=== PATIENT | male | born 1955 | race Caucasian/White ===

== ENCOUNTER 2016-10-31 16:19 | Emergency (ER) | payer OTHER ==
[~2016-10-31] VITALS: Ht 177.8 cm; Wt 90.0 kg
[2016-10-31 16:51] VITALS: Ht 177.8 cm; Wt 90.0 kg
[2016-10-31] MEDS ORDERED: SOD CHLORIDE 0.9% 500 ML IV STA (20:35)
[2016-10-31] MEDS ORDERED: KETOROLAC 15 MG INJ IV STA (20:35)
[2016-10-31 20:58] LABS: ADD SCAN DIFF NO
[2016-10-31 21:02] LABS: BASOPHILS % 0.5 % (0.0-2.0); EOSINOPHILS # 0.2 10^3/ul (0.0-0.5); HEMATOCRIT 46.1 % (42.0-52.0); LYMPHOCYTES # 2.9 10^3/ul (0.8-2.9); LYMPHOCYTES % 34.3 % (15.0-51.0); MEAN CORPUSCULAR HEMOGLOBIN 28.8 pg (29.0-33.0); MEAN CORPUSCULAR HGB CONC 32.5 g/dl (32.0-37.0); MEAN CORPUSCULAR VOLUME 88.7 fl (82.0-101.0); MEAN PLATELET VOLUME 9.9 fl (7.4-10.4); MONOCYTE # 0.8 10^3/ul (0.3-0.9); NEUTROPHIL # 4.4 10^3/ul (1.6-7.5); NEUTROPHILS % 52.8 % (39.0-77.0); PLATELET COUNT 255 10^3/UL (140-415); RED CELL DISTRIBUTION WIDTH 13.2 % (11.5-14.5); WHITE BLOOD COUNT 8.3 10^3/ul (4.8-10.8)
[2016-10-31 21:16] LABS: CHLORIDE 101 mmol/L (97-110)
[2016-10-31 21:17] LABS: POTASSIUM 4.1 mmol/L (3.5-5.1); SODIUM 143 mmol/L (135-144)
[2016-10-31 21:19] LABS: ALBUMIN/GLOBULIN RATIO 1.21; ALKALINE PHOSPHATASE 102 IU/L (42-121); ANION GAP 16 (8-16); ASPARTATE AMINO TRANSFERASE 30 IU/L (15-46); BILIRUBIN,INDIRECT 0.6 mg/dl (0-1.1); BILIRUBIN,TOTAL 0.6 mg/dl (0.2-1.3); CARBON DIOXIDE 30 mmol/L (21-31); CREATININE 1.09 mg/dl (0.61-1.24); TOTAL PROTEIN 7.3 g/dl (6.1-8.1)
[2016-10-31 21:20] LABS: ALANINE AMINOTRANSFERASE 54 IU/L (13-69); BLOOD UREA NITROGEN 31 mg/dl (7-20); CALCIUM 9.4 mg/dl (8.4-10.2); GLUCOSE 98 mg/dl (70-220)
--- NOTE | 2016-10-31 21:38 | RADRPT ---
PROCEDURE: XR Chest. CLINICAL INDICATION: Abdominal pain. TECHNIQUE: Single frontal view of the chest. COMPARISON: None. FINDINGS: The cardiomediastinal silhouette is within normal limits. The lungs are clear. No signs of pleural f luid or pneumothorax are seen. The osseous structures and soft tissues are unremarkable. IMPRESSION: No evidence for active cardiopulmonary disease. RPTAT: [facility] Physician Gelacio Date Time Electronically viewed and signed by Physician Gelacio on 10/31/2016 21:38 RS/
[2016-10-31 21:40] LABS: INR 1.11; PROTIME 14.3 Sec (12.2-14.2); PT RATIO 1.1
[2016-10-31 21:43] LABS: TROPONIN-I < 0.012 ng/ml (0.00-0.12)
[2016-10-31] MEDS ORDERED: NAPR-688 PO (21:55)
--- NOTE | 2016-10-31 22:00 | ERD ---
ER Documentation Chief Complaint Date/Time DATE: 10/31/16 TIME: 21:58 Chief Complaint INTERMITTENT CHEST PAIN VAGUE ONSET ROS All systems reviewed and are negative except as per history of present illness. Medications Home Meds Active Scripts Naproxen* (Naproxen*) 500 Mg Tablet, 500 MG PO BID Y for PAIN, #30 TAB Prov:AURORA MIKE MD 10/31/16 Allergies Allergies: Coded Allergies: No Known Allergy (Unverified , 10/31/16) PMhx/Soc Peripheral vascular disease with left femoral artery stents, peripheral vascular disease, chronic obstructive pulmonary disease, previous stroke, recent cardiac stress test which was negative and recent cardiac workup as an inpatient which was unremarkable. History of Surgery: Yes (3 STENTS ON LEFT LEG) Anesthesia Reaction: No Hx 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 Disorder: No Hx Respiratory Disorders: No Hx Cardiac Disorders: Yes (HTN, PVD) Hx Psychiatric Problems: Yes (ANXIETY) Hx Miscellaneous Medical Probl: No Hx Alcohol Use: Yes Hx Substance Use: Yes (FORMER ) Hx Tobacco Use: Yes Smoking Status: Current every day smoker FmHx Family History: diabetes Physical Exam Vitals Vital Signs Date Time Temp Pulse Resp B/P Pulse Ox O2 Delivery O2 Flow Rate FiO2 10/31/16 20:24 98.0 58 18 111/67 96 Room Air 10/31/16 16:51 97.6 60 16 108/68 98 Physical Exam Const: [] Head: Atraumatic Eyes: Normal Conjunctiva ENT: Normal External Ears, Nose and Mouth. Neck: Full range of motion..~ No meningismus. Resp: Clear to auscultation bilaterally Cardio: Regular rate and rhythm, no murmurs Abd: Soft, non tender, non distended. Normal bowel sounds Skin: No petechiae or rashes Back: No midline or flank tenderness Ext: No cyanosis, or edema Neur: Awake and alert Psych: Normal Mood and Affect Result Diagram: 10/31/16204410/31/162044 Results 24 hrs Laboratory Tests Test 10/31/16 20:45 White Blood Count 8.310^3/ul Red Blood Count 5.2010^6/ul Hemoglobin 15.0g/dl Hematocrit 46.1% Mean Corpuscular Volume 88.7fl Mean Corpuscular Hemoglobin 28.8pg Mean Corpuscular Hemoglobin Concent 32.5g/dl Red Cell Distribution Width 13.2% Platelet Count 27306^3/UL Mean Platelet Volume 9.9fl Neutrophils % 52.8% Lymphocytes % 34.3% Monocytes % 10.0% Eosinophils % 2.0% Basophils % 0.5% Nucleated Red Blood Cells % 0.0/100WBC Neutrophils # 4.410^3/ul Lymphocytes # 2.910^3/ul Monocytes # 0.810^3/ul Eosinophils # 0.210^3/ul Basophils # 0.010^3/ul Nucleated Red Blood Cells # 0.010^3/ul Prothrombin Time 14.3Sec Prothrombin Time Ratio 1.1 INR International Normalized Ratio 1.11 Sodium Level 143mmol/L Potassium Level 4.1mmol/L Chloride Level 101mmol/L Carbon Dioxide Level 30mmol/L Anion Gap 16 Blood Urea Nitrogen 31mg/dl Creatinine 1.09mg/dl Glucose Level 98mg/dl Calcium Level 9.4mg/dl Total Bilirubin 0.6mg/dl Direct Bilirubin 0.00mg/dl Indirect Bilirubin 0.6mg/dl Aspartate Amino Transf (AST/SGOT) 30IU/L Alanine Aminotransferase (ALT/SGPT) 54IU/L Alkaline Phosphatase 102IU/L Troponin I < 0.012ng/ml Total Protein 7.3g/dl Albumin 4.0g/dl Globulin 3.30g/dl Albumin/Globulin Ratio 1.21 Lipase 89U/L Current Medications Medications (Trade) Dose Ordered Sig/Briseida Route PRN Reason Start Time Stop Time Status Last Admin Dose Admin Sodium Chloride (NS) 500 ml @ 500 mls/hr Q1H STAT IV 10/31/16 20:35 10/31/16 21:34 DC 10/31/16 20:45 Ketorolac Tromethamine (Toradol) 15 mg ONCE STAT IV 10/31/16 20:35 10/31/16 20:36 DC 10/31/16 20:45 Procedures/MDM IV line was established patient was placed on quality assurance monitor chassis rhythm strip revealed a sinus rhythm at about 60 bpm with upright P and T waves. Patient was afebrile. EKG performed, read by me revealed a sinus bradycardia 56 bpm, normal axis, with a right ventricular conduction delay and a QRS duration of 100 ms, no concerning ST elevations or depressions noted. Chest X-ray 1V Interpreted by me: Soft Tissue: No acute abnormalities Bones: No acute abnormalities Mediastinum/Cardiac Silhouette/Lungs: No acute abnormalities Departure Diagnosis: Primary Impression: Chest pain Chest pain type: unspecified Qualified Code: R07.9 - Chest pain, unspecified type Condition: Good Patient Instructions: Chest Pain, Uncertain Cause AURORA MIKE MD Oct 31, 2016 22:00
[2016-10-31 22:58] VITALS: BP 107/66; PULSE 66; RESP 18; TEMP 98.2
== END 2016-10-31 23:25 | disposition home or self-care (01) ==
LOC: EDUNIT# 16:19 → E/R 16:19
DX: R07.9 Chest pain, unspecified (principal); I10 Essential (primary) hypertension; F17.210 Nicotine dependence, cigarettes, uncomplicated; J44.9 Chronic obstructive pulmonary disease, unspecified
CPT/HCPCS: 36415; 71010; 80053; 83690; 84484; 85025; 85610; 93005; 96374; J1885; J7040; Z7502

== ENCOUNTER 2016-11-08 18:39 | Inpatient (IN) | payer OTHER ==
[~2016-11-08] VITALS: Ht 176.5 cm; Wt 85.0 kg
[~2016-11-08 18:39] MED LIST: NAPR-688 PO
[2016-11-08 19:29] VITALS: Ht 176.5 cm; Wt 85.0 kg
[2016-11-08] MEDS ORDERED: ALPR1TAB7 PO (23:40)
[2016-11-08] MEDS ORDERED: FURO20TA3 PO (23:40)
[2016-11-08] MEDS ORDERED: LISI2.5T59 PO (23:41)
[2016-11-08] MEDS ORDERED: GABA300C16 PO (23:42)
[2016-11-08] MEDS ORDERED: CLOP75TA4 PO (23:44)
[2016-11-08] MEDS ORDERED: ATOR40TA68 PO (23:44)
[2016-11-08] MEDS ORDERED: HYDR-906 PO (23:45)
[2016-11-08] MEDS ORDERED: METO-448 PO (23:46)
[2016-11-08 23:50] LABS: ADD SCAN DIFF NO
[2016-11-08 23:51] LABS: BASOPHIL # 0.1 10^3/ul (0.0-0.1); BASOPHILS % 0.6 % (0.0-2.0); EOSINOPHILS # 0.2 10^3/ul (0.0-0.5); EOSINOPHILS % 2.6 % (0.0-7.0); HEMATOCRIT 40.3 % (42.0-52.0); HEMOGLOBIN 13.5 g/dl (14.0-18.0); LYMPHOCYTES # 2.6 10^3/ul (0.8-2.9); LYMPHOCYTES % 28.4 % (15.0-51.0); MEAN CORPUSCULAR HEMOGLOBIN 29.3 pg (29.0-33.0); MEAN CORPUSCULAR HGB CONC 33.5 g/dl (32.0-37.0); MEAN CORPUSCULAR VOLUME 87.4 fl (82.0-101.0); MEAN PLATELET VOLUME 9.8 fl (7.4-10.4); MONOCYTE # 0.7 10^3/ul (0.3-0.9); MONOCYTES % 7.6 % (0.0-11.0); NEUTROPHIL # 5.5 10^3/ul (1.6-7.5); NEUTROPHILS % 60.5 % (39.0-77.0); PLATELET COUNT 216 10^3/UL (140-415); RED BLOOD COUNT 4.61 10^6/ul (4.70-6.10); RED CELL DISTRIBUTION WIDTH 12.8 % (11.5-14.5); WHITE BLOOD COUNT 9.1 10^3/ul (4.8-10.8)
[2016-11-09] VITALS (8 sets, daily range): BP systolic 111–137; BP diastolic 68–78; PULSE 48–60; RESP 18–20; TEMP 98.5
[2016-11-09 00:06] LABS: PROTIME 13.2 Sec (12.2-14.2)
[2016-11-09 00:07] LABS: PARTIAL THROMBOPLASTIN TIME 30.4 Sec (25.0-35.0)
[2016-11-09 00:09] LABS: ALBUMIN 3.5 g/dl (3.3-4.9); ALBUMIN/GLOBULIN RATIO 1.25; ALKALINE PHOSPHATASE 98 IU/L (42-121); ANION GAP 8 (8-16); ASPARTATE AMINO TRANSFERASE 26 IU/L (15-46); BILIRUBIN,INDIRECT 0.2 mg/dl (0-1.1); BILIRUBIN,TOTAL 0.2 mg/dl (0.2-1.3); BLOOD UREA NITROGEN 18 mg/dl (7-20); CALCIUM 9.4 mg/dl (8.4-10.2); CARBON DIOXIDE 28 mmol/L (21-31); CHLORIDE 106 mmol/L (97-110); CREATININE 1.08 mg/dl (0.61-1.24); GLUCOSE 95 mg/dl (70-220); POTASSIUM 3.8 mmol/L (3.5-5.1); SODIUM 138 mmol/L (135-144); TOTAL PROTEIN 6.3 g/dl (6.1-8.1)
[2016-11-09 00:20] LABS: B-TYPE NATRIURETIC PEPTIDE 77 PG/ML (0-125)
[2016-11-09 00:30] LABS: ALANINE AMINOTRANSFERASE 49 IU/L (13-69); TROPONIN-I < 0.012 ng/ml (0.00-0.12)
--- NOTE | 2016-11-09 00:41 | RADRPT ---
PROCEDURE: Chest. CLINICAL INDICATION: Chest pain. TECHNIQUE: Single frontal view of the chest was obtained. COMPARISON: 10/31/2016. FINDINGS: The cardiac silhouette is within normal limits. The aortic arch is unremarkable. There is no focal consolidation, vascular congestion or pleural effusion. There is no pneumothorax. IMPRESSION: No evidence for active cardiopulmonary disease. .Victoriano Martinez MD, Date Time Electronically viewed and signed by .Victoriano Martinez MD, on 11/09/2016 00:41 .T/
--- NOTE | 2016-11-09 03:59 | ERA ---
ER Documentation Chief Complaint Date/Time DATE: 11/09/16 TIME: 03:58 Chief Complaint STATES "I HAD 3 STROKES TODAY AND PASSED OUT" +CP RADITING TO LT LEG. HPI This is a 60-year-old male comes in with chest pain radiating to his left arm and left leg. Chest pain is sharp, pressure-like, nonexertional positional no exacerbating relieving factors. Patient has history of hypertension and says he has had a history of a stroke in the past. ROS All systems reviewed and are negative except as per history of present illness. Medications Home Meds Active Scripts Naproxen* (Naproxen*) 500 Mg Tablet, 500 MG PO BID Y for PAIN, #30 TAB Prov:AURORA MIKE MD 10/31/16 Reported Medications Metoprolol Tartrate* (Lopressor*) 25 Mg Tab, 25 MG PO DAILY, #30 TAB 11/08/16 Hydrocodone/Acetaminophen ([place] 5-325 Tablet) 1 Each Tablet, 1 EACH PO Q6H for PAIN, TAB 11/08/16 Clopidogrel Bisulfate* (Clopidogrel Bisulfate*) 75 Mg Tablet, 75 MG PO DAILY, # 30 TAB 11/08/16 Atorvastatin* (Atorvastatin*) 40 Mg Tablet, 40 MG PO QHS, #30 TAB 11/08/16 Gabapentin* (Gabapentin*) 300 Mg Capsule, 300 MG PO TID, #90 CAP 11/08/16 Lisinopril* (Lisinopril*) 2.5 Mg Tablet, 2.5 MG PO DAILY, #30 TAB 11/08/16 Furosemide* (Furosemide*) 20 Mg Tablet, 20 MG PO BID, #30 TAB 11/08/16 Alprazolam* (Alprazolam*) 1 Mg Tablet, 1 MG PO Q8H Y for ANXIETY, TAB 11/08/16 Allergies Allergies: Coded Allergies: No Known Allergy (Unverified , 11/08/16) PMhx/Soc History of Surgery: Yes (3 STENTS ON LEFT LEG) Anesthesia Reaction: No Hx 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 Disorder: No Hx Respiratory Disorders: No Hx Cardiac Disorders: Yes (HTN, PVD) Hx Psychiatric Problems: Yes (ANXIETY) Hx Miscellaneous Medical Probl: No Hx Alcohol Use: Yes Hx Substance Use: Yes (FORMER ) Hx Tobacco Use: Yes Smoking Status: Current every day smoker Physical Exam Vitals Vital Signs Date Time Temp Pulse Resp B/P Pulse Ox O2 Delivery O2 Flow Rate FiO2 11/09/16 03:00 54 18 100/68 96 Nasal Cannula 2.0 11/09/16 01:00 75 18 118/74 99 Nasal Cannula 2.0 11/08/16 23:20 98.0 64 16 104/65 98 Nasal Cannula 2.0 11/08/16 23:20 Nasal Cannula 2 11/08/16 19:29 97.6 78 18 105/60 96 Physical Exam Const: [] Head: Atraumatic Eyes: Normal Conjunctiva ENT: Normal External Ears, Nose and Mouth. Neck: Full range of motion..~ No meningismus. Resp: Clear to auscultation bilaterally Cardio: Regular rate and rhythm, no murmurs Abd: Soft, non tender, non distended. Normal bowel sounds Skin: No petechiae or rashes Back: No midline or flank tenderness Ext: No cyanosis, or edema Neur: Awake and alert Psych: Normal Mood and Affect Result Diagram: 11/08/16 2330 11/08/16 2330 Results 24 hrs Laboratory Tests Test 11/08/16 23:30 White Blood Count 9.110^3/ul Red Blood Count 4.6110^6/ul Hemoglobin 13.5g/dl Hematocrit 40.3% Mean Corpuscular Volume 87.4fl Mean Corpuscular Hemoglobin 29.3pg Mean Corpuscular Hemoglobin Concent 33.5g/dl Red Cell Distribution Width 12.8% Platelet Count 26530^3/UL Mean Platelet Volume 9.8fl Neutrophils % 60.5% Lymphocytes % 28.4% Monocytes % 7.6% Eosinophils % 2.6% Basophils % 0.6% Nucleated Red Blood Cells % 0.0/100WBC Neutrophils # 5.510^3/ul Lymphocytes # 2.610^3/ul Monocytes # 0.710^3/ul Eosinophils # 0.210^3/ul Basophils # 0.110^3/ul Nucleated Red Blood Cells # 0.010^3/ul Prothrombin Time 13.2Sec Prothrombin Time Ratio 1.0 INR International Normalized Ratio 1.00 Activated Partial Thromboplast Time 30.4Sec Sodium Level 138mmol/L Potassium Level 3.8mmol/L Chloride Level 106mmol/L Carbon Dioxide Level 28mmol/L Anion Gap 8 Blood Urea Nitrogen 18mg/dl Creatinine 1.08mg/dl Glucose Level 95mg/dl Calcium Level 9.4mg/dl Total Bilirubin 0.2mg/dl Direct Bilirubin 0.00mg/dl Indirect Bilirubin 0.2mg/dl Aspartate Amino Transf (AST/SGOT) 26IU/L Alanine Aminotransferase (ALT/SGPT) 49IU/L Alkaline Phosphatase 98IU/L Troponin I < 0.012ng/ml B-Type Natriuretic Peptide 77PG/ML Total Protein 6.3g/dl Albumin 3.5g/dl Globulin 2.80g/dl Albumin/Globulin Ratio 1.25 Procedures/MDM EKG: Rate/Rhythm: [Normal Sinus Rhythm] QRS, ST, T-waves: [No changes consistent w/ acute ischemia] Impression: [No evidence of ischemia or arrhythmia] Chest X-ray 1V Interpreted by me: Soft Tissue: No acute abnormalities Bones: No acute abnormalities Mediastinum/Cardiac Silhouette/Lungs: [No acute abnormalities] Patient's symptoms are concerning for cardiac cause will require inpatient workup and continuous monitoring. Further w/u for ischemia, arrhythmia, PE or dissection will be deferred to the inpatient team. Accepting Care Team: Current data and ongoing care discussed. Time: 3 AM Primary Provider: Hospitalist Consulting: [XOXOXO] Outstanding Data: none Departure Diagnosis: Primary Impression: Chest pain Qualified Code: I20.9 - Chest pain due to myocardial ischemia, unspecified ischemic chest pain type Condition: Serious KENNETH SANCHEZ November 09, 2016 03:59
[2016-11-09] MEDS ORDERED: ONDANSETRON 4 MG INJ IV PRN (05:30)
[2016-11-09] MEDS ORDERED: NITROGLYCERIN (SL) 0.4 MG TAB SL PRN (05:30)
[2016-11-09] MEDS ORDERED: NACL 0.9% 3 ML SYG IV SCH (05:30)
[2016-11-09] MEDS ORDERED: ACETAMINOPHEN 325 MG TAB PO PRN (05:30)
[2016-11-09] MEDS: SOD CHLORIDE 0.9% 1,000 ML IV SCH ×2 (05:45→16:46)
[2016-11-09] MEDS ORDERED: HEPARIN 5,000 UNIT/0.5 ML VIAL SC SCH (06:00)
[2016-11-09 07:19] LABS: CREATINE KINASE 52 IU/L (23-200)
[2016-11-09 07:33] LABS: TROPONIN-I < 0.012 ng/ml (0.00-0.12)
--- NOTE | 2016-11-09 07:33 | HP ---
Date/Time of Note Date/Time of Note DATE: 11/09/16 TIME: 07:21 Assessment/Plan VTE Prophylaxis VTE Prophylaxis Intervention: heparin Lines/Catheters IV [facility]from [facility] Saline Lock Assessment/Plan Chief Complaint/Hosp Course This is a 60-year-old male being admitted today for chest pain and slurred speech to telemetry: #1 chest pain rule out ACS: Patient has multiple risk factors, we will order troponins 3, will order an echocardiogram. Telemetry monitoring, lipid panel. No active chest pain at this time. #2 slurred speech: Medication versus anxiety versus intracranial abnormality. At this time based on patient's presentation I do not believe that he suffered a stroke. His neurological exam is relatively within normal limits he does have some slurring of speech however the patient does appear very tired on exam and he did take Seroquel which could have made him drowsy. At this time will order a CAT scan of the brain. Continue to monitor the patient if we need further evaluation we may consider consulting neurology. Carotid duplex #3 PVD: Continue statin, confirmed medications again with patient as he does not recall all his meds right now, continue Plavix. PT evaluation once cleared from neurologic and cardiac perspective. Patient does state that he has been noticing weakness in his left leg and he would like to return to rehab again as he feels like he left rehab to early after his procedure on his left leg for. #4 polyneuropathy, stable continue gabapentin, hold [place] #5 anxiety, hold benzo until slurred speech evaluation completed. #6 DVT GI prophylaxis, heparin, acid [place] Problems: HPI/ROS Admit Date/Time Admit Date/Time 11/09/2016 Hx of Present Illness Chief complaint: Chest pain, "strokes" This is a 60-year-old male who is coming in today with multiple complaints of chest pain and and "strokes." Patient states that he has been having on and off chest pain of the left chest that comes and goes. He states is a sharp pain. Denies any diaphoresis or lower extremity swelling. Patient also states that from a friend he took Seroquel and after taking Seroquel he started noticing seeing mancera and apparently stated out a few times. He states that he thinks that he had multiple strokes. He states that he also has noticed some slurring of speech. Patient is currently living out of his car and does not like living there. On physical exam, patient repeatedly states that he does not want to go back to his car. He also states that during a previous admission where he was treated for left lower extremity peripheral vascular disease with stents placed that he was sent to rehab however he left rehab early and he would like to go back again. ROS Const: Negative for fever, chills, weight gain or weight loss, fatigue, or diaphoresis Eyes : No pain discharge or redness or change in visual acuity ENT: No pain, sore throat, congestion, congestion, dysphagia or discharge Respiratory: No shortness of breath, cough, sputum, wheezing, or pleuritic pain Cardiovascular: Negative except for what is mentioned in HPI GI : no change in appetite, abdominal pain, nausea, vomiting, diarrhea, constipation, or change in the color his stool Genitourinary: No dysuria, hematuria, flank pain , discharge or CVA tenderness Musculoskeletal: No joint pain, back pain, neck pain, restricted range of motion in neck or joints Skin: No rash, bruising or hives Neuro: Negative except for what is mentioned in HPI Endocrine: No polyuria, polydipsia, temperature intolerance Psych: No hallucination, depression, anxiety or suicidal ideation PMH/Family/Social Past Medical History Peripheral vascular disease, [place], COPD, polyneuropathy Past Surgical History Left lower extremity stents Family History Significant Family History: diabetes, hypertension Social History Alcohol Use: none Smoking Status: Current every day smoker Drug Use: none Exam/Review of Systems Vital Signs Vitals Vital Signs Date Time Temp Pulse Resp B/P Pulse Ox O2 Delivery O2 Flow Rate FiO2 11/09/16 05:00 71 16 122/75 97 Nasal Cannula 2.0 11/08/16 23:20 98.0 Exam Exam General: Patient lying in bed comfortably. The patient is alert oriented -3 HEENT: Atraumatic, normocephalic. The pupils are equal, round and reactive. Extraocular motor are intact Neck: Supple with full range of motion. No rigidity or meningismus Chest: Nontender Lungs: Clear to auscultation bilaterally no crackles rales or wheezing Heart: Normal S1-S2, Regular rhythm and rate. Abdomen: Soft , nontender, nondistended , bowel sounds are present. No guarding no rebound tenderness , No masses or organomegaly. No costovertebral temporal angle mass Extremities: Normal to inspection, no edema no cyanosis Neurologic: Left lower extremity strength 4-5, mild slurring of speech however patient was in and out of sleep during exam. Additional Comments PROCEDURE: Chest. CLINICAL INDICATION: Chest pain. TECHNIQUE: Single frontal view of the chest was obtained. COMPARISON: 10/31/2016. FINDINGS: The cardiac silhouette is within normal limits. The aortic arch is unremarkable. There is no focal consolidation, vascular congestion or pleural effusion. There is no pneumothorax. IMPRESSION: No evidence for active cardiopulmonary disease. .Victoriano Martinez MD, MD Date Time Electronically viewed and signed by .Victoriano Martinez MD, MD on 11/09/2016 00:41 EKG: Rate/Rhythm: [Normal Sinus Rhythm] QRS, ST, T-waves: [No changes consistent w/ acute ischemia] Impression: [No evidence of ischemia or arrhythmia] Above per ED documentation Labs Result Diagram: 11/08/16 2330 11/08/16 2330 Medications Medications Current Medications Sodium Chloride (NS) 1,000 ml @ 100 mls/hr Q10H IV Last administered on t 05:45; Admin Dose 100 MLS/HR; Start 11/09/16 at 05:11 Ondansetron HCl (Zofran Inj) 4 mg Q6H PRN IV NAUSEA AND/OR VOMITING; Start 11/09 at 05:30 Nitroglycerin (Nitroglycerin (Sl Tab) 0.4 Mg) 1 tab Q5M PRN SL CHEST PAIN; Start 11/09/16 at 05:30 Acetaminophen (Tylenol Tab) 650 mg Q6H PRN PO PAIN LEVEL 1-3 OR FEVER; Start at 05:30 Famotidine (Pepcid) 20 mg Q12 PO ; Start 11/09/16 at 09:00 Heparin Sodium (Porcine) (Heparin (5000 Units/0.5 ml)) 5,000 unit Q8 SC ; Start 11/09/16 at 06:00 BALDOMERO SIMMS November 09, 2016 07:31
--- NOTE | 2016-11-09 07:38 | RADRPT ---
PROCEDURE: CT Brain without contrast. CLINICAL INDICATION: Pain, headache TECHNIQUE: Routine CT scan of the brain was performed on a high resolution multi detector scanner without intravenous contrast. One or more of the following dose reduction techniques were used: Auto mated exposure control; Adjustment of the mA and/or kV according to patient size; Use of iterative r econstruction technique. CTDI = 44 mGy. DLP = 110 mGy-cm. COMPARISON: No prior relevant examinations are available for comparison. FINDINGS: Hemorrhage: No evidence of intracranial hemorrhage. Acute ischemic changes: No evidence of acute ischemic changes. Mass effect/Midline shift: None. Parenchymal volume: Mild central parenchymal volume loss is evident. Ventricular system: Concordant with parenchymal volume. Chronic changes: Small chronic appearing infarcts of the right periventricular white matter and left sub insular region measuring 10 mm. There are multiple areas of low attenuation change within the supratentorial white matter most compatible with moderate chronic microvascular ischemic changes. Atherosclerotic calcifications of the cavernous portions of both internal carotid arteries are prese nt. Extracranial soft tissues: Unremarkable. Calvarium: No fractures. Paranasal sinuses: Visualized paranasal sinuses are clear. Mastoid air cells: Visualized mastoid air cells are clear. IMPRESSION: No acute intracranial abnormalities. Chronic-appearing white matter infarcts of the right jamison radiata and left sub insular region. Mod erate chronic-appearing microvascular ischemic changes of the supratentorial white matter. RPTAT: AADD .Gilberto Cramer MD, Date Time Electronically viewed and signed by .Gilberto Cramer MD, on 11/09/2016 07:38 .B/
--- NOTE | 2016-11-09 09:41 | RADRPT ---
PROCEDURE: US Carotids. CLINICAL INDICATION: bruit , slurred speech TECHNIQUE: Multiple sonographic of the carotid bifurcation region and vertebral arteries were obta ined utilizing mancera scale, duplex and color-flow imaging. The images were reviewed on a PACS worksta tion. COMPARISON: No prior studies are available for comparison. FINDINGS: Evaluation of the right carotid bifurcation region reveals mild calcific atherosclerotic disease. Evaluation of the left carotid bifurcation region reveals mild calcific atherosclerotic disease. There is antegrade flow within the vertebral arteries bilaterally. RIGHT CAROTID MEASUREMENTS: Common Carotid [id number] (cm/sec) Internal Carotid Artery - fmlbyxtp80 (cm/sec) Internal Carotid Artery - mid44.4 (cm/sec) Internal Carotid Artery - xgaozb79.7 (cm/sec) Internal Carotid/Common Carotid1.33 LEFT CAROTID MEASUREMENTS: Common Carotid Jzpxxi57 (cm/sec) Internal Carotid Artery - gauonjbo78.4 (cm/sec) Internal Carotid Artery - mid59.2 (cm/sec) Internal Carotid Artery - ltbwoz75 (cm/sec) Internal Carotid/Common Carotid1.22 RPTAT: AA IMPRESSION: No evidence for hemodynamically significant stenosis in the bilateral internal carotid arteries - va lidated velocity measurements with angiographic measurements, velocity criteria are extrapolated fro m diameter data as defined by the Society of Radiologists in Ultrasound Consensus Conference Radiolo gy 2003; 229;340-346. This study does indirectly reference the measurement of the distal ICA diamet er as the denominator for stenosis measurement. Normal antegrade flow in the vertebral arteries bilaterally. .Alden Grijalva MD, MD Date Time Electronically viewed and signed by .Alden Grijalva MD, MD on 11/09/2016 09:41 .S/
[2016-11-09] MEDS: GABAPENTIN 300 MG CAP PO SCH ×3 (10:11→21:02)
[2016-11-09] MEDS: METOPROLOL 25 MG TAB PO SCH (10:11)
[2016-11-09] MEDS: FAMOTIDINE 20 MG TAB PO SCH ×2 (10:13→21:02)
[2016-11-09] MEDS: LISINOPRIL 5 MG TAB PO SCH (10:13)
[2016-11-09] MEDS: CLOPIDOGREL 75 MG TAB PO SCH (10:13)
[2016-11-09 11:25] LABS: CHOL/HDL RATIO 3.7 RATIO
[2016-11-09 14:06] LABS: CREATINE KINASE 46 IU/L (23-200)
[2016-11-09 14:18] LABS: CK-MB 0.35 ng/ml (0.0-2.4); TROPONIN-I < 0.012 ng/ml (0.00-0.12)
[2016-11-09] MEDS ORDERED: morphine 2 MG INJ IV PRN (19:00)
[2016-11-09] MEDS: morphine 2 MG INJ IV PRN ×2 (19:22→23:37)
[2016-11-09] MEDS: ATORVASTATIN 40 MG TAB PO SCH (21:02)
[2016-11-09] MEDS: HEPARIN 5,000 UNIT/0.5 ML VIAL SC SCH (21:07)
[2016-11-10] VITALS (11 sets, daily range): BP systolic 96–126; BP diastolic 62–70; PULSE 45–75; RESP 18–20
[2016-11-10] MEDS: SOD CHLORIDE 0.9% 1,000 ML IV SCH ×2 (03:39→11:11)
[2016-11-10] MEDS: morphine 2 MG INJ IV PRN ×5 (03:39→19:55)
[2016-11-10] MEDS: HEPARIN 5,000 UNIT/0.5 ML VIAL SC SCH ×3 (06:40→21:22)
[2016-11-10] MEDS: METOPROLOL 25 MG TAB PO SCH (08:07)
[2016-11-10] MEDS: LISINOPRIL 5 MG TAB PO SCH (08:08)
[2016-11-10] MEDS: CLOPIDOGREL 75 MG TAB PO SCH (08:30)
[2016-11-10] MEDS: GABAPENTIN 300 MG CAP PO SCH ×3 (08:30→21:17)
[2016-11-10] MEDS: FAMOTIDINE 20 MG TAB PO SCH ×2 (08:31→21:17)
[2016-11-10] MEDS ORDERED: BISACODYL (EC) 5 MG TAB PO PRN (14:30)
--- NOTE | 2016-11-10 15:55 | CONS ---
DATE OF ADMISSION: 11/09/2016 DATE OF CONSULTATION: 11/10/2016 TYPE OF CONSULTATION: Vascular surgery. Dear Doctors: Mr. Kaplan is a 60-year-old gentleman who has been admitted to [facility] secondary to chest pain and slurred speech in which he was admitted to telemetry for evaluation. It seems th at the patient thought he was having a stroke after taking a medication called Seroquel in order to help him sleep better. During his evaluation, the patient's symptoms seem to have resolved, and upo n his evaluation of a CT scan of the head, no acute intracranial abnormalities were identified. Fur ther, the patient had a carotid Doppler that did not identify any hemodynamically significant stenos is. The patient is currently an active smoker, about a pack every 2 days for the past 40 years, and he has had history of bilateral lower extremity atherosclerosis with disabling claudication. It se ems the patient had undergone a left lower extremity angiogram and intervention at an outside hospit al by an power driven brush maker. The patient mentioned he had some stents placed, and his limb seems to be slightly better. However, he has noticed that his right lower extremity has significan tly worsened since his intervention, and the patient has very limited 5- to 10-minute short-distance claudication. At the moment, he denies shortness of breath, chest pain, nausea, vomiting, fever or chills. REVIEW OF SYSTEMS: A 12-point review performed and negative except what is mentioned in the HPI. PAST MEDICAL HISTORY: Entails homelessness, noncompliance, bilateral lower extremity atheroscleroti c disease with short-distance disabling claudication, peripheral neuropathy, [place], COPD. SURGICAL HISTORY: Left lower extremity angiogram and intervention. Active smoker. FAMILY HISTORY: Positive for diabetes and hypertension. SOCIAL HISTORY: Positive for tobacco. Denies alcohol or illicit drug use. PHYSICAL EXAMINATION: GENERAL: Alert, oriented x3. No apparent distress. HEENT: Normocephalic, atraumatic. EOMI. Mucosa moist. NECK: Supple. No carotid bruit. PULMONARY: Clear to auscultation bilaterally. No crackles. CARDIOVASCULAR: S1, S2 present. No murmurs. ABDOMEN: Soft, nontender, nondistended. Bowel sounds positive. RIGHT LOWER EXTREMITY: Palpable femoral pulse, nonpalpable pedal pulse. Motor, sensory intact. Ca pillary refill 3 to 4 seconds and dependent rubor. The patient had a previous injury to the right f oot where there is a previous surgical scar on the plantar aspect of the forefoot. LEFT LOWER EXTREMITY: Palpable femoral pulse, nonpalpable pedal pulse. Motor, sensory intact. Cap illary refill 2 to 3 seconds. ASSESSMENT AND PLAN: Bilateral lower extremity atherosclerosis with short-distance disabling claudi cation: Seems the patient has peripheral arterial disease with being an active smoker. I have enco uraged the patient for smoking cessation and educated him. However, the patient will likely require noninvasive vascular studies in order to better ascertain his infrainguinal disease. Further, we w ill evaluate his stent placement to the left lower extremity as well. Will plan to educate the patient more in terms of his overall medical health and also have the patie nt on antiplatelets, aspirin and Plavix. Discussed findings, plan and management with the patient, and he understands. Thank you for allowing us to partake in the care of your patient. Please call with any questions. Dictated By: KAYLA ENRIQUEZ/SKYLER Conf#: [id number] DID#: [id number]
[2016-11-10 16:06] LABS: OPIATES POSITIVE (NEGATIVE)
[2016-11-10 16:07] LABS: BARBITURATES NEGATIVE (NEGATIVE); BENZODIAZEPINES NEGATIVE (NEGATIVE); CANNABINOIDS NEGATIVE (NEGATIVE); COCAINE NEGATIVE (NEGATIVE)
--- NOTE | 2016-11-10 20:57 | PN ---
DATE: 11/10/2016 TIME OF EVALUATION: 2:30 p.m. SUBJECTIVE DATA: The patient complains of bilateral lower extremity pain and left arm pain. The patient also verbalized that he wants to kill himself if he will be going back to live in his car because he is homeless. OBJECTIVE DATA: VITAL SIGNS: Temperature 98.2, pulse rate 54, respiratory rate 18, blood pressure 108/63, oxygen saturation 97% on room air. GENERAL: This is an overweight male patient lying in bed in no apparent distress. HEENT: Head normocephalic, atraumatic. Eyes: Anicteric sclerae. Conjunctivae clear. ENT: Nasal septum is midline. Oral mucosa is moist. NECK: Supple. No JVD noticed. RESPIRATORY: Bilaterally diminished breath sounds. No adventitious breath sounds heard. No use of accessory muscles of respiration. CARDIAC: Regular rate and rhythm. S1, S2 heard. ABDOMEN: Soft, nontender and nondistended. Bowel sounds positive in all 4 quadrants. GENITOURINARY: Deferred. EXTREMITIES: No cyanosis, no clubbing, no edema. Bilateral dorsalis pedis pulses are 1+ and palpable. NEUROLOGIC: The patient is awake, alert and oriented. Cranial nerves grossly intact. PSYCHIATRIC: Normal mood, cooperative. Suicidal ideation. LABORATORY DATA: WBC 9.1, hemoglobin 13.5, hematocrit 40.3, platelet count 216. Sodium 130, potassium 3.9, chloride 106, carbon dioxide 20, anion gap 8, BUN 18, creatinine 1.08, glucose 95, AST 26, ALT 49, alkaline phosphatase 98. ASSESSMENT AND PLAN: 1. Chest pain. Serial troponins negative. Continue dual antiplatelet therapy. Pending 2D echocardiogram. 2. Peripheral vascular disease. The patient verbalized that he had peripheral stenting to his left lower extremity a few weeks ago at [facility]. Bilateral lower extremity arterial Doppler study will be ordered. Will call a vascular surgery consult on the case. 3. Reported slurred speech. Brain CT scan showing chronic-appearing white matter infarcts in right jamison radiata and left subinsular region with moderate chronic-appearing microvascular ischemic changes of the supratentorial white matter. Physical therapy evaluation. 4. Peripheral vascular disease with stenting in the past. Continue dual antiplatelet therapy. 5. Suicidal ideation. The patient verbalized that he wants to kill himself if he is to go to live in his car because he is homeless. A 1-to-1 sitter will be ordered. A telepsychiatric evaluation will be ordered. 6. Fluid, electrolytes and nutrition. Low-cholesterol diet. 7. Deep venous thrombosis prophylaxis. Subcutaneous heparin. 8. Gastrointestinal prophylaxis. Histamine 2 receptor blockers. PLAN: Obtain physical therapy evaluation. Obtain bilateral lower extremity arterial Doppler study. Obtain vascular surgery evaluation. Obtain telepsychiatry. Case discussed with Dr. Mac. AZALEA MAC MD, AM/SKYLER Conf#: [id number] DID#: [id number] MTDD
[2016-11-10] MEDS: ATORVASTATIN 40 MG TAB PO SCH (21:16)
[2016-11-10] MEDS: DOCUSATE SODIUM 100 MG CAP PO SCH (21:17)
[2016-11-10] MEDS: POLYETHYLENE GLYCOL 17 GM PACKET PO SCH (21:17)
[2016-11-11] VITALS (12 sets, daily range): BP systolic 107–134; BP diastolic 62–71; PULSE 48–80; RESP 18–20
[2016-11-11] MEDS: morphine 2 MG INJ IV PRN ×6 (00:13→20:50)
[2016-11-11] MEDS: HEPARIN 5,000 UNIT/0.5 ML VIAL SC SCH ×3 (05:10→22:37)
--- NOTE | 2016-11-11 06:52 | RADRPT ---
PROCEDURE: US Lower Extremity Arteries. CLINICAL INDICATION: Claudication, pain TECHNIQUE: Multiple longitudinal and transverse images of the bilateral lower extremity arteries w ere obtained with mancera scale and color Doppler imaging. COMPARISON: No prior studies are available for comparison. FINDINGS: RIGHT: CAA614.5 cm/sec TUEY589.2 cm/sec LAVR585.5 cm/sec DSFA53.5 cm/sec POP71.5 cm/sec PTA78.0 cm/sec DPA31.2 cm/sec LEFT: CFA78.0 cm/sec QFKU075.9 cm/sec MSFA87.1 cm/sec DSFA64.1 cm/sec POP61.5 cm/sec PTA22.6 cm/sec DPA34.7 cm/sec Normal triphasic wave forms are seen throughout. IMPRESSION: No sonographic evidence for hemodynamically significant stenosis or occlusion. RPTAT:HH .Rhina Grijalva MD, MD Date Time Electronically viewed and signed by .Rhina Grijalva MD, on 11/11/2016 06:52 .G/
[2016-11-11 07:00] LABS: ADD SCAN DIFF NO
[2016-11-11 07:08] LABS: BASOPHIL # 0.1 10^3/ul (0.0-0.1); BASOPHILS % 0.7 % (0.0-2.0); EOSINOPHILS # 0.3 10^3/ul (0.0-0.5); EOSINOPHILS % 3.1 % (0.0-7.0); HEMATOCRIT 41.5 % (42.0-52.0); HEMOGLOBIN 13.9 g/dl (14.0-18.0); LYMPHOCYTES # 2.5 10^3/ul (0.8-2.9); LYMPHOCYTES % 28.1 % (15.0-51.0); MEAN CORPUSCULAR HEMOGLOBIN 28.7 pg (29.0-33.0); MEAN CORPUSCULAR HGB CONC 33.5 g/dl (32.0-37.0); MEAN CORPUSCULAR VOLUME 85.6 fl (82.0-101.0); MEAN PLATELET VOLUME 10.1 fl (7.4-10.4); MONOCYTE # 0.6 10^3/ul (0.3-0.9); MONOCYTES % 7.1 % (0.0-11.0); NEUTROPHIL # 5.3 10^3/ul (1.6-7.5); NEUTROPHILS % 60.8 % (39.0-77.0); PLATELET COUNT 205 10^3/UL (140-415); RED BLOOD COUNT 4.85 10^6/ul (4.70-6.10); RED CELL DISTRIBUTION WIDTH 12.6 % (11.5-14.5); WHITE BLOOD COUNT 8.7 10^3/ul (4.8-10.8)
[2016-11-11 07:34] LABS: POTASSIUM 3.9 mmol/L (3.5-5.1)
[2016-11-11 07:37] LABS: CREATININE 0.87 mg/dl (0.61-1.24)
[2016-11-11 07:38] LABS: CALCIUM 8.9 mg/dl (8.4-10.2)
[2016-11-11 07:41] LABS: PHOSPHORUS 2.9 mg/dl (2.5-4.9)
[2016-11-11 07:48] LABS: TROPONIN-I < 0.012 ng/ml (0.00-0.12)
[2016-11-11] MEDS: METOPROLOL 25 MG TAB PO SCH (08:06)
[2016-11-11] MEDS: POLYETHYLENE GLYCOL 17 GM PACKET PO SCH ×2 (08:12→20:48)
[2016-11-11] MEDS: GABAPENTIN 300 MG CAP PO SCH ×3 (08:13→20:48)
[2016-11-11] MEDS: ASPIRIN (EC) 81 MG TAB PO SCH (08:13)
[2016-11-11] MEDS: CLOPIDOGREL 75 MG TAB PO SCH (08:13)
[2016-11-11] MEDS: DOCUSATE SODIUM 100 MG CAP PO SCH ×2 (08:13→20:48)
[2016-11-11] MEDS: LISINOPRIL 5 MG TAB PO SCH (08:13)
[2016-11-11] MEDS: FAMOTIDINE 20 MG TAB PO SCH ×2 (08:14→20:48)
--- NOTE | 2016-11-11 13:01 | PSY ---
Date/Time of Note Date/Time of Note DATE: 11/11/16 TIME: 12:58 Psychiatric Subjective Eval Consent Pt consented to telemedicine: Yes Subjective Evaluation Patient location: inpatient Chief Complaint: STATES "I HAD 3 STROKES TODAY AND PASSED OUT" +CP RADITING TO LT LEG. History of present illness Spoke with SILVANO Hughes Pt is 60 yo homeless disabled male who stated, he will kill himself if discharged. HE denies it now, saying, he slept in his car, it was hot outisde and he is fine now because he knows he will go to [facility]. He denies si or hi, denies ah or vh. He is depressed and irritable, sleep and appeite good, hopeful , future oriented. No ah or vh. Past psychiatric history none Hospitalization: no Family History denies Medical history Problems Medical Problems: (1) Chest pain Status: Acute (2) Chest pain Status: Acute Allergies: Coded Allergies: No Known Allergy (Unverified , 11/08/16) Substance Abuse Substance abuse history: Yes Prior substance abuse treatmen: Yes Social History Marital status: single Level of education: HS DPA/Conservatorship: No Occupation/Nursing Home: disabled Psychiatric Objective Eval Physical Examination: Sleep: Adequate Appetite: Adequate Energy: Adequate Interest: Adequate Mental Status Examination: Appearance: Groomed Eye Contact: Good Psychomotor Activity: Normal Behavior: Cooperative Speech: Clear AFFECT: Appropriate Mood: Depressed Though Process: Linear Thought Content: Normal Suicidal: No Homicidal: No On 72 hour hold: No Orientation: x4 Cognition: Alert Insight: Impared Judgement: Intact Laboratory Results Laboratory Tests Test 11/09/16 13:30 11/10/16 14:30 11/10/16 15:00 11/11/16 06:30 Creatine Kinase 46IU/L Creatine Kinase Index 0.8 Creatinine Kinase MB (Mass) 0.35ng/ml Troponin I < 0.012ng/ml < 0.012ng/ml Urine Opiates Screen POSITIVE Urine Barbiturates NEGATIVE Urine Amphetamines Screen NEGATIVE Urine Benzodiazepines Screen NEGATIVE Urine Cocaine Screen NEGATIVE Urine Cannabinoids NEGATIVE Hemoglobin A1c 5.5% 5.4% White Blood Count 8.710^3/ul Red Blood Count 4.8510^6/ul Hemoglobin 13.9g/dl Hematocrit 41.5% Mean Corpuscular Volume 85.6fl Mean Corpuscular Hemoglobin 28.7pg Mean Corpuscular Hemoglobin Concent 33.5g/dl Red Cell Distribution Width 12.6% Platelet Count 91341^3/UL Mean Platelet Volume 10.1fl Neutrophils % 60.8% Lymphocytes % 28.1% Monocytes % 7.1% Eosinophils % 3.1% Basophils % 0.7% Nucleated Red Blood Cells % 0.0/100WBC Neutrophils # 5.310^3/ul Lymphocytes # 2.510^3/ul Monocytes # 0.610^3/ul Eosinophils # 0.310^3/ul Basophils # 0.110^3/ul Nucleated Red Blood Cells # 0.010^3/ul Sodium Level 138mmol/L Potassium Level 3.9mmol/L Chloride Level 103mmol/L Carbon Dioxide Level 29mmol/L Anion Gap 10 Blood Urea Nitrogen 14mg/dl Creatinine 0.87mg/dl Glucose Level 79mg/dl Calcium Level 8.9mg/dl Phosphorus Level 2.9mg/dl Magnesium Level 2.0mg/dl Assessment and Plan Assessment/Diagnosis [place] I: ADJUSTMENT DISORDER WITH DEPRESSED MOOD [place] II: DEFERED [place] III: PER RECORD [place] IV: SEVERE [place] V: GAF 45 Recommendation/Plan Medication Management LEXAPRO 5 MG POQHS FOR DEPRESSION Psychotherapy DEFER TO OUTPT Follow-up/Disposition NO DTS, DTO, GD. PLEASE REFER TO OUTPT MENTAL HEALTH. ODELL BEAR MD November 11, 2016 13:01
--- NOTE | 2016-11-11 14:09 | PN ---
Date/Time of Note Date/Time of Note DATE: 11/11/16 TIME: 14:02 Assessment/Plan VTE Prophylaxis VTE Prophylaxis Intervention: heparin Lines/Catheters IV C[facility]ter Type (from [facility]): Saline Lock Urinary Cath still in place: No Assessment/Plan Assessment/Plan 1. Chest pain. Serial troponin negative. Continue dual antiplatelet therapy. Pending 2D echocardiogram. 2. Peripheral vascular disease. The patient verbalized that he had peripheral stenting to his left lower extremity a few weeks ago at [facility]. Bilateral lower extremity arterial Doppler study negative for stenosis 3. Denies suicidal or homicidal 4. Deep venous thrombosis prophylaxis. Subcutaneous heparin. 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 states weak on legs, needs physical theraqpy and rehab Exam/Review of Systems Vital Signs Vitals Vital Signs Date Time Temp Pulse Resp B/P Pulse Ox O2 Delivery O2 Flow Rate FiO2 11/11/16 12:04 57 11/11/16 11:22 97.9 20 122/71 99 11/09/16 14:30 Nasal Cannula 2.0 Intake and Output 11/10/16 11/10/16 11/11/16 15:00 23:00 07:00 Intake Total 1580 ml 400 ml Output Total 900 ml 1000 ml Balance 680 ml -600 ml Exam Constitutional: alert, oriented, well developed Psych: nl mood/affect, no complaints Head: atraumatic, normocephalic Eyes: EOMI, PERRL, nl conjunctiva, nl lids ENMT: nl external ears & nose, nl lips & teeth, nl nasal mucosa & septum Neck: non-tender, supple Respiratory: clear to auscultation, normal air movement, No congested cough, No crackles/rales, No diminished breath sounds, No intercostal retraction, No labored breathing, No other, No respirations, No tactile fremitus, No wheezing Cardiovascular: nl pulses, regular rate and rhythm, No S3, No S4, No bruits, No diastolic murmur, No edema, No gallop, No irregular rhythm, No jugular venous distention (JVD), No murmurs/extra sounds, No other, No rub, No systolic murmur Gastrointestinal: nl liver, spleen, non-tender, soft, No ascites, No bowel sounds, No distended, No firm, No hepatomegaly, No mass , No other, No rebound or guarding, No splenomegaly, No surgical scars, No tender Musculoskeletal: nl extremities to inspection Extremities: normal pulses, No calf tenderness, No clubbing, No cyanosis, No edema, No other, No palpable cord, No pitting pedal edema, No tenderness 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: 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 DOUGH ROLLER II-XII intact, nl mental status, nl speech, nl strength Skin: nl turgor Lymph: nl lymph nodes Results Result Diagram: 11/11/16 0630 11/11/16 0630 Results 24 hrs Laboratory Tests Test 11/10/16 14:30 11/10/16 15:00 11/11/16 06:30 Urine Opiates Screen POSITIVE Urine Barbiturates NEGATIVE Urine Amphetamines Screen NEGATIVE Urine Benzodiazepines Screen NEGATIVE Urine Cocaine Screen NEGATIVE Urine Cannabinoids NEGATIVE Hemoglobin A1c 5.5 5.4 White Blood Count 8.7 Red Blood Count 4.85 Hemoglobin 13.9 L Hematocrit 41.5 L Mean Corpuscular Volume 85.6 Mean Corpuscular Hemoglobin 28.7 L Mean Corpuscular Hemoglobin Concent 33.5 Red Cell Distribution Width 12.6 Platelet Count 205 Mean Platelet Volume 10.1 Neutrophils % 60.8 Lymphocytes % 28.1 Monocytes % 7.1 Eosinophils % 3.1 Basophils % 0.7 Nucleated Red Blood Cells % 0.0 Neutrophils # 5.3 Lymphocytes # 2.5 Monocytes # 0.6 Eosinophils # 0.3 Basophils # 0.1 Nucleated Red Blood Cells # 0.0 Sodium Level 138 Potassium Level 3.9 Chloride Level 103 Carbon Dioxide Level 29 Anion Gap 10 Blood Urea Nitrogen 14 Creatinine 0.87 Glucose Level 79 Calcium Level 8.9 Phosphorus Level 2.9 Magnesium Level 2.0 Troponin I < 0.012 Medications Medications Current Medications Ondansetron HCl (Zofran Inj) 4 mg Q6H PRN IV NAUSEA AND/OR VOMITING; Start 11/09 at 05:30 Nitroglycerin (Nitroglycerin (Sl Tab) 0.4 Mg) 1 tab Q5M PRN SL CHEST PAIN Last administered on 11/09/16t 18:27; Admin Dose 1 TAB; Start 11/09/16 at 05:30 Acetaminophen (Tylenol Tab) 650 mg Q6H PRN PO PAIN LEVEL 1-3 OR FEVER; Start at 05:30 Famotidine (Pepcid) 20 mg Q12 PO Last administered on 11/11/16 08:14; Admin Dose 20 MG; Start 11/09/16 at 09:00 Atorvastatin Calcium (Lipitor) 40 mg QHS PO Last administered on 11/10/16 21:16 ; Admin Dose 40 MG; Start 11/09/16 at 21:00 Clopidogrel Bisulfate (plaVIX) 75 mg DAILY PO Last administered on 11/11/16 08: 13; Admin Dose 75 MG; Start 11/09/16 at 09:00 Gabapentin (Neurontin) 300 mg TID PO Last administered on 11/11/16 12:47; Admin Dose 300 MG; Start 11/09/16 at 09:00 Lisinopril (Zestril) 2.5 mg DAILY PO Last administered on 11/11/16 08:13; Admin Dose 2.5 MG; Start 11/09/16 at 09:00 Metoprolol Tartrate (Lopressor) 25 mg DAILY PO Last administered on 11/09/16 10 :11; Admin Dose 25 MG; Start 11/09/16 at 09:00 Heparin Sodium (Porcine) (Heparin (5000 Units/0.5 ml)) 5,000 unit Q8 SC Last administered on 11/11/16 12:47; Admin Dose 5,000 UNIT; Start 11/09/16 at 22:00 Morphine Sulfate (morphine) 2 mg Q4H PRN IV PAIN Last administered on 11/11/16 12:47; Admin Dose 2 MG; Start 11/09/16 at 19:00 Polyethylene Glycol (Miralax) 17 gm BID PO Last administered on 11/11/16 08:12 ; Admin Dose 17 GM; Start 11/10/16 at 21:00 Docusate Sodium (Colace) 200 mg BID PO Last administered on 11/11/16 08:13; Admin Dose 200 MG; Start 11/10/16 at 21:00 Bisacodyl (Dulcolax) 10 mg DAILY PRN PO CONSTIPATION; Start 11/10/16 at 14:30 Aspirin (Halfprin) 81 mg DAILY PO Last administered on 11/11/16 08:13; Admin Dose 81 MG; Start 11/11/16 at 09:00 REYES GENAO MD November 11, 2016 14:08
--- NOTE | 2016-11-11 17:26 | RADRPT ---
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 Physician: AZALEA RENEE Quality: Adequate Procedures: Transthoracic echocardiogram with complete 2D, M-Mode, and doppler examination. Indications: Evaluate Left Ventricular function. 2D/M Mode Doppler Measurement Value Normal Ranges Measurement Value Normal Ranges LVIDd 2D 4.6 3.5 - 5.6 cm AV Peak Duong 1.9 m/sec LVIDs 2D 2.6 2.1 - 4.1 cm AV Peak PG 14.0 mmHg LVPWd 2D 0.9 0.6 - 1.1 cm LVOT Peak Duong 0.9 m/sec IVSd 2D 1.0 0.6 - 1.1 cm LVOT Peak PG 3.4 mmHg AoR Diam 2D 2.6 2.0 - 3.7 cm MV E Peak Duong 0.9 m/sec EDV 2D 99.0 cm3 MV A Peak Duong 0.7 m/sec ESV 2D 17.9 cm3 MV E/A 1.4 LA Dimen 2D 3.1 2.3 - 4.0 cm MV Decel Time 143 msec MV Decel Latimer 6 MV E/A 1.4 TR Peak Duong 2.6 m/sec TR Peak PG 28.0 mmHg RVSP 31.0 mmHg Findings Left Ventricle: Normal left ventricular systolic function. Normal left ventricular cavity size. Normal left ventricular wall thickness. Ejection fraction is visually estimated at 65 %. Tissue Doppler/Mitral Doppler indices are within normal limits. Right Ventricle: Normal right ventricular size. Normal right ventricular systolic function. Left Atrium: The left atrium is normal in size. Right Atrium: The right atrium is normal in size. Mitral Valve: Normal appearance and function of the mitral valve with trace physiologic regurgitation. Aortic Valve: Normal appearance of the aortic valve. No significant aortic stenosis or insufficiency. Tricuspid Valve: Normal appearance and function of the tricuspid valve with trace physiologic regurgitation. Estimated peak PA systolic pressure 31 mmHg. Pulmonic Valve: Pulmonic valve not well visualized. Pericardium: Normal pericardium with no significant pericardial effusion. Aorta: Normal aortic root. IVC: Normal size and normal respiratory collapse consistent with normal right atrial pressure. Conclusions 1.Normal left ventricular systolic function. Normal left ventricular cavity size. Normal left ventricular wall thickness. Ejection fraction is visually estimated at 65 %. Tissue Doppler/Mitral Doppler indices are within normal limits. 2.Normal right ventricular size. Normal right ventricular systolic function. 3.The left atrium is normal in size. 4.The right atrium is normal in size. 5.No significant valvular stenosis or regurgitation seen. 6.Normal pericardium with no significant pericardial effusion. Electronically Signed By: Augusto Mattson 11-Nov-2016 17:26:14 -0700 Patient Name: BEAU BENJAMIN Study Date: 11-Nov-2016 [id number]
[2016-11-11] MEDS: ATORVASTATIN 40 MG TAB PO SCH (20:48)
--- NOTE | 2016-11-11 22:42 | PN ---
Date/Time of Note Date/Time of Note DATE: 11/11/16 TIME: 22:42 Assessment/Plan Lines/Catheters IV Catheter Type (from [facility]): Peripheral IV Fisher in Place (from [facility]): No Assessment/Plan Chief Complaint/Hosp Course -Bilateral lower extremity atherosclerosis with short-distance disabling claudication: Seems the patient has peripheral arterial disease with being an active smoker. I have encouraged the patient for smoking cessation and educated him. However, the noninvasive vascular studies do not correlate with his infrainguinal findings and symptoms he mentions. At this time would recommend no further vascular intervention. can consider CT angiography of the LE to evaluate further. -Will plan to educate the patient more in terms of his overall medical health and also have the patient on antiplatelets, aspirin and Plavix. -Optimize vascular status (BP meds, cholesterol, weight loss, antiplatelets, sugar control) -Discussed findings, plan and management with the patient, and he understands. -Thank you for allowing us to partake in the care of your patient. Please call with any questions. Problems: Subjective 24 Hr Interval Summary no new vascular events overnight Exam/Review of Systems Vital Signs Vitals Vital Signs Date Time Temp Pulse Resp B/P Pulse Ox O2 Delivery O2 Flow Rate FiO2 11/14/16 20:51 98.1 67 20 123/61 99 11/14/16 06:30 Room Air Intake and Output 11/13/16 11/13/16 11/14/16 15:00 23:00 07:00 Intake Total 1040 ml 720 ml Balance 1040 ml 720 ml Exam Free Text/Dictation GENERAL: Alert, oriented x3. PULMONARY: Clear to auscultation bilaterally. CARDIOVASCULAR: S1, S2 present. ABDOMEN: Soft, nontender, nondistended. Bowel sounds positive. RIGHT LOWER EXTREMITY: Palpable femoral pulse, nonpalpable pedal pulse. Motor , sensory intact. Capillary refill 3 to 4 seconds and dependent rubor. The patient had a previous injury to the right foot where there is a previous surgical scar on the plantar aspect of the forefoot. LEFT LOWER EXTREMITY: Palpable femoral pulse, nonpalpable pedal pulse. Motor, sensory intact. Capillary refill 2 to 3 seconds. Results Result Diagram: 11/11/1630 11/11/16629 KAYLA JARAMILLO MD November 11, 2016 22:42
[2016-11-12] VITALS (11 sets, daily range): BP systolic 102–129; BP diastolic 64–76; PULSE 50–67; RESP 15–20
[2016-11-12] MEDS: morphine 2 MG INJ IV PRN ×3 (01:01→22:29)
[2016-11-12] MEDS: HEPARIN 5,000 UNIT/0.5 ML VIAL SC SCH ×3 (05:40→21:13)
[2016-11-12] MEDS: METOPROLOL 25 MG TAB PO SCH (09:00)
[2016-11-12] MEDS: LISINOPRIL 5 MG TAB PO SCH (09:00)
[2016-11-12] MEDS: DOCUSATE SODIUM 100 MG CAP PO SCH ×2 (09:07→21:11)
[2016-11-12] MEDS: POLYETHYLENE GLYCOL 17 GM PACKET PO SCH ×2 (09:07→21:11)
[2016-11-12] MEDS: FAMOTIDINE 20 MG TAB PO SCH ×2 (09:07→21:11)
[2016-11-12] MEDS: CLOPIDOGREL 75 MG TAB PO SCH (09:07)
[2016-11-12] MEDS: GABAPENTIN 300 MG CAP PO SCH ×3 (09:07→21:11)
[2016-11-12] MEDS: ASPIRIN (EC) 81 MG TAB PO SCH (09:08)
--- NOTE | 2016-11-12 13:44 | PN ---
Date/Time of Note Date/Time of Note DATE: 11/12/16 TIME: 13:42 Assessment/Plan VTE Prophylaxis VTE Prophylaxis Intervention: heparin Lines/Catheters IV Catheter Type (from [facility]): Saline Lock Urinary Cath still in place: No Assessment/Plan Assessment/Plan 1. Chest pain. Serial troponin negative. Continue dual antiplatelet therapy. Pending 2D echocardiogram. 2. Peripheral vascular disease. The patient verbalized that he had peripheral stenting to his left lower extremity a few weeks ago at [facility]. Bilateral lower extremity arterial Doppler study negative for stenosis 3. Denies suicidal or homicidal 4. Deep venous thrombosis prophylaxis. Subcutaneous heparin. 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 Sinus bradycardia, stop metoprolol Subjective 24 Hr Interval Summary Free Text/Dictation no new conplaint. awaiting for placement Exam/Review of Systems Vital Signs Vitals Vital Signs Date Time Temp Pulse Resp B/P Pulse Ox O2 Delivery O2 Flow Rate FiO2 11/12/16 12:36 60 11/12/16 07:33 98.3 20 129/64 95 11/09/16 14:30 Nasal Cannula 2.0 Intake and Output 11/11/16 11/11/16 11/12/16 15:00 23:00 07:00 Intake Total 820 ml Output Total 1450 ml 700 ml Balance -630 ml -700 ml Exam Constitutional: alert, oriented, well developed Psych: nl mood/affect, no complaints Head: atraumatic, normocephalic Eyes: EOMI, PERRL, nl conjunctiva, nl lids ENMT: nl external ears & nose, nl lips & teeth, nl nasal mucosa & septum Neck: non-tender, supple Respiratory: clear to auscultation, normal air movement, No congested cough, No crackles/rales, No diminished breath sounds, No intercostal retraction, No labored breathing, No other, No respirations, No tactile fremitus, No wheezing Cardiovascular: nl pulses, regular rate and rhythm, No S3, No S4, No bruits, No diastolic murmur, No edema, No gallop, No irregular rhythm, No jugular venous distention (JVD), No murmurs/extra sounds, No other, No rub, No systolic murmur Gastrointestinal: nl liver, spleen, non-tender, soft, No ascites, No bowel sounds, No distended, No firm, No hepatomegaly, No mass , No other, No rebound or guarding, No splenomegaly, No surgical scars, No tender Musculoskeletal: nl extremities to inspection Extremities: normal pulses, No calf tenderness, No clubbing, No cyanosis, No edema, No other, No palpable cord, No pitting pedal edema, No tenderness 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: CARBURETOR REBUILDER II-XII intact, nl mental status, nl speech, nl strength Skin: nl turgor Lymph: nl lymph nodes Results Result Diagram: 11/11/1662911/11/16 06 Medications Medications Current Medications Ondansetron HCl (Zofran Inj) 4 mg Q6H PRN IV NAUSEA AND/OR VOMITING; Start 11/09 at 05:30 Nitroglycerin (Nitroglycerin (Sl Tab) 0.4 Mg) 1 tab Q5M PRN SL CHEST PAIN Last administered on 11/09/16 18:27; Admin Dose 1 TAB; Start 11/09/16 at 05:30 Acetaminophen (Tylenol Tab) 650 mg Q6H PRN PO PAIN LEVEL 1-3 OR FEVER; Start at 05:30 Famotidine (Pepcid) 20 mg Q12 PO Last administered on 11/12/16 09:07; Admin Dose 20 MG; Start 11/09/16 at 09:00 Atorvastatin Calcium (Lipitor) 40 mg QHS PO Last administered on 11/11/16 20:48 ; Admin Dose 40 MG; Start 11/09/16 at 21:00 Clopidogrel Bisulfate (plaVIX) 75 mg DAILY PO Last administered on 11/12/16 09: 07; Admin Dose 75 MG; Start 11/09/16 at 09:00 Gabapentin (Neurontin) 300 mg TID PO Last administered on 11/12/16 09:07; Admin Dose 300 MG; Start 11/09/16 at 09:00 Lisinopril (Zestril) 2.5 mg DAILY PO Last administered on 11/11/16 08:13; Admin Dose 2.5 MG; Start 11/09/16 at 09:00 Metoprolol Tartrate (Lopressor) 25 mg DAILY PO Last administered on 11/09/16 10 :11; Admin Dose 25 MG; Start 11/09/16 at 09:00 Heparin Sodium (Porcine) (Heparin (5000 Units/0.5 ml)) 5,000 unit Q8 SC Last administered on 11/12/16 05:40; Admin Dose 5,000 UNIT; Start 11/09/16 at 22:00 Morphine Sulfate (morphine) 2 mg Q4H PRN IV PAIN Last administered on 11/12/16 04:27; Admin Dose 2 MG; Start 11/09/16 at 19:00 Polyethylene Glycol (Miralax) 17 gm BID PO Last administered on 11/12/16 09:07 ; Admin Dose 17 GM; Start 11/10/16 at 21:00 Docusate Sodium (Colace) 200 mg BID PO Last administered on 11/12/16 09:07; Admin Dose 200 MG; Start 11/10/16 at 21:00 Bisacodyl (Dulcolax) 10 mg DAILY PRN PO CONSTIPATION; Start 11/10/16 at 14:30 Aspirin (Halfprin) 81 mg DAILY PO Last administered on 11/12/16 09:08; Admin Dose 81 MG; Start 11/11/16 at 09:00 REYES GENAO MD November 12, 2016 13:44
[2016-11-12] MEDS: HYDROCODONE/APAP (5/325) TAB PO PRN (14:35)
[2016-11-12] MEDS: ATORVASTATIN 40 MG TAB PO SCH (21:11)
[2016-11-13] MEDS: HYDROCODONE/APAP (5/325) TAB PO PRN ×4 (01:28→23:09)
[2016-11-13 02:20] VITALS: BP 115/65; RESP 20
[2016-11-13] MEDS: morphine 2 MG INJ IV PRN ×6 (02:37→22:09)
[2016-11-13] MEDS: HEPARIN 5,000 UNIT/0.5 ML VIAL SC SCH ×3 (05:34→21:03)
[2016-11-13 07:39] VITALS: BP 112/55; RESP 20
[2016-11-13] MEDS: POLYETHYLENE GLYCOL 17 GM PACKET PO SCH ×2 (08:24→20:55)
[2016-11-13] MEDS: LISINOPRIL 5 MG TAB PO SCH (08:24)
[2016-11-13] MEDS: DOCUSATE SODIUM 100 MG CAP PO SCH ×2 (08:24→20:55)
[2016-11-13] MEDS: CLOPIDOGREL 75 MG TAB PO SCH (08:24)
[2016-11-13] MEDS: FAMOTIDINE 20 MG TAB PO SCH ×2 (08:24→20:55)
[2016-11-13] MEDS: GABAPENTIN 300 MG CAP PO SCH ×3 (08:24→20:55)
[2016-11-13] MEDS: ASPIRIN (EC) 81 MG TAB PO SCH (08:24)
--- NOTE | 2016-11-13 09:02 | PN ---
Date/Time of Note Date/Time of Note DATE: 11/13/16 TIME: 08:59 Assessment/Plan VTE Prophylaxis VTE Prophylaxis Intervention: heparin Lines/Catheters IV [facility] Saline Lock Urinary Cath still in place: No Assessment/Plan Problems: (1) Onychomycosis Status: Chronic Comment: Terbinafine and pulse therapy and podiatry consult with Dr. Lennon from the [facility] this should not hold up his transfer to a rehab center (2) Constipation Status: Chronic Comment: Likely drug-induced constipation. The patient reports he has not had a GI consult although I find the veracity of his answers to my question to be dubious. He can have an outpatient evaluation for this should not delay his discharge Qualifiers: Constipation type: drug induced constipation Qualified Code: K59.03 - Drug -induced constipation (3) Personality disorder in adult Status: Chronic Comment: Patient is a quite bright but extremely manipulative with a little insight. He may very well meet the diagnostic criteria the DSM 5 for sociopathy versus borderline personality (4) Hyperlipidemia Status: Chronic Comment: On statin treatment Qualifiers: Hyperlipidemia type: pure hypercholesterolemia Qualified Code: E78.00 - Pure hypercholesterolemia (5) Tobacco abuse disorder Status: Chronic Comment: He has nicotine patches. He absolutely declines any concept of the idea of quitting (6) Peripheral vascular disease with claudication Status: Chronic Comment: He is stable at this time we will try cilostazol to see if it will help him (7) Chest pain Status: Resolved Comment: This is chest wall pain not cardiac Qualifiers: Chest pain type: chest pain due to myocardial ischemia Ischemic chest pain type: unspecified angina pectoris type Qualified Code: I20.9 - Chest pain due to myocardial ischemia, unspecified ischemic chest pain type Subjective 24 Hr Interval Summary Free Text/Dictation Fully awake and alert male with many questions Constitutional: no complaints (Denies fevers chills or sweats) Respiratory: no complaints Cardiovascular: chest pain (Atypical chest pain in a linear fashion on the left -hand side down the internal side of the left arm) Gastrointestinal: constipation Genitourinary: no complaints Exam/Review of Systems Vital Signs Vitals Vital Signs Date Time Temp Pulse Resp B/P Pulse Ox O2 Delivery O2 Flow Rate FiO2 11/13/16 07:39 97.6 53 20 112/55 98 11/12/16 22:00 Room Air 11/09/16 14:30 2.0 Intake and Output 11/12/16 11/12/16 11/13/16 15:00 23:00 07:00 Intake Total 850 ml 480 ml Output Total 1250 ml Balance -400 ml 480 ml Exam Constitutional: alert, oriented Neck: non-tender, supple Respiratory: clear to auscultation, normal air movement Cardiovascular: nl pulses, other (Reproducible chest wall pain), regular rate and rhythm Gastrointestinal: bowel sounds (Active bowel sounds), nl liver, spleen, non- tender, soft Extremities: other (Decreased pulses significant onychomycosis) Results Result Diagram: 11/11/16 0630 11/11/16 0630 Medications Medications Current Medications Ondansetron HCl (Zofran Inj) 4 mg Q6H PRN IV NAUSEA AND/OR VOMITING; Start 11/09 at 05:30 Nitroglycerin (Nitroglycerin (Sl Tab) 0.4 Mg) 1 tab Q5M PRN SL CHEST PAIN Last administered on 11/09/16 18:27; Admin Dose 1 TAB; Start 11/09/16 at 05:30 Acetaminophen (Tylenol Tab) 650 mg Q6H PRN PO PAIN LEVEL 1-3 OR FEVER; Start at 05:30 Famotidine (Pepcid) 20 mg Q12 PO Last administered on 11/13/16 08:24; Admin Dose 20 MG; Start 11/09/16 at 09:00 Atorvastatin Calcium (Lipitor) 40 mg QHS PO Last administered on 11/12/16 21:11 ; Admin Dose 40 MG; Start 11/09/16 at 21:00 Clopidogrel Bisulfate (plaVIX) 75 mg DAILY PO Last administered on 11/13/16 08: 24; Admin Dose 75 MG; Start 11/09/16 at 09:00 Gabapentin (Neurontin) 300 mg TID PO Last administered on 11/13/16 08:24; Admin Dose 300 MG; Start 11/09/16 at 09:00 Lisinopril (Zestril) 2.5 mg DAILY PO Last administered on 11/13/16 08:24; Admin Dose 2.5 MG; Start 11/09/16 at 09:00 Heparin Sodium (Porcine) (Heparin (5000 Units/0.5 ml)) 5,000 unit Q8 SC Last administered on 11/13/16 05:34; Admin Dose 5,000 UNIT; Start 11/09/16 at 22:00 Morphine Sulfate (morphine) 2 mg Q4H PRN IV PAIN Last administered on 11/13/16 06:38; Admin Dose 2 MG; Start 11/09/16 at 19:00 Polyethylene Glycol (Miralax) 17 gm BID PO Last administered on 11/13/16 08:24 ; Admin Dose 17 GM; Start 11/10/16 at 21:00 Docusate Sodium (Colace) 200 mg BID PO Last administered on 11/13/16 08:24; Admin Dose 200 MG; Start 11/10/16 at 21:00 Bisacodyl (Dulcolax) 10 mg DAILY PRN PO CONSTIPATION; Start 11/10/16 at 14:30 Aspirin (Halfprin) 81 mg DAILY PO Last administered on 11/13/16 08:24; Admin Dose 81 MG; Start 11/11/16 at 09:00 Acetaminophen/ Hydrocodone Bitart ([place] (5/325)) 1 tab Q6H PRN PO PAIN LEVEL 4 -7 Last administered on 11/13/16 08:25; Admin Dose 1 TAB; Start 11/12/16 at 14:30 NINFA WEST MD November 13, 2016 09:02
[2016-11-13] MEDS: TERBINAFINE 250 MG TAB PO SCH ×2 (10:16→20:54)
[2016-11-13] MEDS: CILOSTAZOL 100 MG TAB PO SCH ×2 (10:16→20:54)
[2016-11-13 10:18] VITALS: BP 114/67; PULSE 57
--- NOTE | 2016-11-13 13:11 | CONS ---
Date/Time of Note Date/Time of Note DATE: 11/13/16 TIME: 13:05 Assessment/Plan Assessment/Plan Problems: (1) Peripheral neuropathy (2) Peripheral vascular disease with claudication Status: Chronic (3) Tobacco abuse disorder Status: Chronic (4) Onychomycosis Status: Chronic Additional Assessment/Plan Foot care and foot hygiene was discussed in great detail. Patient will require debridement of nails. Instrumentation will be brought in for debridement. Thank you very much for involving me in the care of this patient. Patient will be followed in-house. Consultation Date/Type/Reason Admit Date/Time 11/09/2016 Date of Consultation: November 13, 2016 Type of Consultation: Foot and ankle surgery Reason for Consultation Evaluation for "severe foot pain in both feet". Hx of Present Illness Thank you very much for involving me in the care of this patient. As you very well know this is a 60-year-old male patient who was admitted on November 09, 2016 for chest pain and slurred speech. Patient states that he has "severe foot pain " in both feet. He says that "in the 80s I had an accident while he was playing with [employer] and I got blown up about 30 feet causing severe damage to both of my feet". Patient says that every time he is walking and stepping down, "I am breaking my right fifth metatarsal bone". Patient says that he has never had any treatment for his feet and this is the first time the doctors looking at his feet. Patient reports 10 out of 10 pain in both feet and points to the entire foot. Past medical history significant for peripheral vascular disease, history of [place], COPD, polyneuropathy. Patient has family history of diabetes and hypertension. Constitutional: no complaints (Denies fevers chills or sweats) Respiratory: no complaints Cardiovascular: chest pain (Atypical chest pain in a linear fashion on the left -hand side down the internal side of the left arm) Gastrointestinal: constipation, no complaints Genitourinary: no complaints Psychological: nl mood/affect, no complaints Past Medical History As per history of present illness. Past Surgical History As per history of present illness. Social History As per history of present illness. Alcohol Use: none Smoking Status: Current some day smoker Drug Use: none Exam/Review of Systems Vital Signs Vitals Vital Signs Date Time Temp Pulse Resp B/P Pulse Ox O2 Delivery O2 Flow Rate FiO2 5/6/17 10:18 57 114/67 11/13/16 07:39 97.6 20 98 11/12/16 22:00 Room Air 11/09/16 14:30 2.0 Intake and Output 11/12/16 11/12/16 11/13/16 15:00 23:00 07:00 Intake Total 850 ml 480 ml Output Total 1250 ml Balance -400 ml 480 ml Exam GENERAL APPEARANCE: Patient is in no acute distress laying supine in bed VASCULAR EXAM: Dorsalis pedis and posterior tibial pulse weakly palpable bilateral. Delayed capillary filling time noted on exam. Normal temperature gradient noted on exam. There is no edema in the lower extremity. No varicose veins noted on examination NEUROLOGICAL EXAM: Protective sensation is diminished to sharp, dull, vibratory and temperature stimuli bilaterally. Normal deep tendon reflexes noted. Negative Tinel sign on examination of bilateral lower extremity DERMATOLOGICAL EXAM: Patient has severely dry skin on the bottom of both feet with cracking at the heels. There is multiple areas of dirt. No active open wound noted. There is no erythema and no drainage of pus or blood MUSCULOSKELETAL EXAM: Patient reports tenderness as I examine both feet. There is no specific point of tenderness. There is contracted toes on both feet with limited range of motion of the ankle joints and the first metatarsophalangeal joints. There is no crepitus on range of motion. IMAGING: Reviewed in chart LABS: Reviewed in chart Results Result Diagram: 11/11/16 0630 11/11/16 0630 Results 24 hrs Laboratory Tests Test 11/13/16 10:05 Hepatitis B Surface Antigen NEGATIVE Hepatitis C Antibody REACTIVE H Medications Medications Current Medications Ondansetron HCl (Zofran Inj) 4 mg Q6H PRN IV NAUSEA AND/OR VOMITING; Start 11/09 at 05:30 Nitroglycerin (Nitroglycerin (Sl Tab) 0.4 Mg) 1 tab Q5M PRN SL CHEST PAIN Last administered on 11/09/16 18:27; Admin Dose 1 TAB; Start 11/09/16 at 05:30 Acetaminophen (Tylenol Tab) 650 mg Q6H PRN PO PAIN LEVEL 1-3 OR FEVER; Start at 05:30 Famotidine (Pepcid) 20 mg Q12 PO Last administered on 11/13/16 08:24; Admin Dose 20 MG; Start 11/09/16 at 09:00 Atorvastatin Calcium (Lipitor) 40 mg QHS PO Last administered on 11/12/16 21:11 ; Admin Dose 40 MG; Start 11/09/16 at 21:00 Clopidogrel Bisulfate (plaVIX) 75 mg DAILY PO Last administered on 11/13/16 08: 24; Admin Dose 75 MG; Start 11/09/16 at 09:00 Gabapentin (Neurontin) 300 mg TID PO Last administered on 11/13/16 08:24; Admin Dose 300 MG; Start 11/09/16 at 09:00 Lisinopril (Zestril) 2.5 mg DAILY PO Last administered on 11/13/16 08:24; Admin Dose 2.5 MG; Start 11/09/16 at 09:00 Heparin Sodium (Porcine) (Heparin (5000 Units/0.5 ml)) 5,000 unit Q8 SC Last administered on 11/13/16 05:34; Admin Dose 5,000 UNIT; Start 11/09/16 at 22:00 Morphine Sulfate (morphine) 2 mg Q4H PRN IV PAIN Last administered on 11/13/16 10:17; Admin Dose 2 MG; Start 11/09/16 at 19:00 Polyethylene Glycol (Miralax) 17 gm BID PO Last administered on 11/13/16 08:24 ; Admin Dose 17 GM; Start 11/10/16 at 21:00 Docusate Sodium (Colace) 200 mg BID PO Last administered on 11/13/16 08:24; Admin Dose 200 MG; Start 11/10/16 at 21:00 Bisacodyl (Dulcolax) 10 mg DAILY PRN PO CONSTIPATION; Start 11/10/16 at 14:30 Aspirin (Halfprin) 81 mg DAILY PO Last administered on 11/13/16 08:24; Admin Dose 81 MG; Start 11/11/16 at 09:00 Acetaminophen/ Hydrocodone Bitart ([place] (5/325)) 1 tab Q6H PRN PO PAIN LEVEL 4 -7 Last administered on 11/13/16 08:25; Admin Dose 1 TAB; Start 11/12/16 at 14:30 Cilostazol (Pletal) 100 mg BID PO Last administered on 11/13/16 10:16; Admin Dose 100 MG; Start 11/13/16 at 10:00 Terbinafine HCl (Lamisil) 250 mg BID PO Last administered on 11/13/16t 10:16; Admin Dose 250 MG; Start 11/13/16 at 10:00; Stop 11/20/16 at 09:59 ISABELLA TAPIA DPM November 13, 2016 13:11
[2016-11-13 14:41] VITALS: BP 116/65; PULSE 61
--- NOTE | 2016-11-13 19:13 | RADRPT ---
PROCEDURE: XR Right Ankle. CLINICAL INDICATION: Right ankle pain. TECHNIQUE: 3 views. Frontal, lateral, and oblique. COMPARISON: None. FINDINGS: There is no fracture or dislocation. The soft tissues are normal. Articular surfaces are intact. There is no lytic or blastic lesion. There is no radiopaque foreign body. IMPRESSION: 1. Normal images of the right ankle. RPTAT: QQ .Diogenes Wooten MD, MD Date Time Electronically viewed and signed by .Diogenes Wooten MD, on 11/13/2016 19:13 .R/
--- NOTE | 2016-11-13 19:14 | RADRPT ---
PROCEDURE: XR Left Ankle. CLINICAL INDICATION: Left ankle pain. TECHNIQUE: 3 views. Frontal, lateral, and oblique. COMPARISON: None. FINDINGS: There is no fracture or dislocation. The soft tissues are normal. The articular surfaces are intact. There is a small plantar calcaneal spur. There is no lytic or blastic lesion. There is a metal foreign body in the soft tissues anterior to the distal shaft of the tibia measurin g 1.1 x 0.7 cm. There is no other radiopaque foreign body. IMPRESSION: 1. Small plantar calcaneal spur. 2. Metal foreign body in the soft tissues anterior to the distal shaft of the tibia. 3. Otherwise normal images of the left ankle. RPTAT: QQ .Diogenes Wooten MD, Date Time Electronically viewed and signed by .Diogenes Wooten MD, on 11/13/2016 19:14 .R/
--- NOTE | 2016-11-13 19:16 | RADRPT ---
PROCEDURE: XR Right Foot. CLINICAL INDICATION: Right foot pain. TECHNIQUE: Three views. Frontal, lateral, and oblique. COMPARISON: None. FINDINGS: There is an old healed fracture of the midshaft of the third metatarsal with satisfactory alignment. There is chronic deformity of the distal fifth metatarsal neck which may also be due to fracture. There is no acute fracture. The articular surfaces are otherwise intact. There is no lytic or blastic lesion. There is no radiopaque foreign body. IMPRESSION: 1. Old healed fracture of the midshaft of the third metatarsal. 2. Chronic deformity of the distal fifth metatarsal neck which may be due to fracture. 3. Otherwise unremarkable images of the right foot. RPTAT: QQ .Diogenes Wooten MD, MD Date Time Electronically viewed and signed by .Diogenes Wooten MD, on 11/13/2016 19:16 .R/
--- NOTE | 2016-11-13 19:18 | RADRPT ---
PROCEDURE: XR Left Foot. CLINICAL INDICATION: Left foot pain. TECHNIQUE: Three views. Frontal, lateral, and oblique. COMPARISON: None. FINDINGS: There is no fracture or dislocation. The soft tissues are normal. There is hammertoe deformity of the fifth toe. The articular surfaces are otherwise intact. There is a plantar calcaneal spur. There is no lytic or blastic lesion. There is a metal foreign body in the soft tissues anterior to the distal tibia shaft. IMPRESSION: 1. Hammertoe deformity of the fifth toe. 2. Plantar calcaneal spur. 3. Foreign body in the soft tissues anterior to the distal tibia shaft. RPTAT: QQ .Diogenes Wooten MD, Date Time Electronically viewed and signed by .Diogenes Wooten MD, on 11/13/2016 19:17 .R/
[2016-11-13] MEDS: ATORVASTATIN 40 MG TAB PO SCH (20:54)
[2016-11-13 21:53] VITALS: BP 123/67; RESP 18
[2016-11-14] MEDS: morphine 2 MG INJ IV PRN ×6 (02:15→22:54)
[2016-11-14 02:20] VITALS: BP 121/63; PULSE 66
[2016-11-14] MEDS: HYDROCODONE/APAP (5/325) TAB PO PRN ×3 (05:31→17:13)
[2016-11-14] MEDS: HEPARIN 5,000 UNIT/0.5 ML VIAL SC SCH ×3 (05:33→22:22)
[2016-11-14 06:30] VITALS: BP 119/63; PULSE 61
[2016-11-14 08:13] VITALS: BP 114/65; RESP 19
[2016-11-14] MEDS: CILOSTAZOL 100 MG TAB PO SCH ×2 (08:26→20:41)
[2016-11-14] MEDS: DOCUSATE SODIUM 100 MG CAP PO SCH ×2 (08:26→20:41)
[2016-11-14] MEDS: TERBINAFINE 250 MG TAB PO SCH (08:26)
[2016-11-14] MEDS: CLOPIDOGREL 75 MG TAB PO SCH (08:26)
[2016-11-14] MEDS: GABAPENTIN 300 MG CAP PO SCH ×3 (08:26→20:41)
[2016-11-14] MEDS: POLYETHYLENE GLYCOL 17 GM PACKET PO SCH ×2 (08:27→20:41)
[2016-11-14] MEDS: LISINOPRIL 5 MG TAB PO SCH (08:27)
[2016-11-14] MEDS: ASPIRIN (EC) 81 MG TAB PO SCH (08:27)
[2016-11-14] MEDS: FAMOTIDINE 20 MG TAB PO SCH ×2 (08:27→20:41)
--- NOTE | 2016-11-14 12:36 | PN ---
Date/Time of Note Date/Time of Note DATE: 11/14/16 TIME: 12:33 Assessment/Plan VTE Prophylaxis VTE Prophylaxis Intervention: heparin Lines/Catheters IV Catheter Type (from [facility]): Saline Lock Urinary Cath still in place: No Assessment/Plan Problems: (1) Chest pain Status: Resolved Comment: This is noncardiac chest pain. He does not need any further stay in the hospital for this. Please note he is getting secondary gain of having a place to stay by being here. He is ready for ECF Qualifiers: Chest pain type: chest pain due to myocardial ischemia Ischemic chest pain type: unspecified angina pectoris type Qualified Code: I20.9 - Chest pain due to myocardial ischemia, unspecified ischemic chest pain type (2) Peripheral vascular disease with claudication Status: Chronic Comment: The true degree of his infirmity is somewhat tricky to pick out. He again is working for secondary gain. Regardless we know that he has peripheral vascular disease. We will try and optimize his regimen as best as possible given what we already know. (3) Tobacco abuse disorder Status: Chronic Comment: Re-counseled (4) Hyperlipidemia Status: Chronic Comment: He is on full dose statin therapy Qualifiers: Hyperlipidemia type: pure hypercholesterolemia Qualified Code: E78.00 - Pure hypercholesterolemia (5) Personality disorder in adult Status: Chronic Comment: Patient again is magnifying his symptomatology. He has interest in trying to reopen the case for disability due to an old injury in his feet as well as others. At this time there is no indication for continued acute care hospitalization (6) Onychomycosis Status: Chronic Comment: He has been seen by podiatry. He is on terbinafine and should have his nails worked on (7) Hepatitis C antibody positive in blood Status: Acute Comment: He does without knowledge of this. He will be on blood and body fluid precautions Subjective 24 Hr Interval Summary Free Text/Dictation Patient answers questions in directly. Constitutional: no complaints Respiratory: no complaints Cardiovascular: chest pain Gastrointestinal: no complaints Genitourinary: no complaints Musculoskeletal: other (Complains of feet pain) Exam/Review of Systems Vital Signs Vitals Vital Signs Date Time Temp Pulse Resp B/P Pulse Ox O2 Delivery O2 Flow Rate FiO2 11/14/16 08:13 97.6 56 19 114/65 96 11/14/16 06:30 Room Air Intake and Output 11/13/16 11/13/16 11/14/16 15:00 23:00 07:00 Intake Total 1040 ml 720 ml Balance 1040 ml 720 ml Exam Constitutional: alert, oriented Neck: non-tender, supple Respiratory: clear to auscultation, normal air movement Cardiovascular: nl pulses, regular rate and rhythm Results Result Diagram: 11/11/16 0630 11/11/16 0630 Medications Medications Current Medications Ondansetron HCl (Zofran Inj) 4 mg Q6H PRN IV NAUSEA AND/OR VOMITING; Start 11/09 at 05:30 Nitroglycerin (Nitroglycerin (Sl Tab) 0.4 Mg) 1 tab Q5M PRN SL CHEST PAIN Last administered on 11/09/16 18:27; Admin Dose 1 TAB; Start 11/09/16 at 05:30 Acetaminophen (Tylenol Tab) 650 mg Q6H PRN PO PAIN LEVEL 1-3 OR FEVER; Start at 05:30 Famotidine (Pepcid) 20 mg Q12 PO Last administered on 11/14/16 08:27; Admin Dose 20 MG; Start 11/09/16 at 09:00 Atorvastatin Calcium (Lipitor) 40 mg QHS PO Last administered on 11/13/16 20:54 ; Admin Dose 40 MG; Start 11/09/16 at 21:00 Clopidogrel Bisulfate (plaVIX) 75 mg DAILY PO Last administered on 11/14/16 08: 26; Admin Dose 75 MG; Start 11/09/16 at 09:00 Gabapentin (Neurontin) 300 mg TID PO Last administered on 11/14/16 08:26; Admin Dose 300 MG; Start 11/09/16 at 09:00 Lisinopril (Zestril) 2.5 mg DAILY PO Last administered on 11/14/16 08:27; Admin Dose 2.5 MG; Start 11/09/16 at 09:00 Heparin Sodium (Porcine) (Heparin (5000 Units/0.5 ml)) 5,000 unit Q8 SC Last administered on 11/14/16 05:33; Admin Dose 5,000 UNIT; Start 11/09/16 at 22:00 Morphine Sulfate (morphine) 2 mg Q4H PRN IV PAIN Last administered on 11/14/16 10:20; Admin Dose 2 MG; Start 11/09/16 at 19:00 Polyethylene Glycol (Miralax) 17 gm BID PO Last administered on 11/14/16 08:27 ; Admin Dose 17 GM; Start 11/10/16 at 21:00 Docusate Sodium (Colace) 200 mg BID PO Last administered on 11/14/16 08:26; Admin Dose 200 MG; Start 11/10/16 at 21:00 Bisacodyl (Dulcolax) 10 mg DAILY PRN PO CONSTIPATION Last administered on 20:59; Admin Dose 10 MG; Start 11/10/16 at 14:30 Aspirin (Halfprin) 81 mg DAILY PO Last administered on 11/14/16 08:27; Admin Dose 81 MG; Start 11/11/16 at 09:00 Acetaminophen/ Hydrocodone Bitart ([place] (5/325)) 1 tab Q6H PRN PO PAIN LEVEL 4 -7 Last administered on 11/14/16 11:40; Admin Dose 1 TAB; Start 11/12/16 at 14:30 Cilostazol (Pletal) 100 mg BID PO Last administered on 11/14/16 08:26; Admin Dose 100 MG; Start 11/13/16 at 10:00 Terbinafine HCl (Lamisil) 250 mg BID PO Last administered on 11/14/16 08:26; Admin Dose 250 MG; Start 11/13/16 at 10:00; Stop 11/20/16 at 09:59 NINFA WEST MD November 14, 2016 12:36
[2016-11-14] MEDS: ATORVASTATIN 40 MG TAB PO SCH (20:41)
[2016-11-14 20:51] VITALS: BP 123/61; RESP 20
--- NOTE | 2016-11-14 22:13 | PN ---
Date/Time of Note Date/Time of Note DATE: 11/14/16 TIME: 22:12 Assessment/Plan Lines/Catheters IV Catheter Type (from [facility]): Saline Lock [facility] in Place (from [facility]): No Assessment/Plan Chief Complaint/Hosp Course -Bilateral lower extremity atherosclerosis with short-distance disabling claudication: Seems the patient has peripheral arterial disease with being an active smoker. I have encouraged the patient for smoking cessation and educated him. However, the noninvasive vascular studies do not correlate with his infrainguinal findings and symptoms he mentions. At this time would recommend no further vascular intervention. can consider CT angiography of the LE to evaluate further. -Will plan to educate the patient more in terms of his overall medical health and also have the patient on antiplatelets, aspirin and Plavix. -Optimize vascular status (BP meds, cholesterol, weight loss, antiplatelets, sugar control) -Discussed findings, plan and management with the patient, and he understands. -Thank you for allowing us to partake in the care of your patient. Please call with any questions. Problems: Subjective 24 Hr Interval Summary no new vascular events overnight Exam/Review of Systems Vital Signs Vitals Vital Signs Date Time Temp Pulse Resp B/P Pulse Ox O2 Delivery O2 Flow Rate FiO2 11/14/16 20:51 98.1 67 20 123/61 99 11/14/16 06:30 Room Air Intake and Output 11/13/16 11/13/16 11/14/16 15:00 23:00 07:00 Intake Total 1040 ml 720 ml Balance 1040 ml 720 ml Exam Free Text/Dictation GENERAL: Alert, oriented x3. PULMONARY: Clear to auscultation bilaterally. CARDIOVASCULAR: S1, S2 present. ABDOMEN: Soft, nontender, nondistended. Bowel sounds positive. RIGHT LOWER EXTREMITY: Palpable femoral pulse, nonpalpable pedal pulse. Motor , sensory intact. Capillary refill 3 to 4 seconds and dependent rubor. The patient had a previous injury to the right foot where there is a previous surgical scar on the plantar aspect of the forefoot. LEFT LOWER EXTREMITY: Palpable femoral pulse, nonpalpable, Motor, sensory intact. Capillary refill 2 to 3 seconds. Results Result Diagram: 11/11/1630 11/11/1630 KAYLA JARAMILLO MD November 14, 2016 22:13
[2016-11-15] MEDS: HYDROCODONE/APAP (5/325) TAB PO PRN ×4 (00:34→21:10)
[2016-11-15] MEDS: TERBINAFINE 250 MG TAB PO SCH ×3 (01:07→21:02)
[2016-11-15] MEDS: HEPARIN 5,000 UNIT/0.5 ML VIAL SC SCH ×3 (05:39→21:53)
[2016-11-15] MEDS: morphine 2 MG INJ IV PRN ×5 (05:39→22:13)
[2016-11-15 07:27] VITALS: BP 119/72; RESP 18
[2016-11-15] MEDS: POLYETHYLENE GLYCOL 17 GM PACKET PO SCH ×2 (08:27→21:02)
[2016-11-15] MEDS: ASPIRIN (EC) 81 MG TAB PO SCH (08:28)
[2016-11-15] MEDS: CILOSTAZOL 100 MG TAB PO SCH ×2 (08:28→21:01)
[2016-11-15] MEDS: DOCUSATE SODIUM 100 MG CAP PO SCH ×2 (08:28→21:01)
[2016-11-15] MEDS: LISINOPRIL 5 MG TAB PO SCH (08:29)
[2016-11-15] MEDS: FAMOTIDINE 20 MG TAB PO SCH ×2 (08:29→21:01)
[2016-11-15] MEDS: CLOPIDOGREL 75 MG TAB PO SCH (08:29)
[2016-11-15] MEDS: GABAPENTIN 300 MG CAP PO SCH ×3 (08:29→21:01)
[2016-11-15] MEDS ORDERED: IOHEXOL 100 ML ONE (10:30)
[2016-11-15] MEDS ORDERED: IOHEXOL 350MG/ML 50 ML BTL ONE (10:30)
[2016-11-15] MEDS ORDERED: SOD CHLORIDE 0.9% 100 ML ONE (10:30)
--- NOTE | 2016-11-15 12:26 | PN ---
Date/Time of Note Date/Time of Note DATE: 11/15/16 TIME: 12:15 Assessment/Plan VTE Prophylaxis VTE Prophylaxis Intervention: LMWH Lines/Catheters IV [facility] Saline Lock Urinary Cath still in place: No Assessment/Plan Chief Complaint/Hosp Course Subjective: No chest pain. Speech clear. No fever. Mild shortness of breath/ wheeze. Speaking more than 2 sentences at a stretch. Objective: Vital signs stable PE No pallor JVD Reg; no m/r/g Clear Bs + nt nd, no R/R/G No edema Nonfocal Assessment and plan 1. Atypical chest pain. Stable, no ACS. Anticipate discharge 2. Slurred speech. Nonfocal. Probable Seroquel related-from his friend. 3. Nonadherence 4. Chronic PAD. Status post stent. Continue Plavix; Pletal 5. Chronic CAD;old [place]? Continue risk factor modification 6. Tobacco abuse sp counseling. Offered patch 7. Possible COPD/occupational lung disease. Doubt patient will be adherent enough to get PFTs done 8. Chronic dyslipidemia 9. Possible hep C. Confirmatory test pending 10. Onychomycosis 11. Adjustment disorder. Sp consultation by behavioral health. Cleared for discharge. On Lexapro 12. Prediabetes 13. Foreign body left tibia? Asymptomatic 14. Constipation. 15. Possible hypothyroidism, start treatment Problems: Exam/Review of Systems Vital Signs Vitals Vital Signs Date Time Temp Pulse Resp B/P Pulse Ox O2 Delivery O2 Flow Rate FiO2 11/15/16 07:27 97.7 57 18 119/72 98 11/14/16 06:30 Room Air Intake and Output 11/14/16 11/14/16 11/15/16 15:00 23:00 07:00 Intake Total 1100 ml 720 ml Balance 1100 ml 720 ml Results Result Diagram: 11/11/16 0630 11/11/16 0630 Medications Medications Current Medications Ondansetron HCl (Zofran Inj) 4 mg Q6H PRN IV NAUSEA AND/OR VOMITING; Start 11/09 at 05:30 Nitroglycerin (Nitroglycerin (Sl Tab) 0.4 Mg) 1 tab Q5M PRN SL CHEST PAIN Last administered on 11/09/16t 18:27; Admin Dose 1 TAB; Start 11/09/16 at 05:30 Acetaminophen (Tylenol Tab) 650 mg Q6H PRN PO PAIN LEVEL 1-3 OR FEVER; Start at 05:30 Atorvastatin Calcium (Lipitor) 40 mg QHS PO Last administered on 11/14/16 20:41 ; Admin Dose 40 MG; Start 11/09/16 at 21:00 Clopidogrel Bisulfate (plaVIX) 75 mg DAILY PO Last administered on 11/15/16 08: 29; Admin Dose 75 MG; Start 11/09/16 at 09:00 Gabapentin (Neurontin) 300 mg TID PO Last administered on 11/15/16 08:29; Admin Dose 300 MG; Start 11/09/16 at 09:00 Lisinopril (Zestril) 2.5 mg DAILY PO Last administered on 11/15/16 08:29; Admin Dose 2.5 MG; Start 11/09/16 at 09:00 Heparin Sodium (Porcine) (Heparin (5000 Units/0.5 ml)) 5,000 unit Q8 SC Last administered on 11/15/16 05:39; Admin Dose 5,000 UNIT; Start 11/09/16 at 22:00 Morphine Sulfate (morphine) 2 mg Q4H PRN IV PAIN Last administered on 11/15/16 09:57; Admin Dose 2 MG; Start 11/09/16 at 19:00 Polyethylene Glycol (Miralax) 17 gm BID PO Last administered on 11/15/16 08:27 ; Admin Dose 17 GM; Start 11/10/16 at 21:00 Docusate Sodium (Colace) 200 mg BID PO Last administered on 11/15/16 08:28; Admin Dose 200 MG; Start 11/10/16 at 21:00 Bisacodyl (Dulcolax) 10 mg DAILY PRN PO CONSTIPATION Last administered on 20:59; Admin Dose 10 MG; Start 11/10/16 at 14:30 Aspirin (Halfprin) 81 mg DAILY PO Last administered on 11/15/16 08:28; Admin Dose 81 MG; Start 11/11/16 at 09:00 Acetaminophen/ Hydrocodone Bitart ([place] (5/325)) 1 tab Q6H PRN PO PAIN LEVEL 4 -7 Last administered on 11/15/16 08:28; Admin Dose 1 TAB; Start 11/12/16 at 14:30 Cilostazol (Pletal) 100 mg BID PO Last administered on 11/15/16 08:28; Admin Dose 100 MG; Start 11/13/16 at 10:00 Terbinafine HCl (Lamisil) 250 mg BID PO Last administered on 11/15/16 08:29; Admin Dose 250 MG; Start 11/13/16 at 10:00; Stop 11/20/16 at 09:59 Famotidine (Pepcid) 20 mg HS PO ; Start 11/15/16 at 21:00 Nicotine (Nicoderm 14 Mg/ 24hr) 1 patch DAILY TRANSDERM ; Start 11/16/16 at 09:00 Levothyroxine Sodium (Synthroid) 25 mcg DAILY@06 PO ; Start 11/15/16 at 12:00 ALEX MORATAYA MD November 15, 2016 12:26
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
[2016-11-15] MEDS: LEVOTHYROXINE 25 MCG TAB PO SCH (13:56)
[2016-11-15] MEDS: ESCITALOPRAM 10 MG TAB PO SCH (13:57)
[2016-11-15 19:54] VITALS: BP 109/58; RESP 16
[2016-11-15] MEDS: ATORVASTATIN 40 MG TAB PO SCH (21:01)
[2016-11-16] MEDS: morphine 2 MG INJ IV PRN ×4 (06:26→21:43)
[2016-11-16] MEDS: LEVOTHYROXINE 25 MCG TAB PO SCH (06:26)
[2016-11-16] MEDS: HEPARIN 5,000 UNIT/0.5 ML VIAL SC SCH ×3 (06:27→22:07)
[2016-11-16 06:30] LABS: ADD SCAN DIFF NO
[2016-11-16 06:31] LABS: BASOPHIL # 0.1 10^3/ul (0.0-0.1); BASOPHILS % 0.8 % (0.0-2.0); EOSINOPHILS # 0.3 10^3/ul (0.0-0.5); EOSINOPHILS % 2.9 % (0.0-7.0); HEMATOCRIT 42.5 % (42.0-52.0); LYMPHOCYTES # 2.3 10^3/ul (0.8-2.9); LYMPHOCYTES % 25.4 % (15.0-51.0); MEAN CORPUSCULAR HEMOGLOBIN 28.7 pg (29.0-33.0); MEAN CORPUSCULAR HGB CONC 32.9 g/dl (32.0-37.0); MEAN CORPUSCULAR VOLUME 87.1 fl (82.0-101.0); MEAN PLATELET VOLUME 10.2 fl (7.4-10.4); MONOCYTE # 0.8 10^3/ul (0.3-0.9); MONOCYTES % 8.4 % (0.0-11.0); NEUTROPHIL # 5.6 10^3/ul (1.6-7.5); NEUTROPHILS % 61.2 % (39.0-77.0); PLATELET COUNT 216 10^3/UL (140-415); RED BLOOD COUNT 4.88 10^6/ul (4.70-6.10); RED CELL DISTRIBUTION WIDTH 13.3 % (11.5-14.5); WHITE BLOOD COUNT 9.1 10^3/ul (4.8-10.8)
[2016-11-16 07:34] LABS: ALBUMIN 3.7 g/dl (3.3-4.9); ALBUMIN/GLOBULIN RATIO 1.32; BILIRUBIN,INDIRECT 0.4 mg/dl (0-1.1); BILIRUBIN,TOTAL 0.4 mg/dl (0.2-1.3); CALCIUM 9.4 mg/dl (8.4-10.2); CREATININE 0.92 mg/dl (0.61-1.24); POTASSIUM 5.3 mmol/L (3.5-5.1); TOTAL PROTEIN 6.5 g/dl (6.1-8.1)
[2016-11-16 07:37] VITALS: BP 116/62; RESP 16
[2016-11-16] MEDS: DOCUSATE SODIUM 100 MG CAP PO SCH ×2 (08:43→20:45)
[2016-11-16] MEDS: POLYETHYLENE GLYCOL 17 GM PACKET PO SCH ×2 (08:43→20:46)
[2016-11-16] MEDS: GABAPENTIN 300 MG CAP PO SCH ×3 (08:43→20:45)
[2016-11-16] MEDS: NICOTINE (14 MG/24 HR) PATCH TRANSDERM SCH (08:43)
[2016-11-16] MEDS: ASPIRIN (EC) 81 MG TAB PO SCH (08:44)
[2016-11-16] MEDS: CLOPIDOGREL 75 MG TAB PO SCH (08:44)
[2016-11-16] MEDS: TERBINAFINE 250 MG TAB PO SCH ×2 (08:44→20:46)
[2016-11-16] MEDS: CILOSTAZOL 100 MG TAB PO SCH ×2 (08:44→20:46)
[2016-11-16] MEDS: ESCITALOPRAM 10 MG TAB PO SCH (08:44)
[2016-11-16] MEDS: LISINOPRIL 5 MG TAB PO SCH (08:44)
[2016-11-16] MEDS: HYDROCODONE/APAP (5/325) TAB PO PRN ×2 (08:45→17:13)
--- NOTE | 2016-11-16 09:24 | PN ---
Date/Time of Note Date/Time of Note DATE: 11/16/16 TIME: 09:19 Assessment/Plan Lines/Catheters IV C[facility]ter Type (from [facility]): Saline Lock Fisher in Place (from [facility]): No Assessment/Plan Chief Complaint/Hosp Course -Bilateral lower extremity atherosclerosis with short-distance disabling claudication: Seems the patient has peripheral arterial disease with being an active smoker. I have encouraged the patient for smoking cessation and educated him. However, the noninvasive vascular studies do not correlate with his infrainguinal findings and symptoms he mentions. At this time would recommend no further vascular intervention and quit smoking. Possible Thromboangiitis obliterans in which first line of therapy is cessation of smoking -Will plan to educate the patient more in terms of his overall medical health and also have the patient on antiplatelets: aspirin and Plavix. -Optimize vascular status (BP meds, cholesterol, weight loss, antiplatelets, sugar control) -Discussed findings, plan and management with the patient, and he understands. -Thank you for allowing us to partake in the care of your patient. Please call with any questions. Problems: Subjective 24 Hr Interval Summary no new vascular events over night Exam/Review of Systems Vital Signs Vitals Vital Signs Date Time Temp Pulse Resp B/P Pulse Ox O2 Delivery O2 Flow Rate FiO2 11/16/16 07:37 97.6 58 16 116/62 93 11/14/16 06:30 Room Air Intake and Output 11/15/16 11/15/16 11/16/16 15:00 23:00 07:00 Intake Total 1080 ml 950 ml Balance 1080 ml 950 ml Exam Free Text/Dictation GENERAL: Alert, oriented x3. PULMONARY: Clear to auscultation bilaterally. CARDIOVASCULAR: S1, S2 present. ABDOMEN: Soft, nontender, nondistended. Bowel sounds positive. RIGHT LOWER EXTREMITY: Palpable femoral pulse, nonpalpable pedal pulse. Motor , sensory intact. Capillary refill 3 to 4 seconds and dependent rubor. Previous surgical scar on the plantar aspect of the forefoot. LEFT LOWER EXTREMITY: Palpable femoral pulse, nonpalpable, Motor, sensory intact. Capillary refill 2 to 3 seconds. Results Result Diagram: 11/16/16 0555 11/16/16 0555 KAYLA JARAMILLO MD November 16, 2016 09:24
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
--- NOTE | 2016-11-16 13:59 | PDOCDIS ---
Discharge Instructions DIAGNOSIS Discharge Diagnosis: atypical chest pain CONDITION Patient Condition: Good HOME CARE INSTRUCTIONS: Special Diet: low fat, low cholesterol ACTIVITY: Activity Restrictions: Slowly Increase Activity FOLLOW UP/APPOINTMENTS Appointments PCP -1wk Dr Olivia- cox bransonALEX Saldaña MD November 16, 2016 13:59
[2016-11-16] MEDS ORDERED: POLY17PO6 PO (14:04)
[2016-11-16] MEDS ORDERED: Nicotine (14 Mg/24 Hr) TRANSDERM (14:04)
[2016-11-16] MEDS ORDERED: FAMO20TA18 PO (14:04)
[2016-11-16] MEDS ORDERED: TERB250T9 PO (14:04)
[2016-11-16] MEDS ORDERED: ASPI-664 PO (14:04)
[2016-11-16] MEDS ORDERED: LEVO25TA53 PO (14:04)
[2016-11-16] MEDS ORDERED: ACET325T40 PO (14:04)
[2016-11-16] MEDS ORDERED: ESCI10TA48 PO (14:04)
[2016-11-16] MEDS ORDERED: CILO100T PO (14:04)
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
[2016-11-16 19:47] VITALS: BP 114/76; RESP 18
[2016-11-16] MEDS: FAMOTIDINE 20 MG TAB PO SCH (20:45)
[2016-11-16] MEDS: ATORVASTATIN 40 MG TAB PO SCH (20:45)
[2016-11-17] MEDS: HYDROCODONE/APAP (5/325) TAB PO PRN ×4 (01:20→20:37)
[2016-11-17] MEDS: morphine 2 MG INJ IV PRN ×4 (05:44→23:59)
[2016-11-17] MEDS: LEVOTHYROXINE 25 MCG TAB PO SCH (05:51)
[2016-11-17] MEDS: HEPARIN 5,000 UNIT/0.5 ML VIAL SC SCH ×2 (05:53→13:09)
--- NOTE | 2016-11-17 06:50 | DS ---
DATE OF ADMISSION: 11/09/2016 DATE OF DISCHARGE: 11/16/2016 PRIMARY CARE PHYSICIAN: Unknown. CONSULTANTS: 1. Dr. Jaramillo. 2. Dr. Joey Tapia. DIAGNOSIS ON ADMISSION: Atypical chest pain. DIAGNOSES ON DISCHARGE: 1. Atypical chest pain. 2. Chronic peripheral artery disease. 3. Tobacco abuse. HOSPITAL COURSE: This is a 60-year-old gentleman admitted with chest pain, atypical, no known aggra vating or relieving factors. Ruled out for acute coronary syndrome by enzymes, EKG symptoms. He is stable and fit for discharge home. Risk factor modification. Reinforced the history of tobacco us e and benefits of quitting smoking. The patient was seen by podiatry along with vascular surgery regarding peripheral artery disease. Imaging appeared to show a chronic ongoing progressive peripheral artery disease. Our best ____ is risk factor modification. He is on aspirin and Plavix. We have added Pletal. He was advised to qu it smoking. He will follow up with vascular in maybe 1 month. I will start him on Pepcid to assist in GI prophylaxis. Down the line he could be potentially consolidated to less medications. He is to quit smoking as well. Chronic coronary artery disease, possible old [place], according to history, but the details are sketchy. I recommended he quit smoking. The patient had slurred speech. He was nonfocal. He took his fri end's Seroquel and I believe this was ____. Nonadherence. Chronic dyslipidemia. Possible hepatitis C. Confirmatory testing is a send out. No encephalopathy, etc. Possible chronic obstructive pulmonary disease, auscultation of lung disease. Doubt the patient mitzy l be adherent to any followups to get even PFTs done to step up therapy. I did reinforce the benefi ts of quitting smoking to help prevent cancer. Tobacco abuse, status post counseling, offered a patch. Onychomycosis on oral therapy. Adjustment disorder. The patient was seen by a behavioral health in consultation. He has been opti mized and cleared for discharge. I added Lexapro. Prediabetes. Potentially foreign body, left tibia. This is asymptomatic. I think he had some sort of shrapnel i njury in the past. Constipation. Started therapy. Possible subclinical hypothyroidism with constipation and occasional sinus bradycardia. I will star t treatment. DISCHARGE PLAN: 1. Home ____ 2. Dr. Jaramillo in maybe [address] Joey Tapia as needed. DIET: Low salt, low cholesterol, cardiac. ACTIVITY: Weightbearing as tolerated. CODE STATUS: FULL. CONDITION: Stable. BARRIERS TO DISCHARGE: None. PENDING TESTS: Hepatitis C, confirmatory testing which can be checked down the line. This test was a send out, Management will not change at this present time due to adherence. FUNCTIONAL STATUS: The patient awake, alert, agreed with the plan of care and options. DURABLE MEDICAL EQUIPMENT:. None. SPECIAL INSTRUCTIONS: None. STOPPED MEDICATIONS: None. IMAGING STUDIES: A 2D echo showing no acute process, EF is 65%. Chest x-ray: No acute process. C arotid ultrasound, no acute process. These were done for altered mental status. CAT scan of brain: No acute process. There are chronic appearing white matter infarcts in the right jamison radiata, left sub____ region, chronic changes and recommend risk factor modification. Ultrasound of lower extremities: Arterial did not show any stenosis or occlusion, x-ray right foot shows old healed fracture, chronic deformities, plantar calcaneal spur hammertoe, left fifth toe; fo reign body, soft tissue anterior distal tibia shaft; ankle on the left, small plantar calcaneal spu r; ____ no acute process. Abdominal angiogram was read as stents noted in the right and left superf icial femoral arteries, small right peroneal artery progressively obtained ____ on the level of the proximal right ankle. Small progressive attenuated right posterior tibial artery. Patient small ri ght anterior tibial artery with no focal stenosis. The mid and distal portions of the left posterio r tibial artery are small and attenuated with segment high-grade stenosis and occlusion with areas o f nonvisualization in the distal left posterior tibial artery. Overall, reduced size left of the ca rotid arteries in the midportion with progressive attenuation and reduced caliber as approaching th e ____. Hepatitis C antibody positive, hepatitis B negative. Urine tox screen shows opioids. INR 1. White cell count of 9, hemoglobin and hematocrit of 14 and 42, platelets of 216. Sodium 134, po tassium 5.3 on Edwin inhibitor, chloride 102, bicarbonate 26, BUN of 14, creatinine 0.9, glucose of 91 . A1c of 5.4, magnesium of 2, phosphorus of 2, bilirubin 0.4, AST and ALT of 51 and 94, alkaline ph osphatase 106, troponin is negative x4. Protein of 6, albumin of 3.7. TSH of 5.5, cholesterol 113, HDL 30, LDL 63, triglycerides 102. MEDICATIONS: STOPPED MEDICATIONS: I do not believe he needs Lasix, [place] or ____ at this time ____, but patient will probably due ____at home. CONTINUED MEDICATIONS: 1. Lipitor 40. 2. Plavix 75 mg. 3. Neurontin 300 t.i.d. 4. Lisinopril 2.5 daily. 5. Lopressor 25 daily. 6. Naproxen 500 b.i.d. as needed. ALTERED MEDICATIONS: None. NEW MEDICATIONS: 1. Tylenol as needed. 2. Ecotrin 81 daily. 3. Pletal. 4. Cilostazol 100 mg b.i.d. 5. Lexapro 10 daily. 6. Pepcid 20 daily. 5. Synthroid 25 mcg daily. 6. MiraLax 17 grams b.i.d. 7. Terbinafine 250 mg b.i.d. 8. [id number] Nicotine patch as directed. Dictated By: ALEX COATS/SKYLER Conf#: [id number] DID#: [id number] CC: KAYLA JARAMILLO MD; JOEY TAPAI DPM;*End*
[2016-11-17 08:03] VITALS: BP 108/67; RESP 20
[2016-11-17] MEDS: DOCUSATE SODIUM 100 MG CAP PO SCH ×2 (09:23→20:37)
[2016-11-17] MEDS: TERBINAFINE 250 MG TAB PO SCH ×2 (09:23→20:37)
[2016-11-17] MEDS: ESCITALOPRAM 10 MG TAB PO SCH (09:23)
[2016-11-17] MEDS: ASPIRIN (EC) 81 MG TAB PO SCH (09:23)
[2016-11-17] MEDS: GABAPENTIN 300 MG CAP PO SCH ×3 (09:23→20:37)
[2016-11-17] MEDS: CILOSTAZOL 100 MG TAB PO SCH ×2 (09:24→20:37)
[2016-11-17] MEDS: LISINOPRIL 5 MG TAB PO SCH (09:24)
[2016-11-17] MEDS: POLYETHYLENE GLYCOL 17 GM PACKET PO SCH ×2 (09:24→20:37)
[2016-11-17] MEDS: NICOTINE (14 MG/24 HR) PATCH TRANSDERM SCH (09:24)
[2016-11-17] MEDS: CLOPIDOGREL 75 MG TAB PO SCH (09:24)
--- NOTE | 2016-11-17 13:56 | RADRPT ---
PROCEDURE: US upper extremity Venous. CLINICAL INDICATION: Left arm edema , pain TECHNIQUE: Multiple sonographic images of the left upper extremity venous system was obtained util izing grayscale, color-flow, compressive sonography and doppler imaging with augmentation. The imag es were reviewed on a PACS workstation. COMPARISON: None. FINDINGS: There is normal compressibility and flow within the left internal jugular vein, subclavian vein, axi llary vein, brachial, basilic, cephalic, radial and ulnar veins. RPTAT: AA IMPRESSION: No sonographic evidence for venous thrombosis. .Alden Grijalva MD, MD Date Time Electronically viewed and signed by .Alden Grijalva MD, on 11/17/2016 13:55 .S/
--- NOTE | 2016-11-17 14:09 | PN ---
Date/Time of Note Date/Time of Note DATE: 11/17/16 TIME: 14:05 Assessment/Plan VTE Prophylaxis VTE Prophylaxis Intervention: LMWH Lines/Catheters IV Catheter Type (from [facility]): Saline Lock Urinary Cath still in place: No Assessment/Plan Chief Complaint/Hosp Course S: 11/15 no chest pain. Speech clear. No fever. Mild shortness of breath/wheeze. Speaking more than 2 sentences at a stretch. 11/16 no events 11/17 no dyspnea distress. Leg pains remain. Left arm swelling? Refused to walk yesterday. Not able to go back to [place]. O: Vss PE No pallor JVD Reg; no m/r/g Clear Bs + nt nd, no R/R/G No edema; rue- no erythema/ thrombophlebitis etc. salvador= poor peripheral pulses but present. Nonfocal Abdominal angiogram IMPRESSION: 1. Small right peroneal artery progressively attenuated distally and barely visualized at the level of the proximal right ankle. 2. Small progressively attenuated right posterior tibial artery. 3. Patent but small right anterior tibial artery with no focal stenosis identified. 4. The mid and distal portions of the left posterior tibial artery are small and attenuated with segmental high-grade stenoses and occlusions with areas of nonvisualization in the distal left posterior tibial artery. 5. There is overall reduced size of the left peroneal artery in its midportion with progressive attenuation and reduced caliber as approaches the ankle. A/P 1. Atypical chest pain. Stable, no ACS. Discharge 2. Slurred speech. Nonfocal. Probable Seroquel related-from his friend. 3. Nonadherence 4. Chronic PAD. Sp stent. Continue Plavix; Pletal. Tobacco cessation 5. Chronic CAD;old [place]? Continue risk factor modification 6. Tobacco abuse sp counseling. Offered patch 7. Possible COPD/occupational lung disease. Doubt patient will be adherent enough to get PFTs done 8. Chronic dyslipidemia 9. Possible hep C. Confirmatory test pending 10. Onychomycosis 11. Adjustment disorder. Sp consultation by behavioral health. Cleared for discharge. On Lexapro 12. Prediabetes 13. Foreign body left tibia? Asymptomatic 14. Constipation. 15. Possible hypothyroidism, start treatment 16. Ftt, snf if acceptable. Ambulate twice daily. Presently at 30 feet. Otherwise 'home health'. If he is not adherent will not qualify for snf. Problems: Exam/Review of Systems Vital Signs Vitals Vital Signs Date Time Temp Pulse Resp B/P Pulse Ox O2 Delivery O2 Flow Rate FiO2 11/17/16 08:03 97.6 59 20 108/67 95 11/14/16 06:30 Room Air Intake and Output 11/16/16 11/16/16 11/17/16 15:00 23:00 07:00 Intake Total 1700 ml 1150 ml Balance 1700 ml 1150 ml Results Result Diagram: 11/16/16 0555 11/16/16 0555 Results 24 hrs Laboratory Tests Test 11/17/16 12:49 Lab Scanned Report REFERENCE LAB Medications Medications Current Medications Ondansetron HCl (Zofran Inj) 4 mg Q6H PRN IV NAUSEA AND/OR VOMITING; Start 11/09 at 05:30 Nitroglycerin (Nitroglycerin (Sl Tab) 0.4 Mg) 1 tab Q5M PRN SL CHEST PAIN Last administered on 11/09/16 18:27; Admin Dose 1 TAB; Start 11/09/16 at 05:30 Acetaminophen (Tylenol Tab) 650 mg Q6H PRN PO PAIN LEVEL 1-3 OR FEVER; Start at 05:30 Atorvastatin Calcium (Lipitor) 40 mg QHS PO Last administered on 11/16/16 20:45 ; Admin Dose 40 MG; Start 11/09/16 at 21:00 Clopidogrel Bisulfate (plaVIX) 75 mg DAILY PO Last administered on 11/17/16 09 :24; Admin Dose 75 MG; Start 11/09/16 at 09:00 Gabapentin (Neurontin) 300 mg TID PO Last administered on 11/17/16 13:07; Admin Dose 300 MG; Start 11/09/16 at 09:00 Lisinopril (Zestril) 2.5 mg DAILY PO Last administered on 11/17/16 09:24; Admin Dose 2.5 MG; Start 11/09/16 at 09:00 Heparin Sodium (Porcine) (Heparin (5000 Units/0.5 ml)) 5,000 unit Q8 SC Last administered on 11/17/16 13:09; Admin Dose 5,000 UNIT; Start 11/09/16 at 22:00 Polyethylene Glycol (Miralax) 17 gm BID PO Last administered on 11/17/16 09:24 ; Admin Dose 17 GM; Start 11/10/16 at 21:00 Docusate Sodium (Colace) 200 mg BID PO Last administered on 11/17/16 09:23; Admin Dose 200 MG; Start 11/10/16 at 21:00 Bisacodyl (Dulcolax) 10 mg DAILY PRN PO CONSTIPATION Last administered on 20:59; Admin Dose 10 MG; Start 11/10/16 at 14:30 Aspirin (Halfprin) 81 mg DAILY PO Last administered on 11/17/16 09:23; Admin Dose 81 MG; Start 11/11/16 at 09:00 Cilostazol (Pletal) 100 mg BID PO Last administered on 11/17/16 09:24; Admin Dose 100 MG; Start 11/13/16 at 10:00 Terbinafine HCl (Lamisil) 250 mg BID PO Last administered on 11/17/16 09:23; Admin Dose 250 MG; Start 11/13/16 at 10:00; Stop 11/20/16 at 09:59 Famotidine (Pepcid) 20 mg HS PO Last administered on 11/16/16 20:45; Admin Dose 20 MG; Start 11/15/16 at 21:00 Nicotine (Nicoderm 14 Mg/ 24hr) 1 patch DAILY TRANSDERM Last administered on 09:24; Admin Dose 1 PATCH; Start 11/16/16 at 09:00 Levothyroxine Sodium (Synthroid) 25 mcg DAILY@06 PO Last administered on 05:51; Admin Dose 25 MCG; Start 11/15/16 at 12:00 Escitalopram Oxalate (Lexapro) 5 mg DAILY PO Last administered on 11/17/16 09: 23; Admin Dose 5 MG; Start 11/15/16 at 12:30 Acetaminophen/ Hydrocodone Bitart ([place] (5/325)) 1 tab Q4H PRN PO PAIN LEVEL 4 -7 Last administered on 11/17/16 10:24; Admin Dose 1 TAB; Start 11/16/16 at 21: 00 Morphine Sulfate (morphine) 2 mg Q6H PRN IV PAIN Last administered on 11:35; Admin Dose 2 MG; Start 11/16/16 at 18:00 ALEX MORATAYA MD November 17, 2016 14:09
[2016-11-17] MEDS: FAMOTIDINE 20 MG TAB PO SCH (20:37)
[2016-11-17] MEDS: ATORVASTATIN 40 MG TAB PO SCH (20:37)
[2016-11-17 21:56] VITALS: BP 123/65; RESP 18
--- NOTE | 2016-11-17 23:07 | PN ---
Date/Time of Note Date/Time of Note DATE: 11/17/16 TIME: 23:07 Assessment/Plan Lines/Catheters IV Catheter Type (from Nrs): Saline Lock Fisher in Place (from Nrs): No Assessment/Plan Problems: (1) Peripheral vascular disease with claudication Status: Chronic (2) Tobacco abuse disorder Status: Chronic (3) Personality disorder in adult Status: Chronic (4) Onychomycosis Status: Chronic Assessment/Plan Foot care and foot education was done. Applied daily moisturizing cream to both feet. Patient will be followed in-house. Subjective 24 Hr Interval Summary Patient was seen at bedside. Patient is in no acute distress. Patient reports no new adverse events. Patient denies fever, chills, nausea or vomiting. Patient denies pain. Patient denies recent trauma. Patient reports bandages are being changed as directed. Patient does not report any new problems. Exam/Review of Systems Vital Signs Vitals Vital Signs Date Time Temp Pulse Resp B/P Pulse Ox O2 Delivery O2 Flow Rate FiO2 11/22/16 07:48 97.6 64 20 109/61 93 11/19/16 17:26 Room Air 11/19/16 16:46 10 Intake and Output 11/21/16 11/21/16 11/22/16 15:00 23:00 07:00 Intake Total 890 ml 320 ml Balance 890 ml 320 ml Exam Free Text/Dictation GENERAL APPEARANCE: Patient is in no acute distress laying supine in bed VASCULAR EXAM: Dorsalis pedis and posterior tibial pulse weakly palpable bilateral. Delayed capillary filling time noted on exam. Normal temperature gradient noted on exam. There is no edema in the lower extremity. No varicose veins noted on examination NEUROLOGICAL EXAM: Protective sensation is diminished to sharp, dull, vibratory and temperature stimuli bilaterally. Normal deep tendon reflexes noted. Negative Tinel sign on examination of bilateral lower extremity DERMATOLOGICAL EXAM: Patient has severely dry skin on the bottom of both feet with cracking at the heels. There is multiple areas of dirt. No active open wound noted. There is no erythema and no drainage of pus or blood MUSCULOSKELETAL EXAM: Patient reports tenderness as I examine both feet. There is no specific point of tenderness. There is contracted toes on both feet with limited range of motion of the ankle joints and the first metatarsophalangeal joints. There is no crepitus on range of motion. IMAGING: Reviewed in chart LABS: Reviewed in chart Results Result Diagram: 11/22/16 0510 11/22/16 0510 ISABELLA TAPIA DPM November 17, 2016 23:07
[2016-11-18] MEDS: HYDROCODONE/APAP (5/325) TAB PO PRN ×4 (04:13→21:52)
[2016-11-18] MEDS: LEVOTHYROXINE 25 MCG TAB PO SCH (06:21)
[2016-11-18] MEDS: morphine 2 MG INJ IV PRN ×4 (06:24→23:07)
[2016-11-18 07:38] VITALS: BP 117/65; RESP 20
[2016-11-18] MEDS: DOCUSATE SODIUM 100 MG CAP PO SCH ×2 (10:51→20:10)
[2016-11-18] MEDS: ASPIRIN (EC) 81 MG TAB PO SCH (10:51)
[2016-11-18] MEDS: TERBINAFINE 250 MG TAB PO SCH ×2 (10:51→20:09)
[2016-11-18] MEDS: LISINOPRIL 5 MG TAB PO SCH (10:52)
[2016-11-18] MEDS: POLYETHYLENE GLYCOL 17 GM PACKET PO SCH ×2 (10:52→20:08)
[2016-11-18] MEDS: GABAPENTIN 300 MG CAP PO SCH ×3 (10:52→20:09)
[2016-11-18] MEDS: CILOSTAZOL 100 MG TAB PO SCH ×2 (10:52→20:09)
[2016-11-18] MEDS: CLOPIDOGREL 75 MG TAB PO SCH (10:52)
[2016-11-18] MEDS: ESCITALOPRAM 10 MG TAB PO SCH (10:52)
[2016-11-18] MEDS: ENOXAPARIN 40 MG/0.4 ML SYG SC SCH (10:53)
[2016-11-18] MEDS: NICOTINE (14 MG/24 HR) PATCH TRANSDERM SCH (10:54)
--- NOTE | 2016-11-18 12:29 | PN ---
Date/Time of Note Date/Time of Note DATE: 11/18/16 TIME: 12:27 Assessment/Plan VTE Prophylaxis VTE Prophylaxis Intervention: LMWH Lines/Catheters IV [facility] Saline Lock Urinary Cath still in place: No Assessment/Plan Chief Complaint/Hosp Course S: 11/15 no chest pain. Speech clear. No fever. Mild shortness of breath/wheeze. Speaking more than 2 sentences at a stretch. 11/16 no events 11/17 no dyspnea distress. Leg pains remain. Left arm swelling? Refused to walk yesterday. Not able to go back to [place]. 11/18 reinforce the benefits of ambulation on general health and PAD. No shortness of breath. Constipation remains an issue. We are treating hypothyroidism. No warning signs or weight loss. Colonoscopy at some point. O: Vss PE No pallor JVD Reg; no m/r/g Clear Bs + nt nd, no R/R/G No edema; rue- no erythema/ thrombophlebitis etc. salvador= poor peripheral pulses but present. Nonfocal Abdominal angiogram IMPRESSION: 1. Small right peroneal artery progressively attenuated distally and barely visualized at the level of the proximal right ankle. 2. Small progressively attenuated right posterior tibial artery. 3. Patent but small right anterior tibial artery with no focal stenosis identified. 4. The mid and distal portions of the left posterior tibial artery are small and attenuated with segmental high-grade stenoses and occlusions with areas of nonvisualization in the distal left posterior tibial artery. 5. There is overall reduced size of the left peroneal artery in its midportion with progressive attenuation and reduced caliber as approaches the ankle. A/P 1. Atypical chest pain. Stable, no ACS. Discharge 2. Slurred speech, resolved. Nonfocal. Probable Seroquel related-from his friend. 3. Nonadherence 4. Chronic PAD. Sp stent. Continue Plavix; Pletal. Tobacco cessation 5. Chronic CAD;old [place]? Continue risk factor modification 6. Tobacco abuse sp counseling. Offered patch 7. Possible COPD/occupational lung disease. Doubt p will be adherent enough to get PFTs done 8. Chronic dyslipidemia 9. Possible hep C. Confirmatory test pending 10. Onychomycosis 11. Adjustment disorder. Sp consultation by behavioral health. Cleared for discharge. On Lexapro 12. Prediabetes 13. Foreign body left tibia? Asymptomatic 14. Constipation. 15. Probable hypothyroidism, start treatment 16. Ftt, snf if acceptable. Ambulate twice daily. Presently at 30 feet. Otherwise 'home health'. If he is not adherent, will not qualify for further stay. Problems: Exam/Review of Systems Vital Signs Vitals Vital Signs Date Time Temp Pulse Resp B/P Pulse Ox O2 Delivery O2 Flow Rate FiO2 11/18/16 07:38 97.8 57 20 117/65 93 Intake and Output 11/17/16 11/17/16 11/18/16 15:00 23:00 07:00 Intake Total 1280 ml 1100 ml Balance 1280 ml 1100 ml Results Result Diagram: 11/16/1655411/16/16 0555 Results 24 hrs Laboratory Tests Test 11/17/16 12:49 Lab Scanned Report REFERENCE LAB Medications Medications Current Medications Ondansetron HCl (Zofran Inj) 4 mg Q6H PRN IV NAUSEA AND/OR VOMITING; Start 11/09 at 05:30 Nitroglycerin (Nitroglycerin (Sl Tab) 0.4 Mg) 1 tab Q5M PRN SL CHEST PAIN Last administered on 11/09/16 18:27; Admin Dose 1 TAB; Start 11/09/16 at 05:30 Acetaminophen (Tylenol Tab) 650 mg Q6H PRN PO PAIN LEVEL 1-3 OR FEVER; Start at 05:30 Atorvastatin Calcium (Lipitor) 40 mg QHS PO Last administered on 11/17/16 20: 37; Admin Dose 40 MG; Start 11/09/16 at 21:00 Clopidogrel Bisulfate (plaVIX) 75 mg DAILY PO Last administered on 11/18/16 10 :52; Admin Dose 75 MG; Start 11/09/16 at 09:00 Gabapentin (Neurontin) 300 mg TID PO Last administered on 11/18/16 10:52; Admin Dose 300 MG; Start 11/09/16 at 09:00 Lisinopril (Zestril) 2.5 mg DAILY PO Last administered on 11/18/16 10:52; Admin Dose 2.5 MG; Start 11/09/16 at 09:00 Polyethylene Glycol (Miralax) 17 gm BID PO Last administered on 11/18/16 10:52 ; Admin Dose 17 GM; Start 11/10/16 at 21:00 Docusate Sodium (Colace) 200 mg BID PO Last administered on 11/18/16 10:51; Admin Dose 200 MG; Start 11/10/16 at 21:00 Bisacodyl (Dulcolax) 10 mg DAILY PRN PO CONSTIPATION Last administered on 20:59; Admin Dose 10 MG; Start 11/10/16 at 14:30 Aspirin (Halfprin) 81 mg DAILY PO Last administered on 11/18/16 10:51; Admin Dose 81 MG; Start 11/11/16 at 09:00 Cilostazol (Pletal) 100 mg BID PO Last administered on 11/18/16 10:52; Admin Dose 100 MG; Start 11/13/16 at 10:00 Terbinafine HCl (Lamisil) 250 mg BID PO Last administered on 11/18/16 10:51; Admin Dose 250 MG; Start 11/13/16 at 10:00; Stop 11/20/16 at 09:59 Famotidine (Pepcid) 20 mg HS PO Last administered on 11/17/16 20:37; Admin Dose 20 MG; Start 11/15/16 at 21:00 Nicotine (Nicoderm 14 Mg/ 24hr) 1 patch DAILY TRANSDERM Last administered on 10:54; Admin Dose 1 PATCH; Start 11/16/16 at 09:00 Levothyroxine Sodium (Synthroid) 25 mcg DAILY@06 PO Last administered on 06:21; Admin Dose 25 MCG; Start 11/15/16 at 12:00 Escitalopram Oxalate (Lexapro) 5 mg DAILY PO Last administered on 11/18/16 10: 52; Admin Dose 5 MG; Start 11/15/16 at 12:30 Acetaminophen/ Hydrocodone Bitart ([place] (5/325)) 1 tab Q4H PRN PO PAIN LEVEL 4 -7 Last administered on 11/18/16 11:02; Admin Dose 1 TAB; Start 11/16/16 at 21: 00 Morphine Sulfate (morphine) 2 mg Q6H PRN IV PAIN Last administered on 06:24; Admin Dose 2 MG; Start 11/16/16 at 18:00 Enoxaparin Sodium (Lovenox) 40 mg DAILY SC Last administered on 5/11/17at 10:53 ; Admin Dose 40 MG; Start 11/18/16 at 09:00 ALEX MORATAYA MD November 18, 2016 12:29
--- NOTE | 2016-11-18 14:31 | CONS ---
Date/Time of Note Date/Time of Note DATE: 11/18/16 TIME: 14:13 Assessment/Plan Assessment/Plan Additional Assessment/Plan Assessment * Constipation * Screening colonoscopy * Peripheral artery disease * Chest pain Resolved Plan * colonoscopy risks and benefits explained to patient and agreed with planned procedure Consultation Date/Type/Reason Admit Date/Time 11/09/2016 Date of Consultation: November 18, 2016 Type of Consultation: Gastroenterology Reason for Consultation constipation Referring Provider: ALEX MORATAYA MD Hx of Present Illness 60 year old homeless male who was admitted with chief complaint of chest pain and slurred speech.On the emergency room ,patient subsequently recovered .CT scanNo acute intracranial abnormalities. Chronic-appearing white matter infarcts of the right jamison radiata and left sub insular region. Moderate chronic-appearing microvascular ischemic changes of the supratentorial white matter.Troponin is negative.Patient claimed also to have claudication where a CT abdominal angiogram Small right peroneal artery progressively attenuated distally and barely visualized at the level of the proximal right ankle Small progressively attenuated right posterior tibial artery. Patent but small right anterior tibial artery with no focal stenosis identified. The mid and distal portions of the left posterior tibial artery are small and attenuated with segmental high-grade stenoses and occlusions with areas of nonvisualization in the distal left posterior tibial artery.. There is overall reduced size of the left peroneal artery in its midportion with progressive attenuation and reduced caliber as approaches the ankle.. Presently patient complains of constipation with vague abdominal pain.denies any hematochezia,hematemesis,nor diarrhea.no colonoscopy . Constitutional: no complaints Respiratory: no complaints Cardiovascular: chest pain Gastrointestinal: no complaints Genitourinary: no complaints Musculoskeletal: other (Complains of feet pain) Psychological: nl mood/affect, no complaints Past Medical History Medical History: hypothyroid (PAD) Past Surgical History Past Surgical Hx: no surgical history Family History Significant Family History: no pertinent family hx Social History Alcohol Use: none Smoking Status: Current some day smoker Drug Use: none Exam/Review of Systems Vital Signs Vitals Vital Signs Date Time Temp Pulse Resp B/P Pulse Ox O2 Delivery O2 Flow Rate FiO2 11/18/16 07:38 97.8 57 20 117/65 93 Intake and Output 11/17/16 11/17/16 11/18/16 15:00 23:00 07:00 Intake Total 1280 ml 1100 ml Balance 1280 ml 1100 ml Exam Constitutional: alert, oriented, well developed Psych: nl mood/affect Head: atraumatic, normocephalic Eyes: PERRL, nl conjunctiva, nl sclera Neck: non-tender, supple Respiratory: clear to auscultation, normal air movement Cardiovascular: nl pulses, regular rate and rhythm Gastrointestinal: nl liver, spleen, non-tender, soft Musculoskeletal: nl extremities to inspection, nl gait and stance Extremities: normal pulses 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: 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 OPERATOR 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 OR CONTINUOUS II-XII intact, nl mental status, nl speech, nl strength Skin: nl turgor, No rash or lesions Lymph: nl lymph nodes Results Result Diagram: 11/16/1655411/16/16554 Medications Medications Current Medications Ondansetron HCl (Zofran Inj) 4 mg Q6H PRN IV NAUSEA AND/OR VOMITING; Start 11/09 at 05:30 Nitroglycerin (Nitroglycerin (Sl Tab) 0.4 Mg) 1 tab Q5M PRN SL CHEST PAIN Last administered on 11/09/16 18:27; Admin Dose 1 TAB; Start 11/09/16 at 05:30 Acetaminophen (Tylenol Tab) 650 mg Q6H PRN PO PAIN LEVEL 1-3 OR FEVER; Start at 05:30 Atorvastatin Calcium (Lipitor) 40 mg QHS PO Last administered on 11/17/16 20: 37; Admin Dose 40 MG; Start 11/09/16 at 21:00 Clopidogrel Bisulfate (plaVIX) 75 mg DAILY PO Last administered on 11/18/16 10 :52; Admin Dose 75 MG; Start 11/09/16 at 09:00 Gabapentin (Neurontin) 300 mg TID PO Last administered on 11/18/16 12:41; Admin Dose 300 MG; Start 11/09/16 at 09:00 Lisinopril (Zestril) 2.5 mg DAILY PO Last administered on 11/18/16 10:52; Admin Dose 2.5 MG; Start 11/09/16 at 09:00 Polyethylene Glycol (Miralax) 17 gm BID PO Last administered on 11/18/16 10:52 ; Admin Dose 17 GM; Start 11/10/16 at 21:00 Docusate Sodium (Colace) 200 mg BID PO Last administered on 11/18/16 10:51; Admin Dose 200 MG; Start 11/10/16 at 21:00 Bisacodyl (Dulcolax) 10 mg DAILY PRN PO CONSTIPATION Last administered on 20:59; Admin Dose 10 MG; Start 11/10/16 at 14:30 Aspirin (Halfprin) 81 mg DAILY PO Last administered on 11/18/16 10:51; Admin Dose 81 MG; Start 11/11/16 at 09:00 Cilostazol (Pletal) 100 mg BID PO Last administered on 11/18/16 10:52; Admin Dose 100 MG; Start 11/13/16 at 10:00 Terbinafine HCl (Lamisil) 250 mg BID PO Last administered on 11/18/16 10:51; Admin Dose 250 MG; Start 11/13/16 at 10:00; Stop 11/20/16 at 09:59 Famotidine (Pepcid) 20 mg HS PO Last administered on 11/17/16 20:37; Admin Dose 20 MG; Start 11/15/16 at 21:00 Nicotine (Nicoderm 14 Mg/ 24hr) 1 patch DAILY TRANSDERM Last administered on 10:54; Admin Dose 1 PATCH; Start 11/16/16 at 09:00 Levothyroxine Sodium (Synthroid) 25 mcg DAILY@06 PO Last administered on 06:21; Admin Dose 25 MCG; Start 11/15/16 at 12:00 Escitalopram Oxalate (Lexapro) 5 mg DAILY PO Last administered on 11/18/16 10: 52; Admin Dose 5 MG; Start 11/15/16 at 12:30 Acetaminophen/ Hydrocodone Bitart ([place] (5/325)) 1 tab Q4H PRN PO PAIN LEVEL 4 -7 Last administered on 11/18/16 11:02; Admin Dose 1 TAB; Start 11/16/16 at 21: 00 Morphine Sulfate (morphine) 2 mg Q6H PRN IV PAIN Last administered on 12:36; Admin Dose 2 MG; Start 11/16/16 at 18:00 Enoxaparin Sodium (Lovenox) 40 mg DAILY SC Last administered on 11/18/16 10:53 ; Admin Dose 40 MG; Start 11/18/16 at 09:00 KAREN PINO MD November 18, 2016 14:24
[2016-11-18] MEDS ORDERED: BISACODYL (EC) 5 MG TAB PO ONE (15:00)
[2016-11-18] MEDS ORDERED: MAGNESIUM CITRATE 300 ML BTL PO ONE (17:30)
[2016-11-18] MEDS ORDERED: POLYETHYLENE GLYCOL 3350 119 GM POWDER PO ONE (18:30)
[2016-11-18 19:54] VITALS: BP 131/80; RESP 19
[2016-11-18] MEDS: FAMOTIDINE 20 MG TAB PO SCH (20:09)
[2016-11-18] MEDS: ATORVASTATIN 40 MG TAB PO SCH (20:10)
[2016-11-19] VITALS (8 sets, daily range): BP systolic 105–140; BP diastolic 70–83; PULSE 54–60; RESP 12–20
[2016-11-19] MEDS: HYDROCODONE/APAP (5/325) TAB PO PRN ×5 (02:22→23:26)
[2016-11-19] MEDS: morphine 2 MG INJ IV PRN ×4 (03:02→20:56)
[2016-11-19] MEDS: LEVOTHYROXINE 25 MCG TAB PO SCH (05:08)
[2016-11-19] MEDS ORDERED: POLYETHYLENE GLYCOL 3350 119 GM POWDER PO ONE (06:00)
[2016-11-19] MEDS ORDERED: BISACODYL (EC) 5 MG TAB PO ONE (08:00)
[2016-11-19] MEDS: CLOPIDOGREL 75 MG TAB PO SCH (09:00)
[2016-11-19] MEDS: ASPIRIN (EC) 81 MG TAB PO SCH (09:00)
[2016-11-19] MEDS: ENOXAPARIN 40 MG/0.4 ML SYG SC SCH (09:00)
[2016-11-19] MEDS: LISINOPRIL 5 MG TAB PO SCH (09:00)
[2016-11-19] MEDS: NICOTINE (14 MG/24 HR) PATCH TRANSDERM SCH (09:16)
[2016-11-19] MEDS: TERBINAFINE 250 MG TAB PO SCH ×2 (09:17→20:49)
[2016-11-19] MEDS: ESCITALOPRAM 10 MG TAB PO SCH (09:17)
[2016-11-19] MEDS: DOCUSATE SODIUM 100 MG CAP PO SCH ×2 (09:17→20:48)
[2016-11-19] MEDS: CILOSTAZOL 100 MG TAB PO SCH ×2 (09:18→20:50)
[2016-11-19] MEDS: GABAPENTIN 300 MG CAP PO SCH ×3 (09:18→20:50)
[2016-11-19] MEDS: POLYETHYLENE GLYCOL 17 GM PACKET PO SCH ×2 (09:18→20:49)
--- NOTE | 2016-11-19 12:56 | PN ---
Date/Time of Note Date/Time of Note DATE: 11/19/16 TIME: 12:52 Assessment/Plan VTE Prophylaxis VTE Prophylaxis Intervention: contraindicated (Procedure planned) Lines/Catheters IV [facility]ter [facility] (from [facility] [place] Urinary Cath still in place: No Assessment/Plan Chief Complaint/Hosp Course S: 11/15 no chest pain. Speech clear. No fever. Mild shortness of breath/wheeze. Speaking more than 2 sentences at a stretch. 11/16 no events 11/17 no dyspnea distress. Leg pains remain. Left arm swelling? Refused to walk yesterday. Not able to go back to [place]. 11/18 reinforce the benefits of ambulation on general health/ PAD. No shortness of breath. Constipation remains; treat hypothyroidism. No warning signs/wt loss. Colonoscopy. 11/19 no events. O: Vss PE No pallor/ JVD Reg; no m/r/g Clear Bs + nt nd, no R/R/G No edema; poor peripheral pulses but present. A/P 1. Atypical chest pain. Stable, no ACS. Discharge-snf vs home w home health. 2. Slurred speech, resolved. Nonfocal. Probable Seroquel related-from his friend. 3. Nonadherence 4. Chr PAD. Sp stent. Cont Plavix; Pletal. Tobacco cessation 5. Chr CAD;old IN? Cont rfm 6. Tobacco abuse sp counseling. Offered patch 7. Possible COPD/occupational lung disease. Doubt pt will be adherent enough to get PFTs done 8. Chronic dyslipidemia 9. Possible hep C. Confirmatory test pending 10. Onychomycosis 11. Adjustment dis. Sp consult w behavioral health. Cleared for discharge. On Lexapro 12. Prediabetes 13. Foreign body left tibia? Asymptomatic 14. Constipation. Rx hypothyroidism. For colonoscopy. 15. Probable hypothyroidism, start treatment 16. Ftt, snf if acceptable. Ambulate twice daily. Presently at 30 feet. Otherwise 'home health'. If he is nonadherent, will not qualify for further stay. Problems: Exam/Review of Systems Vital Signs Vitals Vital Signs Date Time Temp Pulse Resp B/P Pulse Ox O2 Delivery O2 Flow Rate FiO2 11/19/16 08:21 97.6 60 17 105/73 97 Intake and Output 11/18/16 11/18/16 11/19/16 15:00 23:00 07:00 Intake Total 1720 ml 1940 ml Balance 1720 ml 1940 ml Results Result Diagram: 11/16/16 0555 11/16/16 0555 Medications Medications Current Medications Ondansetron HCl (Zofran Inj) 4 mg Q6H PRN IV NAUSEA AND/OR VOMITING; Start 11/09 at 05:30 Nitroglycerin (Nitroglycerin (Sl Tab) 0.4 Mg) 1 tab Q5M PRN SL CHEST PAIN Last administered on 11/09/16 18:27; Admin Dose 1 TAB; Start 11/09/16 at 05:30 Acetaminophen (Tylenol Tab) 650 mg Q6H PRN PO PAIN LEVEL 1-3 OR FEVER; Start at 05:30 Atorvastatin Calcium (Lipitor) 40 mg QHS PO Last administered on 11/18/16 20: 10; Admin Dose 40 MG; Start 11/09/16 at 21:00 Clopidogrel Bisulfate (plaVIX) 75 mg DAILY PO Last administered on 11/18/16 10 :52; Admin Dose 75 MG; Start 11/09/16 at 09:00 Gabapentin (Neurontin) 300 mg TID PO Last administered on 11/19/16 09:18; Admin Dose 300 MG; Start 11/09/16 at 09:00 Lisinopril (Zestril) 2.5 mg DAILY PO Last administered on 11/18/16 10:52; Admin Dose 2.5 MG; Start 11/09/16 at 09:00 Polyethylene Glycol (Miralax) 17 gm BID PO Last administered on 11/19/16 09:18 ; Admin Dose 17 GM; Start 11/10/16 at 21:00 Docusate Sodium (Colace) 200 mg BID PO Last administered on 11/19/16 09:17; Admin Dose 200 MG; Start 11/10/16 at 21:00 Bisacodyl (Dulcolax) 10 mg DAILY PRN PO CONSTIPATION Last administered on 20:59; Admin Dose 10 MG; Start 11/10/16 at 14:30 Aspirin (Halfprin) 81 mg DAILY PO Last administered on 11/18/16 10:51; Admin Dose 81 MG; Start 11/11/16 at 09:00 Cilostazol (Pletal) 100 mg BID PO Last administered on 11/19/16 09:18; Admin Dose 100 MG; Start 11/13/16 at 10:00 Terbinafine HCl (Lamisil) 250 mg BID PO Last administered on 11/19/16 09:17; Admin Dose 250 MG; Start 11/13/16 at 10:00; Stop 11/20/16 at 09:59 Famotidine (Pepcid) 20 mg HS PO Last administered on 11/18/16 20:09; Admin Dose 20 MG; Start 11/15/16 at 21:00 Nicotine (Nicoderm 14 Mg/ 24hr) 1 patch DAILY TRANSDERM Last administered on 09:16; Admin Dose 1 PATCH; Start 11/16/16 at 09:00 Levothyroxine Sodium (Synthroid) 25 mcg DAILY@06 PO Last administered on 05:08; Admin Dose 25 MCG; Start 11/15/16 at 12:00 Escitalopram Oxalate (Lexapro) 5 mg DAILY PO Last administered on 11/19/16 09: 17; Admin Dose 5 MG; Start 11/15/16 at 12:30 Acetaminophen/ Hydrocodone Bitart ([place] (5/325)) 1 tab Q4H PRN PO PAIN LEVEL 4 -7 Last administered on 11/19/16 11:07; Admin Dose 1 TAB; Start 11/16/16 at 21: 00 Morphine Sulfate (morphine) 2 mg Q6H PRN IV PAIN Last administered on 09:19; Admin Dose 2 MG; Start 11/16/16 at 18:00 Enoxaparin Sodium (Lovenox) 40 mg DAILY SC Last administered on 11/18/16 10:53 ; Admin Dose 40 MG; Start 11/18/16 at 09:00 ALEX MORATAYA MD November 19, 2016 12:56
[2016-11-19] MEDS ORDERED: LIDOCAINE 2% (SDV) 5 ML INJ ONE (16:17)
[2016-11-19] MEDS ORDERED: PROPOFOL 40 ML ONE (16:17)
[2016-11-19] MEDS ORDERED: FENTAnyl 50 MCG/ML VIAL IV PRN ×2 (17:00)
[2016-11-19] MEDS ORDERED: ONDANSETRON 4 MG INJ IV PRN (17:00)
[2016-11-19] MEDS ORDERED: LABETALOL HCL 20MG INJ IV PRN (17:00)
[2016-11-19] MEDS ORDERED: hydrALAzine 20 MG INJ IV PRN (17:00)
[2016-11-19] MEDS ORDERED: DIPHENHYDRAMINE 50 MG INJ IV PRN (17:00)
[2016-11-19] MEDS ORDERED: MEPERIDINE 25 MG INJ IV PRN (17:00)
[2016-11-19] MEDS ORDERED: EPHEDrine SULFATE 50 MG/5 ML SYG IV PRN (17:00)
--- NOTE | 2016-11-19 17:25 | GILP ---
DATE OF PROCEDURE: 11/19/2016 PROCEDURE: Colonoscopy to cecum. BRIEF HISTORY AND INDICATIONS: The patient is being evaluated for chronic constipation. PREMEDICATION: Monitored anesthesia care by anesthesiologist. SURGEON: Karen Vincent MD. INSTRUMENT USED: Olympus colonoscope. PREPARATION: Fair. TECHNIQUE: After informed consent, with the patient/relatives understanding the procedure, its indic ations potential risks and complications, including but not limited to: allergic reaction, bleeding, perforation, infection, missed lesions and after all pertinent questions were answered to the patie nt's satisfaction, the patient/relatives signed the witnessed informed consent. Following this, premedication was administered slowly IV push by under careful cardiovascular and re spiratory monitoring with pulse oximetry, automatic blood pressure and facility security officer. Once the sedativ e effect was achieved, the patient was placed in the left lateral decubitus position, digital rectal examination was performed. The colonoscope was then introduced and advanced under visual control th roughout all segments of the colon including: the rectum, sigmoid, descending colon, splenic flexure , transverse colon, hepatic flexure, ascending colon and finally reaching the cecum which was clearl y identified by transillumination, finger indentation and the ileocecal valve. Careful examination o f the mucosa of the lower gastrointestinal tract both on insertion as well as withdrawal of the inst rument disclosed the following findings: Rectal Examination: No evidence of perirectal disease, no masses. Colonic Mucosa: The colonic mucosa is unremarkable with the exception of mild atherosclerosis of th e sigmoid colon. The ileocecal valve was clearly identified and appears unremarkable. The instrument was then withdrawn, reexamining the mucosa in detail. No additional abnormalities ar e noted with the exception of moderate sized internal hemorrhoids. IMPRESSION: 1. Mild diverticulosis on the left side of the colon. 2. Moderate size internal hemorrhoids. PLAN: The patient will be advised on a high-fiber diet with the addition of fiber supplementation, MiraLax 17 g daily if necessary for management of constipation. Annual Hemoccult stool testing and colonoscopy in 10 years are also recommended. Dictated By: KAREN VINCENT MS/SKYLER Conf#: [id number] DID#: [id number]
[2016-11-19] MEDS: ATORVASTATIN 40 MG TAB PO SCH (20:49)
[2016-11-19] MEDS: FAMOTIDINE 20 MG TAB PO SCH (20:50)
[2016-11-20] MEDS: morphine 2 MG INJ IV PRN ×3 (04:41→18:46)
[2016-11-20] MEDS: LEVOTHYROXINE 25 MCG TAB PO SCH (05:36)
[2016-11-20] MEDS: HYDROCODONE/APAP (5/325) TAB PO PRN ×5 (05:37→22:29)
[2016-11-20 08:02] VITALS: BP 120/66; RESP 16
[2016-11-20] MEDS: ENOXAPARIN 40 MG/0.4 ML SYG SC SCH (08:08)
[2016-11-20] MEDS: CLOPIDOGREL 75 MG TAB PO SCH (08:09)
[2016-11-20] MEDS: ESCITALOPRAM 10 MG TAB PO SCH (08:09)
[2016-11-20] MEDS: NICOTINE (14 MG/24 HR) PATCH TRANSDERM SCH (08:09)
[2016-11-20] MEDS: ASPIRIN (EC) 81 MG TAB PO SCH (08:09)
[2016-11-20] MEDS: GABAPENTIN 300 MG CAP PO SCH ×3 (08:09→22:29)
[2016-11-20] MEDS: CILOSTAZOL 100 MG TAB PO SCH ×2 (08:09→22:28)
[2016-11-20] MEDS: DOCUSATE SODIUM 100 MG CAP PO SCH ×2 (08:09→22:28)
[2016-11-20] MEDS: LISINOPRIL 5 MG TAB PO SCH (08:10)
[2016-11-20] MEDS: TERBINAFINE 250 MG TAB PO SCH (08:11)
[2016-11-20] MEDS: POLYETHYLENE GLYCOL 17 GM PACKET PO SCH ×2 (09:00→22:28)
[2016-11-20 09:31] LABS: ADD SCAN DIFF NO; BASOPHIL # 0.1 10^3/ul (0.0-0.1); BASOPHILS % 0.5 % (0.0-2.0); EOSINOPHILS # 0.2 10^3/ul (0.0-0.5); EOSINOPHILS % 2.3 % (0.0-7.0); HEMATOCRIT 46.8 % (42.0-52.0); HEMOGLOBIN 15.5 g/dl (14.0-18.0); LYMPHOCYTES # 2.4 10^3/ul (0.8-2.9); LYMPHOCYTES % 25.4 % (15.0-51.0); MEAN CORPUSCULAR HEMOGLOBIN 28.9 pg (29.0-33.0); MEAN CORPUSCULAR HGB CONC 33.1 g/dl (32.0-37.0); MEAN CORPUSCULAR VOLUME 87.3 fl (82.0-101.0); MEAN PLATELET VOLUME 9.8 fl (7.4-10.4); MONOCYTE # 0.7 10^3/ul (0.3-0.9); MONOCYTES % 7.2 % (0.0-11.0); NEUTROPHIL # 5.9 10^3/ul (1.6-7.5); NEUTROPHILS % 63.7 % (39.0-77.0); PLATELET COUNT 233 10^3/UL (140-415); RED BLOOD COUNT 5.36 10^6/ul (4.70-6.10); RED CELL DISTRIBUTION WIDTH 13.2 % (11.5-14.5); WHITE BLOOD COUNT 9.3 10^3/ul (4.8-10.8)
[2016-11-20 09:52] LABS: CALCIUM 9.7 mg/dl (8.4-10.2); CREATININE 0.89 mg/dl (0.61-1.24); POTASSIUM 4.3 mmol/L (3.5-5.1)
--- NOTE | 2016-11-20 10:31 | CONS ---
Date/Time of Note Date/Time of Note DATE: 11/20/16 TIME: 10:21 Assessment/Plan Assessment/Plan Additional Assessment/Plan Constipation S/p Colonoscopy: 1.Mild diverticulosis on the left side of the colon. 2. Moderate size internal hemorrhoids. Peripheral artery disease Chest pain Resolved Plan Continue present regimen The patient will be advised on a high-fiber diet with the addition of fiber supplementation MiraLax 17 g daily if necessary for management of constipation Annual Hemoccult stool testing and colonoscopy in 10 years are also recommended. Further recommendations depend on clinical course Pt seen in collaboration with Dr. Vincent Consultation Date/Type/Reason Admit Date/Time November 09, 2016 at 02:30 Initial Consult Date 11/18/16 Type of Consultation: Gastroenterology Referring Provider: ALEX MORATAYA MD 24 HR Interval Summary Free Text/Dictation Kamryn diet Advised pt of test results Exam/Review of Systems Vital Signs Vitals Vital Signs Date Time Temp Pulse Resp B/P Pulse Ox O2 Delivery O2 Flow Rate FiO2 11/20/16 08:02 97.5 16 120/66 95 11/19/16 20:02 76 11/19/16 17:26 Room Air 11/19/16 16:46 10 Intake and Output 11/19/16 11/19/16 11/20/16 14:59 22:59 06:59 Intake Total 1050 ml 500 ml Balance 1050 ml 500 ml Exam Constitutional: alert, oriented, well developed Psych: nl mood/affect Head: atraumatic, normocephalic Eyes: PERRL, nl conjunctiva, nl sclera Neck: non-tender, supple Respiratory: clear to auscultation, normal air movement Cardiovascular: nl pulses, regular rate and rhythm Gastrointestinal: nl liver, spleen, non-tender, soft Musculoskeletal: nl extremities to inspection, nl gait and stance Extremities: normal pulses 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: 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 intact, nl mental status, nl speech, nl strength Skin: nl turgor, No rash or lesions Lymph: nl lymph nodes Results Result Diagram: 11/20/16 0853 11/20/16 0853 Results 24 hrs Laboratory Tests Test 11/20/16 08:53 White Blood Count 9.3 Red Blood Count 5.36 Hemoglobin 15.5 Hematocrit 46.8 Mean Corpuscular Volume 87.3 Mean Corpuscular Hemoglobin 28.9 L Mean Corpuscular Hemoglobin Concent 33.1 Red Cell Distribution Width 13.2 Platelet Count 233 Mean Platelet Volume 9.8 Neutrophils % 63.7 Lymphocytes % 25.4 Monocytes % 7.2 Eosinophils % 2.3 Basophils % 0.5 Nucleated Red Blood Cells % 0.0 Neutrophils # 5.9 Lymphocytes # 2.4 Monocytes # 0.7 Eosinophils # 0.2 Basophils # 0.1 Nucleated Red Blood Cells # 0.0 Sodium Level 134 L Potassium Level 4.3 Chloride Level 102 Carbon Dioxide Level 25 Anion Gap 11 Blood Urea Nitrogen 19 Creatinine 0.89 Glucose Level 114 Calcium Level 9.7 Medications Medications Current Medications Ondansetron HCl (Zofran Inj) 4 mg Q6H PRN IV NAUSEA AND/OR VOMITING; Start 11/09 at 05:30 Nitroglycerin (Nitroglycerin (Sl Tab) 0.4 Mg) 1 tab Q5M PRN SL CHEST PAIN Last administered on 11/09/16 18:27; Admin Dose 1 TAB; Start 11/09/16 at 05:30 Acetaminophen (Tylenol Tab) 650 mg Q6H PRN PO PAIN LEVEL 1-3 OR FEVER; Start at 05:30 Atorvastatin Calcium (Lipitor) 40 mg QHS PO Last administered on 11/19/16 20: 49; Admin Dose 40 MG; Start 11/09/16 at 21:00 Clopidogrel Bisulfate (plaVIX) 75 mg DAILY PO Last administered on 11/20/16 08 :09; Admin Dose 75 MG; Start 11/09/16 at 09:00 Gabapentin (Neurontin) 300 mg TID PO Last administered on 11/20/16 08:09; Admin Dose 300 MG; Start 11/09/16 at 09:00 Lisinopril (Zestril) 2.5 mg DAILY PO Last administered on 11/20/16 08:10; Admin Dose 2.5 MG; Start 11/09/16 at 09:00 Polyethylene Glycol (Miralax) 17 gm BID PO Last administered on 11/19/16 09:18 ; Admin Dose 17 GM; Start 11/10/16 at 21:00 Docusate Sodium (Colace) 200 mg BID PO Last administered on 11/20/16 08:09; Admin Dose 200 MG; Start 11/10/16 at 21:00 Bisacodyl (Dulcolax) 10 mg DAILY PRN PO CONSTIPATION Last administered on 20:59; Admin Dose 10 MG; Start 11/10/16 at 14:30 Aspirin (Halfprin) 81 mg DAILY PO Last administered on 11/20/16 08:09; Admin Dose 81 MG; Start 11/11/16 at 09:00 Cilostazol (Pletal) 100 mg BID PO Last administered on 11/20/16 08:09; Admin Dose 100 MG; Start 11/13/16 at 10:00 Famotidine (Pepcid) 20 mg HS PO Last administered on 11/19/16 20:50; Admin Dose 20 MG; Start 11/15/16 at 21:00 Nicotine (Nicoderm 14 Mg/ 24hr) 1 patch DAILY TRANSDERM Last administered on 08:09; Admin Dose 1 PATCH; Start 11/16/16 at 09:00 Levothyroxine Sodium (Synthroid) 25 mcg DAILY@06 PO Last administered on 05:36; Admin Dose 25 MCG; Start 11/15/16 at 12:00 Escitalopram Oxalate (Lexapro) 5 mg DAILY PO Last administered on 11/20/16 08: 09; Admin Dose 5 MG; Start 11/15/16 at 12:30 Acetaminophen/ Hydrocodone Bitart ([place] (5/325)) 1 tab Q4H PRN PO PAIN LEVEL 4 -7 Last administered on 11/20/16 08:10; Admin Dose 1 TAB; Start 11/16/16 at 21: 00 Morphine Sulfate (morphine) 2 mg Q6H PRN IV PAIN Last administered on 04:41; Admin Dose 2 MG; Start 11/16/16 at 18:00 Enoxaparin Sodium (Lovenox) 40 mg DAILY SC Last administered on 11/20/16 08:08 ; Admin Dose 40 MG; Start 11/18/16 at 09:00 ROSHAN BACK November 20, 2016 10:31
--- NOTE | 2016-11-20 14:45 | PN ---
Date/Time of Note Date/Time of Note DATE: 11/20/16 TIME: 14:42 Assessment/Plan VTE Prophylaxis VTE Prophylaxis Intervention: LMWH Lines/Catheters [facility] Peripheral IV Urinary Cath still in place: No Assessment/Plan Chief Complaint/Hosp Course S: 11/15 no chest pain. Speech clear. No fever. Mild shortness of breath/wheeze. Speaking more than 2 sentences at a stretch. 11/16 no events 11/17 no dyspnea distress. Leg pains remain. Left arm swelling? Refused to walk yesterday. Not able to go back to [place]. 11/18 reinforce the benefits of ambulation on general health/ PAD. No shortness of breath. Constipation remains; treat hypothyroidism. No warning signs/wt loss. Colonoscopy. 11/19 no events. 11/20 no events. O: Vss PE No pallor Reg; no m/r/g Clear Bs + nt nd, no R/R/G No edema; poor peripheral pulses but present. A/P 1. Atypical chest pain. Stable, no ACS. Dc-snf vs home w home health. 2. Slurred speech, resolved. Nonfocal. Probable Seroquel related-from his friend. 3. Nonadherence 4. Chr PAD. Sp stent. Cont Plavix; Pletal. Tobacco cessation 5. Chr CAD;old ID? Cont rfm 6. Tobacco abuse sp counseling. Offered patch 7. Possible COPD/occupational lung disease. Doubt pt will be adherent enough to get PFTs done 8. Chronic dyslipidemia 9. Probable hep C. Confirmatory test pending 10. Onychomycosis 11. Adjustment dis. Sp consult w behavioral health. Cleared for discharge. On Lexapro 12. Prediabetes 13. Foreign body left tibia? Asymptomatic/likely shrapnel related 14. Constipation. Rx hypothyroidism. sp colonoscopy. 15. Probable hypothyroidism, started treatment 16. Ftt, snf if acceptable. Ambulate twice daily. Presently at 30 feet. Otherwise 'home health'. If he is nonadherent, will not qualify for further stay. 17. Mild diverticulosis 18. Hemorrhoids Problems: Exam/Review of Systems Vital Signs Vitals Vital Signs Date Time Temp Pulse Resp B/P Pulse Ox O2 Delivery O2 Flow Rate FiO2 11/20/16 08:02 97.5 16 120/66 95 11/19/16 20:02 76 11/19/16 17:26 Room Air 11/19/16 16:46 10 Intake and Output 11/19/16 11/19/16 11/20/16 15:00 23:00 07:00 Intake Total 1050 ml 500 ml Balance 1050 ml 500 ml Results Result Diagram: 11/20/16 0853 11/20/16 0853 Results 24 hrs Laboratory Tests Test 11/20/16 08:53 White Blood Count 9.3 Red Blood Count 5.36 Hemoglobin 15.5 Hematocrit 46.8 Mean Corpuscular Volume 87.3 Mean Corpuscular Hemoglobin 28.9 L Mean Corpuscular Hemoglobin Concent 33.1 Red Cell Distribution Width 13.2 Platelet Count 233 Mean Platelet Volume 9.8 Neutrophils % 63.7 Lymphocytes % 25.4 Monocytes % 7.2 Eosinophils % 2.3 Basophils % 0.5 Nucleated Red Blood Cells % 0.0 Neutrophils # 5.9 Lymphocytes # 2.4 Monocytes # 0.7 Eosinophils # 0.2 Basophils # 0.1 Nucleated Red Blood Cells # 0.0 Sodium Level 134 L Potassium Level 4.3 Chloride Level 102 Carbon Dioxide Level 25 Anion Gap 11 Blood Urea Nitrogen 19 Creatinine 0.89 Glucose Level 114 Calcium Level 9.7 Medications Medications Current Medications Ondansetron HCl (Zofran Inj) 4 mg Q6H PRN IV NAUSEA AND/OR VOMITING; Start 11/09 at 05:30 Nitroglycerin (Nitroglycerin (Sl Tab) 0.4 Mg) 1 tab Q5M PRN SL CHEST PAIN Last administered on 11/09/16 18:27; Admin Dose 1 TAB; Start 11/09/16 at 05:30 Acetaminophen (Tylenol Tab) 650 mg Q6H PRN PO PAIN LEVEL 1-3 OR FEVER; Start at 05:30 Atorvastatin Calcium (Lipitor) 40 mg QHS PO Last administered on 11/19/16 20: 49; Admin Dose 40 MG; Start 11/09/16 at 21:00 Clopidogrel Bisulfate (plaVIX) 75 mg DAILY PO Last administered on 11/20/16 08 :09; Admin Dose 75 MG; Start 11/09/16 at 09:00 Gabapentin (Neurontin) 300 mg TID PO Last administered on 11/20/16 12:24; Admin Dose 300 MG; Start 11/09/16 at 09:00 Lisinopril (Zestril) 2.5 mg DAILY PO Last administered on 11/20/16 08:10; Admin Dose 2.5 MG; Start 11/09/16 at 09:00 Polyethylene Glycol (Miralax) 17 gm BID PO Last administered on 11/19/16 09:18 ; Admin Dose 17 GM; Start 11/10/16 at 21:00 Docusate Sodium (Colace) 200 mg BID PO Last administered on 11/20/16 08:09; Admin Dose 200 MG; Start 11/10/16 at 21:00 Bisacodyl (Dulcolax) 10 mg DAILY PRN PO CONSTIPATION Last administered on 20:59; Admin Dose 10 MG; Start 11/10/16 at 14:30 Aspirin (Halfprin) 81 mg DAILY PO Last administered on 11/20/16 08:09; Admin Dose 81 MG; Start 11/11/16 at 09:00 Cilostazol (Pletal) 100 mg BID PO Last administered on 11/20/16 08:09; Admin Dose 100 MG; Start 11/13/16 at 10:00 Famotidine (Pepcid) 20 mg HS PO Last administered on 11/19/16 20:50; Admin Dose 20 MG; Start 11/15/16 at 21:00 Nicotine (Nicoderm 14 Mg/ 24hr) 1 patch DAILY TRANSDERM Last administered on 08:09; Admin Dose 1 PATCH; Start 11/16/16 at 09:00 Levothyroxine Sodium (Synthroid) 25 mcg DAILY@06 PO Last administered on 05:36; Admin Dose 25 MCG; Start 11/15/16 at 12:00 Escitalopram Oxalate (Lexapro) 5 mg DAILY PO Last administered on 11/20/16 08: 09; Admin Dose 5 MG; Start 11/15/16 at 12:30 Acetaminophen/ Hydrocodone Bitart ([place] (5/325)) 1 tab Q4H PRN PO PAIN LEVEL 4 -7 Last administered on 11/20/16 12:22; Admin Dose 1 TAB; Start 11/16/16 at 21: 00 Morphine Sulfate (morphine) 2 mg Q6H PRN IV PAIN Last administered on 11:25; Admin Dose 2 MG; Start 11/16/16 at 18:00 Enoxaparin Sodium (Lovenox) 40 mg DAILY SC Last administered on 11/20/16t 08:08 ; Admin Dose 40 MG; Start 11/18/16 at 09:00 ALEX MORATAYA MD November 20, 2016 14:45
[2016-11-20 21:29] VITALS: BP 113/73; RESP 20
[2016-11-20] MEDS: FAMOTIDINE 20 MG TAB PO SCH (22:29)
[2016-11-20] MEDS: ATORVASTATIN 40 MG TAB PO SCH (22:29)
[2016-11-21] MEDS: LEVOTHYROXINE 25 MCG TAB PO SCH (05:16)
[2016-11-21] MEDS: morphine 2 MG INJ IV PRN ×3 (05:21→22:17)
[2016-11-21 07:05] VITALS: BP 134/66; RESP 16
[2016-11-21] MEDS: HYDROCODONE/APAP (5/325) TAB PO PRN ×3 (09:20→20:24)
[2016-11-21] MEDS: GABAPENTIN 300 MG CAP PO SCH ×3 (09:21→20:23)
[2016-11-21] MEDS: ESCITALOPRAM 10 MG TAB PO SCH (09:21)
[2016-11-21] MEDS: CILOSTAZOL 100 MG TAB PO SCH ×2 (09:21→20:24)
[2016-11-21] MEDS: LISINOPRIL 5 MG TAB PO SCH (09:23)
[2016-11-21] MEDS: ASPIRIN (EC) 81 MG TAB PO SCH (09:24)
[2016-11-21] MEDS: NICOTINE (14 MG/24 HR) PATCH TRANSDERM SCH (09:24)
[2016-11-21] MEDS: POLYETHYLENE GLYCOL 17 GM PACKET PO SCH ×2 (09:24→20:24)
[2016-11-21] MEDS: DOCUSATE SODIUM 100 MG CAP PO SCH ×2 (09:24→20:24)
[2016-11-21] MEDS: CLOPIDOGREL 75 MG TAB PO SCH (09:25)
[2016-11-21] MEDS: ENOXAPARIN 40 MG/0.4 ML SYG SC SCH (09:27)
--- NOTE | 2016-11-21 11:30 | PN ---
Date/Time of Note Date/Time of Note DATE: 11/21/16 TIME: 11:28 Assessment/Plan VTE Prophylaxis VTE Prophylaxis Intervention: LMWH Lines/Catheters IV [facility]from [facility] Saline Lock Urinary Cath still in place: No Assessment/Plan Chief Complaint/Hosp Course S: 11/15 no chest pain. Speech clear. No fever. Mild shortness of breath/wheeze. Speaking more than 2 sentences at a stretch. 11/16 no events 11/17 no dyspnea distress. Leg pains remain. Left arm swelling? Refused to walk yesterday. Not able to go back to [place]. 11/18 reinforce the benefits of ambulation on general health/ PAD. No shortness of breath. Constipation remains; treat hypothyroidism. No warning signs/wt loss. Colonoscopy. 11/19 no events 11/20 no events 11/21 no events; ambulating in hallway circling the whole unit. O: Vss PE No pallor Reg; no m/r/g Clear Bs + nt nd, no R/R/G No edema; poor peripheral pulses but present. A/P 1. Atypical chest pain. Stable, no ACS. Dc-snf vs home w home health. 2. Slurred speech, resolved. Nonfocal. Probable Seroquel related-from his friend. 3. Nonadherence 4. Chr PAD. Sp stent. Cont Plavix; Pletal. Tobacco cessation 5. Chr CAD;old [place]? Cont rfm/ on asa too. 6. Tobacco abuse sp counseling. Offered patch 7. Possible COPD/occupational lung disease. Doubt pt will be adherent enough to get PFTs done 8. Chronic dyslipidemia 9. Probable hep C. Confirmatory test pending 10. Onychomycosis 11. Adjustment dis. Sp consult w behavioral health. Cleared for discharge. On Lexapro 12. Prediabetes 13. Foreign body left tibia? Asymptomatic/likely shrapnel related 14. Constipation. Rx hypothyroidism. sp colonoscopy. 15. Probable hypothyroidism, started treatment 16. Ftt, snf if acceptable. Ambulate bid. Presently at 30 ft? Otherwise 'home health'. If he is nonadherent, will not qualify for further stay. 17. Mild diverticulosis 18. Hemorrhoids Problems: Exam/Review of Systems Vital Signs Vitals Vital Signs Date Time Temp Pulse Resp B/P Pulse Ox O2 Delivery O2 Flow Rate FiO2 11/21/16 07:05 98.1 63 16 134/66 95 11/19/16 17:26 Room Air 11/19/16 16:46 10 Intake and Output 11/20/16 11/20/16 11/21/16 14:59 22:59 06:59 Intake Total 720 ml Balance 720 ml Results Result Diagram: 11/20/16 0853 11/20/16 0853 Medications Medications Current Medications Ondansetron HCl (Zofran Inj) 4 mg Q6H PRN IV NAUSEA AND/OR VOMITING; Start 11/09 at 05:30 Nitroglycerin (Nitroglycerin (Sl Tab) 0.4 Mg) 1 tab Q5M PRN SL CHEST PAIN Last administered on 11/09/16 18:27; Admin Dose 1 TAB; Start 11/09/16 at 05:30 Acetaminophen (Tylenol Tab) 650 mg Q6H PRN PO PAIN LEVEL 1-3 OR FEVER; Start at 05:30 Atorvastatin Calcium (Lipitor) 40 mg QHS PO Last administered on 11/20/16 22: 29; Admin Dose 40 MG; Start 11/09/16 at 21:00 Clopidogrel Bisulfate (plaVIX) 75 mg DAILY PO Last administered on 11/21/16 09 :25; Admin Dose 75 MG; Start 11/09/16 at 09:00 Gabapentin (Neurontin) 300 mg TID PO Last administered on 11/21/16 09:21; Admin Dose 300 MG; Start 11/09/16 at 09:00 Lisinopril (Zestril) 2.5 mg DAILY PO Last administered on 11/21/16 09:23; Admin Dose 2.5 MG; Start 11/09/16 at 09:00 Polyethylene Glycol (Miralax) 17 gm BID PO Last administered on 11/21/16 09:24 ; Admin Dose 17 GM; Start 11/10/16 at 21:00 Docusate Sodium (Colace) 200 mg BID PO Last administered on 11/21/16 09:24; Admin Dose 200 MG; Start 11/10/16 at 21:00 Bisacodyl (Dulcolax) 10 mg DAILY PRN PO CONSTIPATION Last administered on 20:59; Admin Dose 10 MG; Start 11/10/16 at 14:30 Aspirin (Halfprin) 81 mg DAILY PO Last administered on 11/21/16 09:24; Admin Dose 81 MG; Start 11/11/16 at 09:00 Cilostazol (Pletal) 100 mg BID PO Last administered on 11/21/16 09:21; Admin Dose 100 MG; Start 11/13/16 at 10:00 Famotidine (Pepcid) 20 mg HS PO Last administered on 11/20/16 22:29; Admin Dose 20 MG; Start 11/15/16 at 21:00 Nicotine (Nicoderm 14 Mg/ 24hr) 1 patch DAILY TRANSDERM Last administered on 09:24; Admin Dose 1 PATCH; Start 11/16/16 at 09:00 Levothyroxine Sodium (Synthroid) 25 mcg DAILY@06 PO Last administered on 05:16; Admin Dose 25 MCG; Start 11/15/16 at 12:00 Escitalopram Oxalate (Lexapro) 5 mg DAILY PO Last administered on 11/21/16 09: 21; Admin Dose 5 MG; Start 11/15/16 at 12:30 Acetaminophen/ Hydrocodone Bitart ([place] (5/325)) 1 tab Q4H PRN PO PAIN LEVEL 4 -7 Last administered on 11/21/16 09:20; Admin Dose 1 TAB; Start 11/16/16 at 21: 00 Enoxaparin Sodium (Lovenox) 40 mg DAILY SC Last administered on 11/21/16 09:27 ; Admin Dose 40 MG; Start 11/18/16 at 09:00 Morphine Sulfate (morphine) 2 mg Q8H PRN IV PAIN Last administered on 05:21; Admin Dose 2 MG; Start 11/20/16 at 15:00 ALEX MORATAYA MD November 21, 2016 11:30
[2016-11-21] MEDS: TERBINAFINE 250 MG TAB PO SCH ×2 (12:48→20:24)
--- NOTE | 2016-11-21 13:55 | CONS ---
Date/Time of Note Date/Time of Note DATE: 11/21/16 TIME: 13:54 Assessment/Plan Assessment/Plan Additional Assessment/Plan Constipation S/p Colonoscopy: 1.Mild diverticulosis on the left side of the colon. 2. Moderate size internal hemorrhoids. Peripheral artery disease Chest pain Resolved Plan Continue present regimen The patient will be advised on a high-fiber diet with the addition of fiber supplementation MiraLax 17 g daily if necessary for management of constipation Annual Hemoccult stool testing and colonoscopy in 10 years are also recommended. Further recommendations depend on clinical course Pt seen in collaboration with Dr. Vincent Consultation Date/Type/Reason Admit Date/Time November 09, 2016 at 02:30 Initial Consult Date 11/18/16 Type of Consultation: Gastroenterology Referring Provider: ALEX MORATAYA MD 24 HR Interval Summary Free Text/Dictation Tolerating diet Denies abdominal pain Exam/Review of Systems Vital Signs Vitals Vital Signs Date Time Temp Pulse Resp B/P Pulse Ox O2 Delivery O2 Flow Rate FiO2 11/21/16 07:05 98.1 63 16 134/66 95 11/19/16 17:26 Room Air 11/19/16 16:46 10 Intake and Output 11/20/16 11/20/16 11/21/16 15:00 23:00 07:00 Intake Total 720 ml Balance 720 ml Exam Constitutional: alert, oriented, well developed Psych: nl mood/affect Head: atraumatic, normocephalic Eyes: PERRL, nl conjunctiva, nl sclera Neck: non-tender, supple Respiratory: clear to auscultation, normal air movement Cardiovascular: nl pulses, regular rate and rhythm Gastrointestinal: nl liver, spleen, non-tender, soft Musculoskeletal: nl extremities to inspection, nl gait and stance Extremities: normal pulses 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: HAND FINISHER II-XII intact, nl mental status, nl speech, nl strength Skin: nl turgor, No rash or lesions Lymph: nl lymph nodes Results Result Diagram: 11/20/16 0853 11/20/16 0853 Medications Medications Current Medications Ondansetron HCl (Zofran Inj) 4 mg Q6H PRN IV NAUSEA AND/OR VOMITING; Start 11/09 at 05:30 Nitroglycerin (Nitroglycerin (Sl Tab) 0.4 Mg) 1 tab Q5M PRN SL CHEST PAIN Last administered on 11/09/16 18:27; Admin Dose 1 TAB; Start 11/09/16 at 05:30 Acetaminophen (Tylenol Tab) 650 mg Q6H PRN PO PAIN LEVEL 1-3 OR FEVER; Start at 05:30 Atorvastatin Calcium (Lipitor) 40 mg QHS PO Last administered on 11/20/16 22: 29; Admin Dose 40 MG; Start 11/09/16 at 21:00 Clopidogrel Bisulfate (plaVIX) 75 mg DAILY PO Last administered on 11/21/16 09 :25; Admin Dose 75 MG; Start 11/09/16 at 09:00 Gabapentin (Neurontin) 300 mg TID PO Last administered on 11/21/16 12:48; Admin Dose 300 MG; Start 11/09/16 at 09:00 Lisinopril (Zestril) 2.5 mg DAILY PO Last administered on 11/21/16 09:23; Admin Dose 2.5 MG; Start 11/09/16 at 09:00 Polyethylene Glycol (Miralax) 17 gm BID PO Last administered on 11/21/16 09:24 ; Admin Dose 17 GM; Start 11/10/16 at 21:00 Docusate Sodium (Colace) 200 mg BID PO Last administered on 11/21/16 09:24; Admin Dose 200 MG; Start 11/10/16 at 21:00 Bisacodyl (Dulcolax) 10 mg DAILY PRN PO CONSTIPATION Last administered on 20:59; Admin Dose 10 MG; Start 11/10/16 at 14:30 Aspirin (Halfprin) 81 mg DAILY PO Last administered on 11/21/16 09:24; Admin Dose 81 MG; Start 11/11/16 at 09:00 Cilostazol (Pletal) 100 mg BID PO Last administered on 11/21/16 09:21; Admin Dose 100 MG; Start 11/13/16 at 10:00 Famotidine (Pepcid) 20 mg HS PO Last administered on 11/20/16 22:29; Admin Dose 20 MG; Start 11/15/16 at 21:00 Nicotine (Nicoderm 14 Mg/ 24hr) 1 patch DAILY TRANSDERM Last administered on 09:24; Admin Dose 1 PATCH; Start 11/16/16 at 09:00 Levothyroxine Sodium (Synthroid) 25 mcg DAILY@06 PO Last administered on 05:16; Admin Dose 25 MCG; Start 11/15/16 at 12:00 Escitalopram Oxalate (Lexapro) 5 mg DAILY PO Last administered on 11/21/16 09: 21; Admin Dose 5 MG; Start 11/15/16 at 12:30 Acetaminophen/ Hydrocodone Bitart ([place] (5/325)) 1 tab Q4H PRN PO PAIN LEVEL 4 -7 Last administered on 11/21/16 09:20; Admin Dose 1 TAB; Start 11/16/16 at 21: 00 Enoxaparin Sodium (Lovenox) 40 mg DAILY SC Last administered on 11/21/16 09:27 ; Admin Dose 40 MG; Start 11/18/16 at 09:00; Status Future hold Morphine Sulfate (morphine) 2 mg Q8H PRN IV PAIN Last administered on 05:21; Admin Dose 2 MG; Start 11/20/16 at 15:00 Terbinafine HCl (Lamisil) 250 mg BID PO Last administered on 11/21/16 12:48; Admin Dose 250 MG; Start 11/21/16 at 12:00 Lactobacillus Acidophilus/ Rhamnosus (Culturelle) 1 cap BID PO ; Start 11/21/16 at 21:00 ROSHAN BACK November 21, 2016 13:55
[2016-11-21 19:30] VITALS: BP 111/67; RESP 16
[2016-11-21] MEDS: LACTOBACILLUS RHAMNOSUS CAP PO SCH (20:23)
[2016-11-21] MEDS: ATORVASTATIN 40 MG TAB PO SCH (20:23)
[2016-11-21] MEDS: FAMOTIDINE 20 MG TAB PO SCH (20:24)
[2016-11-22] MEDS: HYDROCODONE/APAP (5/325) TAB PO PRN ×3 (00:43→10:05)
[2016-11-22] MEDS: LEVOTHYROXINE 25 MCG TAB PO SCH (05:45)
[2016-11-22 06:02] LABS: ADD SCAN DIFF NO
[2016-11-22 06:10] LABS: BASOPHIL # 0.1 10^3/ul (0.0-0.1); BASOPHILS % 0.7 % (0.0-2.0); EOSINOPHILS # 0.3 10^3/ul (0.0-0.5); EOSINOPHILS % 2.6 % (0.0-7.0); HEMATOCRIT 41.6 % (42.0-52.0); HEMOGLOBIN 14.1 g/dl (14.0-18.0); LYMPHOCYTES # 3.1 10^3/ul (0.8-2.9); LYMPHOCYTES % 32.6 % (15.0-51.0); MEAN CORPUSCULAR HEMOGLOBIN 29.3 pg (29.0-33.0); MEAN CORPUSCULAR HGB CONC 33.9 g/dl (32.0-37.0); MEAN CORPUSCULAR VOLUME 86.3 fl (82.0-101.0); MEAN PLATELET VOLUME 9.7 fl (7.4-10.4); MONOCYTE # 0.9 10^3/ul (0.3-0.9); MONOCYTES % 9.1 % (0.0-11.0); NEUTROPHIL # 5.1 10^3/ul (1.6-7.5); PLATELET COUNT 239 10^3/UL (140-415); RED BLOOD COUNT 4.82 10^6/ul (4.70-6.10); WHITE BLOOD COUNT 9.5 10^3/ul (4.8-10.8)
[2016-11-22] MEDS: morphine 2 MG INJ IV PRN ×2 (06:24→14:29)
[2016-11-22 06:35] LABS: ALBUMIN 3.4 g/dl (3.3-4.9); POTASSIUM 4.1 mmol/L (3.5-5.1)
[2016-11-22 06:37] LABS: BILIRUBIN,INDIRECT 0.1 mg/dl (0-1.1); BILIRUBIN,TOTAL 0.1 mg/dl (0.2-1.3); CREATININE 0.98 mg/dl (0.61-1.24)
[2016-11-22 06:38] LABS: ALBUMIN/GLOBULIN RATIO 1.13; CALCIUM 9.1 mg/dl (8.4-10.2); MAGNESIUM 2.1 mg/dl (1.7-2.5); TOTAL PROTEIN 6.4 g/dl (6.1-8.1)
[2016-11-22 07:48] VITALS: BP 109/61; RESP 20
[2016-11-22] MEDS ORDERED: ENOXAPARIN 30 MG/0.3 ML SYG SC SCH (09:00)
[2016-11-22] MEDS: GABAPENTIN 300 MG CAP PO SCH ×2 (09:51→12:36)
[2016-11-22] MEDS: DOCUSATE SODIUM 100 MG CAP PO SCH (09:51)
[2016-11-22] MEDS: LACTOBACILLUS RHAMNOSUS CAP PO SCH (09:51)
[2016-11-22] MEDS: CLOPIDOGREL 75 MG TAB PO SCH (09:51)
[2016-11-22] MEDS: ESCITALOPRAM 10 MG TAB PO SCH (09:52)
[2016-11-22] MEDS: CILOSTAZOL 100 MG TAB PO SCH (09:52)
[2016-11-22] MEDS: ASPIRIN (EC) 81 MG TAB PO SCH (09:52)
[2016-11-22] MEDS: NICOTINE (14 MG/24 HR) PATCH TRANSDERM SCH (09:53)
[2016-11-22] MEDS: LISINOPRIL 5 MG TAB PO SCH (09:53)
[2016-11-22] MEDS: TERBINAFINE 250 MG TAB PO SCH (09:53)
[2016-11-22] MEDS: POLYETHYLENE GLYCOL 17 GM PACKET PO SCH (09:53)
[2016-11-22] MEDS: ENOXAPARIN 40 MG/0.4 ML SYG SC SCH (09:54)
--- NOTE | 2016-11-22 13:00 | DS ---
Date/Time of Note Date/Time of Note DATE: 11/22/16 TIME: 12:51 Discharge Summary Admission/Discharge Info Admit Date/Time November 09, 2016 at 02:30 Discharge Date/Time Final Diagnosis 1. Atypical chest pain. Stable, no ACS, follow up with cardiology 2. Slurred speech, resolved. Nonfocal. Probable Seroquel related-from his friend. 3. Nonadherence 4. Chr PAD. Sp stent. Cont Plavix; Pletal. Tobacco cessation, follow up0 with vascular surgery 5. Chr CAD;old [place]? Cont rfm/ on asa and statin, follow up with cardiology 6. Tobacco abuse, advise to quit 7. Possible COPD/occupational lung disease, stable 8. Chronic dyslipidemia 9. Hep C. follow up with PCP 10. Onychomycosis 11. Adjustment dis. Sp consult w behavioral health. Cleared for discharge. On Lexapro 12. Prediabetes 13. Foreign body left tibia? Asymptomatic/likely shrapnel related 14. Constipation. sp colonoscopy. 15. Hypothyroidism, started treatment Patient Condition: Stable Hx of Present Illness This is a 60-year-old male who is coming in today with multiple complaints of chest pain and and "strokes." Patient states that he has been having on and off chest pain of the left chest that comes and goes. He states is a sharp pain. Denies any diaphoresis or lower extremity swelling. Patient also states that from a friend he took Seroquel and after taking Seroquel he started noticing seeing mancera and apparently stated out a few times. He states that he thinks that he had multiple strokes. He states that he also has noticed some slurring of speech. Patient is currently living out of his car and does not like living there. Hospital Course This is a 60-year-old gentleman admitted with chest pain, atypical, no known aggravating or relieving factors. Ruled out for acute coronary syndrome by enzymes, EKG symptoms. He is stable and fit for discharge home. Risk factor modification. Reinforced the history of tobacco use and benefits of quitting smoking. The patient was seen by podiatry along with vascular surgery regarding peripheral artery disease. Imaging appeared to show a chronic ongoing progressive peripheral artery disease. Our best ____ is risk factor modification. He is on aspirin and Plavix. We have added Pletal. He was advised to quit smoking. He will follow up with Dr. Sanders outpatient. The patient had slurred speech. He was nonfocal. He took his friend's Seroquel. CT head and carotid US both unremarkable. He is getting aspirin and statin. Nonadherence. Chronic dyslipidemia, on statin. Hepatitis C. No encephalopathy, etc. Possible chronic obstructive pulmonary disease, auscultation of lung disease. Doubt the patient will be adherent to any followups to get even PFTs done to step up therapy. I did reinforce the benefits of quitting smoking to help prevent cancer. Tobacco abuse, status post counseling, offered a patch. Onychomycosis on oral therapy. Adjustment disorder. The patient was seen by a behavioral health in consultation. He has been optimized and cleared for discharge. I added Lexapro. Prediabetes. Potentially foreign body, left tibia. This is asymptomatic. I think he had some sort of shrapnel injury in the past. Constipation. Started therapy. Possible subclinical hypothyroidism with constipation and occasional sinus bradycardia. I will start treatment. Home Meds Active Scripts Levothyroxine Sodium* (Levothyroxine Sodium*) 25 Mcg Tablet, 25 MCG PO DAILY@06 for 30 Days, #30 TAB 1 Refill Prov:ALEX MORATAYA MD 11/16/16 Polyethylene Glycol* (Miralax*) 17 Gm Powd.pack, 17 GM PO BID for 14 Days, #14 2 Refills Prov:ALEX MORATAYA MD 11/16/16 Famotidine* (Famotidine*) 20 Mg Tablet, 20 MG PO HS for 14 Days, #14 TAB Prov:ALEX MORATAYA MD 11/16/16 Escitalopram Oxalate* (Escitalopram Oxalate*) 10 Mg Tablet, 5 MG PO DAILY for 30 Days, #30 TAB Prov:ALEX MORATAYA MD 11/16/16 Aspirin* (Aspirin* EC) 81 Mg Tablet.dr 81 MG PO DAILY for 30 Days, #30 Prov:ALEX MORATAYA MD 11/16/16 Acetaminophen (MAPAP) 325 Mg Tablet, 650 MG PO Q6H Y for PAIN LEVEL 1-3 OR FEVER for 1 Day, #1 TAB Prov:ALEX MORATAYA MD 11/16/16 Cilostazol* (Cilostazol*) 100 Mg Tablet, 100 MG PO BID for 30 Days, #60 TAB Prov:ALEX MORATAYA MD 11/16/16 Terbinafine Hcl* (Terbinafine Hcl*) 250 Mg Tablet, 250 MG PO BID for 10 Days, # 20 TAB 1 Refill Prov:ALEX MORATAYA MD 11/16/16 [Nicotine (14 Mg/24 Hr)] 1 PATCH PATCH No Conflict Check, 1 PATCH TRANSDERM DAILY for 1 Day, #1 2 Refills Prov:ALEX MORATAYA MD 11/16/16 Naproxen* (Naproxen*) 500 Mg Tablet, 500 MG PO BID Y for PAIN, #30 TAB Prov:AURORA MIKE MD 10/31/16 Reported Medications Metoprolol Tartrate* (Lopressor*) 25 Mg Tab, 25 MG PO DAILY, #30 TAB 11/08/16 Clopidogrel Bisulfate* (Clopidogrel Bisulfate*) 75 Mg Tablet, 75 MG PO DAILY, # 30 TAB 11/08/16 Atorvastatin* (Atorvastatin*) 40 Mg Tablet, 40 MG PO QHS, #30 TAB 11/08/16 Gabapentin* (Gabapentin*) 300 Mg Capsule, 300 MG PO TID, #90 CAP 11/08/16 Lisinopril* (Lisinopril*) 2.5 Mg Tablet, 2.5 MG PO DAILY, #30 TAB 11/08/16 Discontinued Reported Medications Hydrocodone/Acetaminophen ([place] 5-325 Tablet) 1 Each Tablet, 1 EACH PO Q6H for PAIN, TAB 11/08/16 Furosemide* (Furosemide*) 20 Mg Tablet, 20 MG PO BID, #30 TAB 11/08/16 Alprazolam* (Alprazolam*) 1 Mg Tablet, 1 MG PO Q8H Y for ANXIETY, TAB 11/08/16 Follow-up Plan caRDIOLOGY IN ONE WEEK pcp IN ONE WEEK vascular surgery in two weeks Primary Care Provider José Miguel Chacon Pending Labs Laboratory Tests Test 11/22/16 05:10 White Blood Count 9.510^3/ul (4.8-10.8) Red Blood Count 4.8210^6/ul (4.70-6.10) Hemoglobin 14.1g/dl (14.0-18.0) Hematocrit 41.6% (42.0-52.0) Mean Corpuscular Volume 86.3fl (82.0-101.0) Mean Corpuscular Hemoglobin 29.3pg (29.0-33.0) Mean Corpuscular Hemoglobin Concent 33.9g/dl (32.0-37.0) Red Cell Distribution Width 13.0% (11.5-14.5) Platelet Count 63860^3/UL (140-415) Mean Platelet Volume 9.7fl (7.4-10.4) Neutrophils % 54.0% (39.0-77.0) Lymphocytes % 32.6% (15.0-51.0) Monocytes % 9.1% (0.0-11.0) Eosinophils % 2.6% (0.0-7.0) Basophils % 0.7% (0.0-2.0) Nucleated Red Blood Cells % 0.0/100WBC (0.0-0.0) Neutrophils # 5.110^3/ul (1.6-7.5) Lymphocytes # 3.110^3/ul (0.8-2.9) Monocytes # 0.910^3/ul (0.3-0.9) Eosinophils # 0.310^3/ul (0.0-0.5) Basophils # 0.110^3/ul (0.0-0.1) Nucleated Red Blood Cells # 0.010^3/ul (0.0-0.0) Sodium Level 136mmol/L (135-144) Potassium Level 4.1mmol/L (3.5-5.1) Chloride Level 101mmol/L (97-110) Carbon Dioxide Level 27mmol/L (21-31) Anion Gap 12 (8-16) Blood Urea Nitrogen 18mg/dl (7-20) Creatinine 0.98mg/dl (0.61-1.24) Glucose Level 106mg/dl (70-220) Calcium Level 9.1mg/dl (8.4-10.2) Magnesium Level 2.1mg/dl (1.7-2.5) Total Bilirubin 0.1mg/dl (0.2-1.3) Direct Bilirubin 0.00mg/dl (0.00-0.20) Indirect Bilirubin 0.1mg/dl (0-1.1) Aspartate Amino Transf (AST/SGOT) 34IU/L (15-46) Alanine Aminotransferase (ALT/SGPT) 73IU/L (13-69) Alkaline Phosphatase 94IU/L (42-121) Total Protein 6.4g/dl (6.1-8.1) Albumin 3.4g/dl (3.3-4.9) Globulin 3.00g/dl (1.3-3.2) Albumin/Globulin Ratio 1.13 REYES GENAO MD November 22, 2016 13:00
--- NOTE | 2016-11-22 15:39 | PN ---
Date/Time of Note Date/Time of Note DATE: 11/22/16 TIME: 15:34 Assessment/Plan VTE Prophylaxis VTE Prophylaxis Intervention: SCD's Lines/Catheters IV [facility] Saline Lock Urinary Cath still in place: No Assessment/Plan Assessment/Plan Assessment * Constipation Colonoscopy Mild diverticulosis on the left side of the colon. . Moderate size internal hemorrhoids. * PAD * Atypical chest pain resolved Plan * stable for outpatient management Subjective 24 Hr Interval Summary Free Text/Dictation * Course reviewed with RN * patient seen and examined * No complaints Exam/Review of Systems Vital Signs Vitals Vital Signs Date Time Temp Pulse Resp B/P Pulse Ox O2 Delivery O2 Flow Rate FiO2 11/22/16 07:48 97.6 64 20 109/61 93 11/19/16 17:26 Room Air 11/19/16 16:46 10 Intake and Output 11/21/16 11/21/16 11/22/16 15:00 23:00 07:00 Intake Total 890 ml 320 ml Balance 890 ml 320 ml Exam Constitutional: alert, oriented Eyes: nl conjunctiva Neck: non-tender, supple Respiratory: clear to auscultation, normal air movement Cardiovascular: regular rate and rhythm Gastrointestinal: bowel sounds, nl liver, spleen, soft, No rebound or guarding Musculoskeletal: nl extremities to inspection, nl gait and stance 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: nl speech Skin: nl turgor, No rash or lesions Results Result Diagram: 11/22/16 0510 11/22/16 0510 Results 24 hrs Laboratory Tests Test 11/22/16 05:10 White Blood Count 9.5 Red Blood Count 4.82 Hemoglobin 14.1 Hematocrit 41.6 L Mean Corpuscular Volume 86.3 Mean Corpuscular Hemoglobin 29.3 Mean Corpuscular Hemoglobin Concent 33.9 Red Cell Distribution Width 13.0 Platelet Count 239 Mean Platelet Volume 9.7 Neutrophils % 54.0 Lymphocytes % 32.6 Monocytes % 9.1 Eosinophils % 2.6 Basophils % 0.7 Nucleated Red Blood Cells % 0.0 Neutrophils # 5.1 Lymphocytes # 3.1 H Monocytes # 0.9 Eosinophils # 0.3 Basophils # 0.1 Nucleated Red Blood Cells # 0.0 Sodium Level 136 Potassium Level 4.1 Chloride Level 101 Carbon Dioxide Level 27 Anion Gap 12 Blood Urea Nitrogen 18 Creatinine 0.98 Glucose Level 106 Calcium Level 9.1 Magnesium Level 2.1 Total Bilirubin 0.1 L Direct Bilirubin 0.00 Indirect Bilirubin 0.1 Aspartate Amino Transf (AST/SGOT) 34 Alanine Aminotransferase (ALT/SGPT) 73 H Alkaline Phosphatase 94 Total Protein 6.4 Albumin 3.4 Globulin 3.00 Albumin/Globulin Ratio 1.13 Medications Medications Current Medications Ondansetron HCl (Zofran Inj) 4 mg Q6H PRN IV NAUSEA AND/OR VOMITING; Start 11/09 at 05:30 Nitroglycerin (Nitroglycerin (Sl Tab) 0.4 Mg) 1 tab Q5M PRN SL CHEST PAIN Last administered on 11/09/16 18:27; Admin Dose 1 TAB; Start 11/09/16 at 05:30 Acetaminophen (Tylenol Tab) 650 mg Q6H PRN PO PAIN LEVEL 1-3 OR FEVER; Start at 05:30 Atorvastatin Calcium (Lipitor) 40 mg QHS PO Last administered on 11/21/16 20: 23; Admin Dose 40 MG; Start 11/09/16 at 21:00 Clopidogrel Bisulfate (plaVIX) 75 mg DAILY PO Last administered on 11/22/16 09 :51; Admin Dose 75 MG; Start 11/09/16 at 09:00 Gabapentin (Neurontin) 300 mg TID PO Last administered on 11/22/16 12:36; Admin Dose 300 MG; Start 11/09/16 at 09:00 Lisinopril (Zestril) 2.5 mg DAILY PO Last administered on 11/22/16 09:53; Admin Dose 2.5 MG; Start 11/09/16 at 09:00 Polyethylene Glycol (Miralax) 17 gm BID PO Last administered on 11/22/16 09:53 ; Admin Dose 17 GM; Start 11/10/16 at 21:00 Docusate Sodium (Colace) 200 mg BID PO Last administered on 11/22/16 09:51; Admin Dose 200 MG; Start 11/10/16 at 21:00 Bisacodyl (Dulcolax) 10 mg DAILY PRN PO CONSTIPATION Last administered on 20:59; Admin Dose 10 MG; Start 11/10/16 at 14:30 Aspirin (Halfprin) 81 mg DAILY PO Last administered on 11/22/16 09:52; Admin Dose 81 MG; Start 11/11/16 at 09:00 Cilostazol (Pletal) 100 mg BID PO Last administered on 11/22/16 09:52; Admin Dose 100 MG; Start 11/13/16 at 10:00 Famotidine (Pepcid) 20 mg HS PO Last administered on 11/21/16 20:24; Admin Dose 20 MG; Start 11/15/16 at 21:00 Nicotine (Nicoderm 14 Mg/ 24hr) 1 patch DAILY TRANSDERM Last administered on 09:53; Admin Dose 1 PATCH; Start 11/16/16 at 09:00 Levothyroxine Sodium (Synthroid) 25 mcg DAILY@06 PO Last administered on 05:45; Admin Dose 25 MCG; Start 11/15/16 at 12:00 Escitalopram Oxalate (Lexapro) 5 mg DAILY PO Last administered on 11/22/16 09: 52; Admin Dose 5 MG; Start 11/15/16 at 12:30 Acetaminophen/ Hydrocodone Bitart ([place] (5/325)) 1 tab Q4H PRN PO PAIN LEVEL 4 -7 Last administered on 11/22/16 10:05; Admin Dose 1 TAB; Start 11/16/16 at 21: 00 Enoxaparin Sodium (Lovenox) 40 mg DAILY SC Last administered on 11/22/16 09:54 ; Admin Dose 40 MG; Start 11/18/16 at 09:00; Status Future hold Morphine Sulfate (morphine) 2 mg Q8H PRN IV PAIN Last administered on 14:29; Admin Dose 2 MG; Start 11/20/16 at 15:00 Terbinafine HCl (Lamisil) 250 mg BID PO Last administered on 11/22/16 09:53; Admin Dose 250 MG; Start 11/21/16 at 12:00 Lactobacillus Acidophilus/ Rhamnosus (Culturelle) 1 cap BID PO Last administered on 11/22/16 09:51; Admin Dose 1 CAP; Start 11/21/16 at 21:00 KAREN PINO MD November 22, 2016 15:39
== END 2016-11-22 15:41 | disposition home or self-care (01) | DRG 313 ==
LOC: E/R 18:39 → MS4 11-09 02:30 → PP2 11-12 22:11
PROVIDERS: ADMIT Family Medicine; ATTEND Family Medicine
PROC: 0DJ08ZZ Inspection of Upper Intestinal Tract, Via Natural or Artificial Opening Endoscopic (ICD-10-PCS; principal; 2016-11-19 18:00)
DX: R07.89 Other chest pain (principal); I25.2 Old myocardial infarction; R45.851 Suicidal ideations; J44.9 Chronic obstructive pulmonary disease, unspecified; G62.9 Polyneuropathy, unspecified; F17.210 Nicotine dependence, cigarettes, uncomplicated; B35.1 Tinea unguium; R47.81 Slurred speech; F41.9 Anxiety disorder, unspecified; I70.213 Atherosclerosis of native arteries of extremities with intermittent claudication, bilateral legs; Z95.820 Peripheral vascular angioplasty status with implants and grafts; F43.21 Adjustment disorder with depressed mood; K59.00 Constipation, unspecified; F60.9 Personality disorder, unspecified; E78.5 Hyperlipidemia, unspecified; Z91.19 Patient's noncompliance with other medical treatment and regimen; R73.03 Prediabetes; E03.9 Hypothyroidism, unspecified; Z59.0 Homelessness; K57.90 Diverticulosis of intestine, part unspecified, without perforation or abscess without bleeding; K64.8 Other hemorrhoids; K59.09 Other constipation; B19.20 Unspecified viral hepatitis C without hepatic coma; Z18.89 Other specified retained foreign body fragments
CPT/HCPCS: 36415; 70450; 71010; 73610; 73630; 75635; 80048; 80053; 80061; 80307; 82550; 82553; 83036; 83735; 83880; 84100; 84443; 84484; 85025; 85610; 85730; 86803; 87340; 93005; 93306; 93880; 93922; 93971; 96372; 97116; 97162; 97530; J1644; J1650; J2270; J7030; Q9967

== ENCOUNTER 2016-12-24 14:32 | Inpatient (IN) | payer OTHER ==
[~2016-12-24] VITALS: Ht 176.5 cm; Wt 91.4 kg
[~2016-12-24 14:32] MED LIST changes: +ACET325T40 PO; +ASPI-664 PO; +ATOR40TA68 PO; +CILO100T PO; +CLOP75TA4 PO; +ESCI10TA48 PO; +FAMO20TA18 PO; +GABA300C16 PO; +LEVO25TA53 PO; +LISI2.5T59 PO; +METO-448 PO; +Nicotine (14 Mg/24 Hr) TRANSDERM; +POLY17PO6 PO; +TERB250T9 PO
[2016-12-24] MEDS ORDERED: NITROGLYCERIN (SL) 0.4 MG TAB SL PRN ×2 (17:00→21:00)
[2016-12-24] MEDS ORDERED: NITROGLYCERIN 2% 1 GM OINT PKT TD STA (17:00)
[2016-12-24] MEDS ORDERED: ASPIRIN 81 MG TAB PO STA (17:00)
[2016-12-24 17:28] LABS: ADD SCAN DIFF NO
[2016-12-24 17:30] LABS: BASOPHIL # 0.1 10^3/ul (0.0-0.1); BASOPHILS % 0.7 % (0.0-2.0); EOSINOPHILS # 0.2 10^3/ul (0.0-0.5); EOSINOPHILS % 1.7 % (0.0-7.0); HEMATOCRIT 45.9 % (42.0-52.0); HEMOGLOBIN 15.5 g/dl (14.0-18.0); LYMPHOCYTES # 2.4 10^3/ul (0.8-2.9); LYMPHOCYTES % 27.2 % (15.0-51.0); MEAN CORPUSCULAR HEMOGLOBIN 29.7 pg (29.0-33.0); MEAN CORPUSCULAR HGB CONC 33.8 g/dl (32.0-37.0); MEAN CORPUSCULAR VOLUME 87.9 fl (82.0-101.0); MONOCYTE # 0.8 10^3/ul (0.3-0.9); MONOCYTES % 9.7 % (0.0-11.0); NEUTROPHIL # 5.3 10^3/ul (1.6-7.5); NEUTROPHILS % 60.5 % (39.0-77.0); PLATELET COUNT 268 10^3/UL (140-415); RED BLOOD COUNT 5.22 10^6/ul (4.70-6.10); RED CELL DISTRIBUTION WIDTH 13.3 % (11.5-14.5); WHITE BLOOD COUNT 8.7 10^3/ul (4.8-10.8)
--- NOTE | 2016-12-24 17:32 | RADRPT ---
PROCEDURE: XR Chest. CLINICAL INDICATION: Chest pain. TECHNIQUE: Single frontal view. COMPARISON: 11/08/2016. FINDINGS: There is mild atelectasis at the lung bases. The lungs are otherwise clear. The heart size is normal. There is no pleural effusion. There is no pneumothorax. IMPRESSION: 1. Mild atelectasis at the lung bases. 2. Otherwise normal chest radiograph. RPTAT: QQ .Diogenes Wooten MD, MD Date Time Electronically viewed and signed by .Diogenes Wooten MD, MD on 12/24/2016 17:32 .R/
[2016-12-24] MEDS ORDERED: ATOR10TA65 PO (17:41)
[2016-12-24] MEDS ORDERED: ATOR40TA68 PO (17:41)
[2016-12-24 17:49] LABS: INR 0.94; PROTIME 12.6 Sec (12.2-14.2)
[2016-12-24 17:50] LABS: PARTIAL THROMBOPLASTIN TIME 30.4 Sec (25.0-35.0)
[2016-12-24 18:02] LABS: ANION GAP 14 (8-16); BLOOD UREA NITROGEN 17 mg/dl (7-20); CALCIUM 10.1 mg/dl (8.4-10.2); CARBON DIOXIDE 26 mmol/L (21-31); CHLORIDE 109 mmol/L (97-110); CREATININE 1.17 mg/dl (0.61-1.24); GLUCOSE 83 mg/dl (70-220); POTASSIUM 3.9 mmol/L (3.5-5.1); SODIUM 145 mmol/L (135-144)
[2016-12-24 18:14] LABS: TROPONIN-I < 0.012 ng/ml (0.00-0.12)
[2016-12-24] MEDS ORDERED: ONDANSETRON 4 MG INJ IV STA (18:48)
[2016-12-24] MEDS ORDERED: morphine 4 MG/ML VIAL IV STA (18:48)
[2016-12-24] MEDS ORDERED: ACETAMINOPHEN 325 MG TAB PO PRN (19:30)
[2016-12-24] MEDS ORDERED: ONDANSETRON 4 MG INJ IV PRN ×2 (19:30→21:00)
[2016-12-24] MEDS ORDERED: HYDROmorphONE 1 MG/ML SYG IV STA (20:55)
[2016-12-24] MEDS ORDERED: NACL 0.9% 3 ML SYG IV SCH (21:00)
--- NOTE | 2016-12-24 21:30 | ERA ---
ER Documentation Chief Complaint Date/Time DATE: 12/24/16 TIME: 21:25 Chief Complaint chest pain this morning, right leg and left arm pain x 2 days HPI Patient is a 60-year-old male with coronary disease who presents with chest pain and leg pain. He said that yesterday he saw Dr. Sanders from cardiology who wants to place stents in his right leg. The patient had 3 stents placed in his left leg already. He has chest pain and left arm pain that radiates down his left arm. The chest pain comes and goes but has become more frequent. Upon review of old medical records this is the patient's fourth visit since 2007. Review of the emergency department information exchange system shows visits to 2 separate emergency departments. ROS All systems reviewed and are negative except as per history of present illness. Medications Home Meds Active Scripts Levothyroxine Sodium* (Levothyroxine Sodium*) 25 Mcg Tablet, 25 MCG PO DAILY@06 for 30 Days, #30 TAB 1 Refill Prov:ALEX MORATAYA MD 11/16/16 Aspirin* (Aspirin* EC) 81 Mg Tablet., 81 MG PO DAILY for 30 Days, #30 Prov:ALEX MORATAYA MD 11/16/16 Reported Medications Atorvastatin* (Atorvastatin*) 40 Mg Tablet, 40 MG PO QAM, #30 TAB 12/24/16 Atorvastatin Calcium (Atorvastatin Calcium) 10 Mg Tablet, 10 MG PO QAM, #30 TAB 12/24/16 Clopidogrel Bisulfate* (Clopidogrel Bisulfate*) 75 Mg Tablet, 75 MG PO DAILY, # 30 TAB 11/08/16 Discontinued Reported Medications Metoprolol Tartrate* (Lopressor*) 25 Mg Tab, 25 MG PO DAILY, #30 TAB 11/08/16 Atorvastatin* (Atorvastatin*) 40 Mg Tablet, 40 MG PO QHS, #30 TAB 11/08/16 Gabapentin* (Gabapentin*) 300 Mg Capsule, 300 MG PO TID, #90 CAP 11/08/16 Lisinopril* (Lisinopril*) 2.5 Mg Tablet, 2.5 MG PO DAILY, #30 TAB 11/08/16 Discontinued Scripts Polyethylene Glycol* (Miralax*) 17 Gm Powd.pack, 17 GM PO BID for 14 Days, #14 2 Refills Prov:ALEX MORATAYA MD 11/16/16 Famotidine* (Famotidine*) 20 Mg Tablet, 20 MG PO HS for 14 Days, #14 TAB Prov:ALEX MORATAYA MD 11/16/16 Escitalopram Oxalate* (Escitalopram Oxalate*) 10 Mg Tablet, 5 MG PO DAILY for 30 Days, #30 TAB Prov:ALEX MORATAYA MD 11/16/16 Acetaminophen (MAPAP) 325 Mg Tablet, 650 MG PO Q6H Y for PAIN LEVEL 1-3 OR FEVER for 1 Day, #1 TAB Prov:ALEX MORATAYA MD 11/16/16 Cilostazol* (Cilostazol*) 100 Mg Tablet, 100 MG PO BID for 30 Days, #60 TAB Prov:ALEX MORATAYA MD 11/16/16 Terbinafine Hcl* (Terbinafine Hcl*) 250 Mg Tablet, 250 MG PO BID for 10 Days, # 20 TAB 1 Refill Prov:ALEX MORATAYA MD 11/16/16 [Nicotine (14 Mg/24 Hr)] 1 PATCH PATCH No Conflict Check, 1 PATCH TRANSDERM DAILY for 1 Day, #1 2 Refills Prov:ALEX MORATAYA MD 11/16/16 Naproxen* (Naproxen*) 500 Mg Tablet, 500 MG PO BID Y for PAIN, #30 TAB Prov:AURORA MIKE MD 10/31/16 Allergies Allergies: Coded Allergies: No Known Allergy (Unverified , 12/24/16) PMhx/Soc History of Surgery: No Anesthesia Reaction: No Hx 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 Disorder: Yes (NEUROPATHY) Hx Respiratory Disorders: Yes (COPD) Hx Cardiac Disorders: Yes (HTN) Hx Psychiatric Problems: Yes (Anxiety and PTSD) Hx Miscellaneous Medical Probl: Yes (see PT note) Hx Alcohol Use: Yes Hx Substance Use: No Hx Tobacco Use: Yes Smoking Status: Current every day smoker FmHx Family History: coronary disease Physical Exam Vitals Vital Signs Date Time Temp Pulse Resp B/P Pulse Ox O2 Delivery O2 Flow Rate FiO2 12/24/16 14:35 98.5 85 18 117/87 96 Physical Exam Const: No acute distress Head: Atraumatic Eyes: Normal Conjunctiva ENT: Normal External Ears, Nose and Mouth. Neck: Full range of motion..~ No meningismus. Resp: Clear to auscultation bilaterally Cardio: Regular rate and rhythm, no murmurs Abd: Soft, non tender, non distended. Normal bowel sounds Skin: No petechiae or rashes Back: No midline or flank tenderness Ext: No cyanosis, or edema Neur: Awake and alert Psych: Normal Mood and Affect Result Diagram: 12/24/16 1700 12/24/16 1700 Results 24 hrs Laboratory Tests Test 12/24/16 17:00 White Blood Count 8.710^3/ul Red Blood Count 5.2210^6/ul Hemoglobin 15.5g/dl Hematocrit 45.9% Mean Corpuscular Volume 87.9fl Mean Corpuscular Hemoglobin 29.7pg Mean Corpuscular Hemoglobin Concent 33.8g/dl Red Cell Distribution Width 13.3% Platelet Count 71970^3/UL Mean Platelet Volume 10.0fl Neutrophils % 60.5% Lymphocytes % 27.2% Monocytes % 9.7% Eosinophils % 1.7% Basophils % 0.7% Nucleated Red Blood Cells % 0.0/100WBC Neutrophils # 5.310^3/ul Lymphocytes # 2.410^3/ul Monocytes # 0.810^3/ul Eosinophils # 0.210^3/ul Basophils # 0.110^3/ul Nucleated Red Blood Cells # 0.010^3/ul Prothrombin Time 12.6Sec Prothrombin Time Ratio 1.0 INR International Normalized Ratio 0.94 Activated Partial Thromboplast Time 30.4Sec Sodium Level 145mmol/L Potassium Level 3.9mmol/L Chloride Level 109mmol/L Carbon Dioxide Level 26mmol/L Anion Gap 14 Blood Urea Nitrogen 17mg/dl Creatinine 1.17mg/dl Glucose Level 83mg/dl Calcium Level 10.1mg/dl Troponin I < 0.012ng/ml Current Medications Medications (Trade) Dose Ordered Sig/Briseida Route PRN Reason Start Time Stop Time Status Last Admin Dose Admin Aspirin (Aspirin) 162 mg ONCE STAT PO 12/24/16 17:00 12/24/16 17:01 DC 12/24/16 17:22 Nitroglycerin (Nitroglycerin 2% Oint) 1 inch ONCE STAT TD 12/24/16 17:00 12/24/16 17:02 DC 12/24/16 17:21 Nitroglycerin (Nitroglycerin (Sl Tab) 0.4 Mg) 1 tab Q5M UP TO 3 DOSES PRN SL CHEST PAIN 12/24/16 17:00 12/24/16 17:26 Morphine Sulfate (morphine) 4 mg ONCE STAT IV 12/24/16 18:48 12/24/16 18:49 DC 12/24/16 18:51 Ondansetron HCl (Zofran Inj) 4 mg ONCE STAT IV 12/24/16 18:48 12/24/16 18:49 DC 12/24/16 18:51 Ondansetron HCl (Zofran Inj) 4 mg ER BRIDGE PRN IV NAUSEA AND/OR VOMITING 12/24/16 19:30 12/25/16 19:29 Acetaminophen (Tylenol Tab) 650 mg ER BRIDGE PRN PO MILD PAIN/FEVER 12/24/16 19:30 12/25/16 19:29 Aspirin (Halfprin) 81 mg DAILY PO 12/25/16 09:00 Atorvastatin Calcium (Lipitor) 10 mg QAM PO 12/25/16 09:00 12/25/16 09:00 DC Atorvastatin Calcium (Lipitor) 40 mg QAM PO 12/25/16 09:00 Clopidogrel Bisulfate (plaVIX) 75 mg DAILY PO 12/25/16 09:00 Levothyroxine Sodium (Synthroid) 25 mcg DAILY@06 PO 12/25/16 06:00 Hydromorphone HCl (Dilaudid) 1 mg ONCE STAT IV 12/24/16 20:55 12/24/16 20:56 DC 12/24/16 21:09 IV Flush (NS 3 ml) 3 ml PER PROTOCOL IV 12/24/16 21:00 Ondansetron HCl (Zofran Inj) 4 mg Q6H PRN IV NAUSEA AND/OR VOMITING 12/24/16 21:00 Nitroglycerin (Nitroglycerin (Sl Tab) 0.4 Mg) 1 tab Q5M PRN SL CHEST PAIN 12/24/16 21:00 Morphine Sulfate (morphine) 2 mg Q4H PRN IV PAIN LEVEL 7-10 12/24/16 21:00 Famotidine (Pepcid Iv) 20 mg Q12 IV 12/24/16 21:00 Enoxaparin Sodium (Lovenox) 40 mg DAILY SC 12/25/16 09:00 Procedures/[facility] EKG read by me: Rate/Rhythm: Regular rate and rhythm at a normal rate Intervals: Normal Impression: No evidence of ischemia or arrhythmia Chest x-ray negative per radiology. Smoking Cessation Therapy: Pt. was lectured for greater than 3 minutes on the health risks of continued smoking and the benefits of cessation. Patient is a 60-year-old male with cardiac risk factors who presents with chest pain. He also has leg pain and peripheral vascular disease. The patient will need admission for further workup for his chest pain. He was given aspirin and nitroglycerin. He was given morphine as well. I doubt pneumonia, pneumothorax , pulmonary embolism, or aortic dissection. I spoke with Dr. Sanders who can see the patient if the patient is admitted to the hospital. Initially there was a thought that the patient may need to be transferred due to capitation but the patient was given authorization to admit to [facility]. He will be admitted to a telemetry bed under the care of the panel team per the financial team. Departure Diagnosis: Primary Impression: Chest pain Qualified Code: R07.9 - Chest pain, unspecified type Additional Impression: Peripheral vascular disease Condition: BRITTANY Mccoy MD Dec 24, 2016 21:30
[2016-12-24] MEDS: FAMOTIDINE 20 MG INJ IV SCH (21:44)
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
[2016-12-25] VITALS (12 sets, daily range): BP systolic 88–116; BP diastolic 53–76; PULSE 50–58; RESP 15–18; Ht 176.5 cm; Wt 91.4 kg
[2016-12-25 00:08] LABS: CREATINE KINASE 54 IU/L (23-200)
[2016-12-25 00:26] LABS: TROPONIN-I < 0.012 ng/ml (0.00-0.12)
[2016-12-25] MEDS: morphine 2 MG INJ IV PRN ×4 (00:46→20:17)
[2016-12-25] MEDS ORDERED: LAS20 PO (02:07)
[2016-12-25] MEDS ORDERED: ALPR1TAB7 PO (02:07)
[2016-12-25] MEDS ORDERED: TRAM50TA2 PO (02:07)
[2016-12-25] MEDS ORDERED: PANT40TA4 PO (02:07)
[2016-12-25] MEDS ORDERED: CILO100T PO (02:07)
[2016-12-25] MEDS ORDERED: HYDR-906 PO (02:07)
[2016-12-25] MEDS ORDERED: TERB250T46 PO (02:07)
[2016-12-25] MEDS ORDERED: GABA300C16 PO (02:07)
[2016-12-25] MEDS ORDERED: NAPR550T3 PO (02:07)
[2016-12-25] MEDS ORDERED: NICO1PAT6 TD (02:07)
[2016-12-25] MEDS ORDERED: ESCI5TAB PO (02:07)
[2016-12-25] MEDS ORDERED: METO-448 PO (02:07)
[2016-12-25] MEDS ORDERED: LISI2.5T59 PO (02:07)
[2016-12-25] MEDS ORDERED: ALPRAZOLAM 1 MG TAB PO PRN ×2 (03:30→19:00)
[2016-12-25] MEDS: PANTOPRAZOLE (EC) 40 MG TAB PO SCH (06:00)
[2016-12-25] MEDS: FUROSEMIDE 20 MG TAB PO SCH (06:01)
[2016-12-25] MEDS: LEVOTHYROXINE 25 MCG TAB PO SCH (06:01)
[2016-12-25 06:27] LABS: ADD SCAN DIFF NO
[2016-12-25 06:33] LABS: BASOPHIL # 0.1 10^3/ul (0.0-0.1); BASOPHILS % 0.9 % (0.0-2.0); EOSINOPHILS # 0.2 10^3/ul (0.0-0.5); EOSINOPHILS % 2.5 % (0.0-7.0); HEMATOCRIT 41.7 % (42.0-52.0); HEMOGLOBIN 13.8 g/dl (14.0-18.0); LYMPHOCYTES # 2.8 10^3/ul (0.8-2.9); MEAN CORPUSCULAR HEMOGLOBIN 29.4 pg (29.0-33.0); MEAN CORPUSCULAR HGB CONC 33.1 g/dl (32.0-37.0); MEAN CORPUSCULAR VOLUME 88.9 fl (82.0-101.0); MEAN PLATELET VOLUME 9.9 fl (7.4-10.4); MONOCYTE # 0.8 10^3/ul (0.3-0.9); MONOCYTES % 10.4 % (0.0-11.0); NEUTROPHIL # 3.8 10^3/ul (1.6-7.5); NEUTROPHILS % 49.9 % (39.0-77.0); PLATELET COUNT 203 10^3/UL (140-415); RED BLOOD COUNT 4.69 10^6/ul (4.70-6.10); RED CELL DISTRIBUTION WIDTH 13.5 % (11.5-14.5); WHITE BLOOD COUNT 7.7 10^3/ul (4.8-10.8)
[2016-12-25 07:21] LABS: CREATINE KINASE 49 IU/L (23-200)
[2016-12-25 07:22] LABS: BILIRUBIN,INDIRECT 0.2 mg/dl (0-1.1); BILIRUBIN,TOTAL 0.2 mg/dl (0.2-1.3); CALCIUM 9.2 mg/dl (8.4-10.2); CREATININE 0.86 mg/dl (0.61-1.24); POTASSIUM 4.2 mmol/L (3.5-5.1)
[2016-12-25 07:23] LABS: ALBUMIN 3.5 g/dl (3.3-4.9); ALBUMIN/GLOBULIN RATIO 1.66; TOTAL PROTEIN 5.6 g/dl (6.1-8.1)
[2016-12-25 07:40] LABS: CK-MB 0.88 ng/ml (0.0-2.4); TROPONIN-I < 0.012 ng/ml (0.00-0.12)
[2016-12-25] MEDS: METOPROLOL 25 MG TAB PO SCH (08:54)
[2016-12-25] MEDS: TERBINAFINE 250 MG TAB PO SCH (08:55)
[2016-12-25] MEDS: ASPIRIN (EC) 81 MG TAB PO SCH (08:55)
[2016-12-25] MEDS: CILOSTAZOL 100 MG TAB PO SCH (08:56)
[2016-12-25] MEDS: CLOPIDOGREL 75 MG TAB PO SCH (08:56)
[2016-12-25] MEDS: ESCITALOPRAM 10 MG TAB PO SCH (08:56)
[2016-12-25] MEDS: FAMOTIDINE 20 MG INJ IV SCH ×2 (08:57→20:16)
[2016-12-25] MEDS: GABAPENTIN 300 MG CAP PO SCH ×3 (08:57→20:16)
[2016-12-25] MEDS: ATORVASTATIN 40 MG TAB PO SCH (08:57)
[2016-12-25] MEDS ORDERED: ATORVASTATIN 10 MG TAB PO SCH (09:00)
[2016-12-25] MEDS ORDERED: ASPIRIN (EC) 81 MG TAB PO SCH (09:00)
[2016-12-25] MEDS: LISINOPRIL 5 MG TAB PO SCH (09:00)
[2016-12-25] MEDS: ENOXAPARIN 40 MG/0.4 ML SYG SC SCH (09:15)
--- NOTE | 2016-12-25 13:22 | CONS ---
Date/Time of Note Date/Time of Note DATE: 12/25/16 TIME: 13:10 Assessment/Plan Assessment/Plan Problems: (1) Peripheral neuropathy (2) Peripheral vascular disease Status: Acute (3) Chest pain Status: Acute Qualifiers: Qualified Code: R07.9 - Chest pain, unspecified type (4) Peripheral vascular disease with claudication Status: Chronic (5) Tobacco abuse disorder Status: Chronic (6) Hyperlipidemia Status: Chronic (7) Personality disorder in adult Status: Chronic (8) Constipation Status: Chronic (9) Onychomycosis Status: Chronic (10) Hepatitis C antibody positive in blood Status: Acute Additional Assessment/Plan PAD Resting leg pain Urgen Art Duplex Lovenox Consdier leg angio plan for tuesday keep him in the hospital Consultation Date/Type/Reason Admit Date/Time Date of Consultation: Dec 25, 2016 Reason for Consultation Leg pain and aching, CP Hx of Present Illness Pt is 61 year old M who has severe PAD s/p Revascularization of his Left leg s/ p SHIFT COORDINATOR and stent Zilver PTx. came in yestereseay with resting leg pain. also has atypical CP Constitutional: no complaints Past Medical History Medical History: angina Past Surgical History Past Surgical Hx: no surgical history Social History Alcohol Use: none Smoking Status: Current every day smoker Drug Use: none Exam/Review of Systems Vital Signs Vitals Vital Signs Date Time Temp Pulse Resp B/P Pulse Ox O2 Delivery O2 Flow Rate FiO2 12/25/16 12:09 56 12/25/16 11:19 98.1 18 109/64 96 Intake and Output 12/24/16 12/24/16 12/25/16 15:00 23:00 07:00 Intake Total 500 ml Output Total 200 ml Balance 300 ml Exam Constitutional: alert, oriented Psych: no complaints Head: normocephalic Eyes: nl conjunctiva ENMT: nl external ears & nose Respiratory: clear to auscultation Cardiovascular: regular rate and rhythm Gastrointestinal: soft Results Result Diagram: 12/25/16 0555 12/25/16 0555 Results 24 hrs Laboratory Tests Test 12/24/16 17:00 12/24/16 23:00 12/25/16 05:55 White Blood Count 8.7 7.7 Red Blood Count 5.22 4.69 L Hemoglobin 15.5 13.8 L Hematocrit 45.9 41.7 L Mean Corpuscular Volume 87.9 88.9 Mean Corpuscular Hemoglobin 29.7 29.4 Mean Corpuscular Hemoglobin Concent 33.8 33.1 Red Cell Distribution Width 13.3 13.5 Platelet Count 268 203 # Mean Platelet Volume 10.0 9.9 Neutrophils % 60.5 49.9 Lymphocytes % 27.2 36.0 Monocytes % 9.7 10.4 Eosinophils % 1.7 2.5 Basophils % 0.7 0.9 Nucleated Red Blood Cells % 0.0 0.0 Neutrophils # 5.3 3.8 Lymphocytes # 2.4 2.8 Monocytes # 0.8 0.8 Eosinophils # 0.2 0.2 Basophils # 0.1 0.1 Nucleated Red Blood Cells # 0.0 0.0 Prothrombin Time 12.6 Prothrombin Time Ratio 1.0 INR International Normalized Ratio 0.94 Activated Partial Thromboplast Time 30.4 Sodium Level 145 H 140 Potassium Level 3.9 4.2 Chloride Level 109 107 Carbon Dioxide Level 26 28 Anion Gap 14 9 # Blood Urea Nitrogen 17 14 Creatinine 1.17 0.86 Glucose Level 83 84 Calcium Level 10.1 9.2 Troponin I < 0.012 < 0.012 < 0.012 Creatine Kinase 54 49 Creatine Kinase Index 1.1 1.8 Creatinine Kinase MB (Mass) 0.60 0.88 Total Bilirubin 0.2 Direct Bilirubin 0.00 Indirect Bilirubin 0.2 Aspartate Amino Transf (AST/SGOT) 27 Alanine Aminotransferase (ALT/SGPT) 50 Alkaline Phosphatase 85 Total Protein 5.6 L Albumin 3.5 Globulin 2.10 Albumin/Globulin Ratio 1.66 Medications Medications Current Medications Atorvastatin Calcium (Lipitor) 40 mg QAM PO Last administered on 12/25/16 08: 57; Admin Dose 40 MG; Start 12/25/16 at 09:00 Clopidogrel Bisulfate (plaVIX) 75 mg DAILY PO Last administered on 12/25/16 08 :56; Admin Dose 75 MG; Start 12/25/16 at 09:00 Levothyroxine Sodium (Synthroid) 25 mcg DAILY@06 PO Last administered on 06:01; Admin Dose 25 MCG; Start 12/25/16 at 06:00 Ondansetron HCl (Zofran Inj) 4 mg Q6H PRN IV NAUSEA AND/OR VOMITING; Start at 21:00 Nitroglycerin (Nitroglycerin (Sl Tab) 0.4 Mg) 1 tab Q5M PRN SL CHEST PAIN; Start 12/24/16 at 21:00 Morphine Sulfate (morphine) 2 mg Q4H PRN IV PAIN LEVEL 7-10 Last administered on 12/25/16 09:00; Admin Dose 2 MG; Start 12/24/16 at 21:00 Famotidine (Pepcid Iv) 20 mg Q12 IV Last administered on 12/25/16 08:57; Admin Dose 20 MG; Start 12/24/16 at 21:00 Enoxaparin Sodium (Lovenox) 40 mg DAILY SC Last administered on 12/25/16 09:15 ; Admin Dose 40 MG; Start 12/25/16 at 09:00 Alprazolam (Xanax) 1 mg TID PRN PO ANXIETY; Start 12/25/16 at 03:30 Cilostazol (Pletal) 100 mg DAILY PO Last administered on 12/25/16 08:56; Admin Dose 100 MG; Start 12/25/16 at 09:00 Escitalopram Oxalate (Lexapro) 5 mg DAILY PO Last administered on 12/25/16 08: 56; Admin Dose 5 MG; Start 12/25/16 at 09:00 Furosemide (Lasix) 20 mg DAILY@06 PO Last administered on 12/25/16 06:01; Admin Dose 20 MG; Start 12/25/16 at 06:00 Gabapentin (Neurontin) 300 mg TID PO Last administered on 12/25/16 08:57; Admin Dose 300 MG; Start 12/25/16 at 09:00 Lisinopril (Zestril) 2.5 mg DAILY PO ; Start 12/25/16 at 09:00 Metoprolol Tartrate (Lopressor) 25 mg DAILY PO ; Start 12/25/16 at 09:00 Pantoprazole (Protonix Tab) 40 mg DAILY@06 PO Last administered on 12/25/16 06 :00; Admin Dose 40 MG; Start 12/25/16 at 06:00 Terbinafine HCl (Lamisil) 250 mg DAILY PO Last administered on 12/25/16 08:55 ; Admin Dose 250 MG; Start 12/25/16 at 09:00 Tramadol HCl (Ultram) 50 mg Q6H PRN PO PAIN; Start 12/25/16 at 03:30 Aspirin (Halfprin) 81 mg DAILY PO Last administered on 12/25/16t 08:55; Admin Dose 81 MG; Start 12/25/16 at 09:00 BELKIS WOLFE MD Dec 25, 2016 13:21
--- NOTE | 2016-12-25 19:13 | RADRPT ---
PROCEDURE: US Lower extremity Arteries. CLINICAL INDICATION: Resting leg pain TECHNIQUE: Multiple longitudinal and transverse images of the bilateral lower extremity arteries w ere obtained with mancera scale and color Doppler imaging. COMPARISON: 11/10/2016 FINDINGS: Location Right CFA81 cm/sec MMTF624 cm/sec IVOB949 cm/sec DSFA69 cm/sec POP76 cm/sec PTA59 cm/sec DPA26 cm/sec SEA DPA 1.0 Location Left CFA78 cm/sec PSFA81 cm/sec [id number] cm/sec DSFA74 cm/sec POP38 cm/sec DPT42 cm/sec DPA26 cm/sec SEA DPA 1.1 Bilateral calcified arteries are present. A stent is noted in the left superficial femoral artery. T riphasic flow is present throughout the right lower extremity from the common femoral through poplit eal arteries. There is mild stenosis in the mid right superficial femoral artery. There is monophas ic flow in the right posterior tibial and dorsalis pedis arteries.. The left common and superficial femoral has triphasic flow. There is a focal high-grade stenosis in the mid left superficial femora l artery. There is biphasic flow in the left popliteal artery. There is monophasic flow in the lef t posterior tibial and dorsalis pedis arteries. IMPRESSION: 1. Mild diffuse plaque formation. Left superficial femoral artery stent. 2, Non hemodynamically stenosis in the mid right superficial femoral artery. 3. Focal high-grade stenosis in the mid left superficial femoral artery with intact distal runoff. RPTAT: HMVK .Augusto Heath MD, MD Date Time Electronically viewed and signed by .Augusto Heath MD, MD on 12/25/2016 17:51 .K/
--- NOTE | 2016-12-25 20:46 | PN ---
Date/Time of Note Date/Time of Note DATE: 12/25/16 TIME: 18:40 Assessment/Plan VTE Prophylaxis VTE Prophylaxis Intervention: LMWH Lines/Catheters IV Catheter Type (from Nrs): Saline Lock Urinary Cath still in place: No Assessment/Plan Assessment/Plan 1. Chest pain: Patient reports this being intermittent, no chest pain at this time. * Per manager laundry patient had normal stress test at [place] recently / we will obtain records 2. Lower extremity pain at rest with known severe peripheral vascular disease requiring intervention per java technical architect. * This is being scheduled for Tuesday 3. Polyneuropathy: Patient is not controlled on current dosing. We will switch to Lyrica. 4. Anxiety/adjustment disorder: Continue Lexapro and as needed benzodiazepine Continue supportive care. Subjective 24 Hr Interval Summary Free Text/Dictation patient has no CP now but says it's intermittent He continues to have shooting pain in L thigh, pain at Rest in L leg and shooting pain in L arm Exam/Review of Systems Vital Signs Vitals Vital Signs Date Time Temp Pulse Resp B/P Pulse Ox O2 Delivery O2 Flow Rate FiO2 12/25/16 16:10 58 12/25/16 15:33 98.1 18 88/57 95 Intake and Output 12/24/16 12/24/16 12/25/16 15:00 23:00 07:00 Intake Total 500 ml Output Total 200 ml Balance 300 ml Exam Constitutional: alert, oriented Head: lacerations (repaired with lee), normocephalic Eyes: PERRL ENMT: mucosa pink and moist Neck: supple Respiratory: clear to auscultation, diminished breath sounds Cardiovascular: regular rate and rhythm, No murmurs/extra sounds Gastrointestinal: bowel sounds, non-tender, soft 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: No focal weakness (however, gait not assessed) Results Result Diagram: 12/25/16 0555 12/25/16 0555 Results 24 hrs Laboratory Tests Test 12/24/16 23:00 12/25/16 05:55 Creatine Kinase 54 49 Creatine Kinase Index 1.1 1.8 Creatinine Kinase MB (Mass) 0.60 0.88 Troponin I < 0.012 < 0.012 White Blood Count 7.7 Red Blood Count 4.69 L Hemoglobin 13.8 L Hematocrit 41.7 L Mean Corpuscular Volume 88.9 Mean Corpuscular Hemoglobin 29.4 Mean Corpuscular Hemoglobin Concent 33.1 Red Cell Distribution Width 13.5 Platelet Count 203 # Mean Platelet Volume 9.9 Neutrophils % 49.9 Lymphocytes % 36.0 Monocytes % 10.4 Eosinophils % 2.5 Basophils % 0.9 Nucleated Red Blood Cells % 0.0 Neutrophils # 3.8 Lymphocytes # 2.8 Monocytes # 0.8 Eosinophils # 0.2 Basophils # 0.1 Nucleated Red Blood Cells # 0.0 Sodium Level 140 Potassium Level 4.2 Chloride Level 107 Carbon Dioxide Level 28 Anion Gap 9 # Blood Urea Nitrogen 14 Creatinine 0.86 Glucose Level 84 Calcium Level 9.2 Total Bilirubin 0.2 Direct Bilirubin 0.00 Indirect Bilirubin 0.2 Aspartate Amino Transf (AST/SGOT) 27 Alanine Aminotransferase (ALT/SGPT) 50 Alkaline Phosphatase 85 Total Protein 5.6 L Albumin 3.5 Globulin 2.10 Albumin/Globulin Ratio 1.66 Medications Medications Current Medications Atorvastatin Calcium (Lipitor) 40 mg QAM PO Last administered on 12/25/16 08: 57; Admin Dose 40 MG; Start 12/25/16 at 09:00 Clopidogrel Bisulfate (plaVIX) 75 mg DAILY PO Last administered on 12/25/16 08 :56; Admin Dose 75 MG; Start 12/25/16 at 09:00 Levothyroxine Sodium (Synthroid) 25 mcg DAILY@06 PO Last administered on 06:01; Admin Dose 25 MCG; Start 12/25/16 at 06:00 Ondansetron HCl (Zofran Inj) 4 mg Q6H PRN IV NAUSEA AND/OR VOMITING; Start at 21:00 Nitroglycerin (Nitroglycerin (Sl Tab) 0.4 Mg) 1 tab Q5M PRN SL CHEST PAIN; Start 12/24/16 at 21:00 Morphine Sulfate (morphine) 2 mg Q4H PRN IV PAIN LEVEL 7-10 Last administered on 12/25/16 13:15; Admin Dose 2 MG; Start 12/24/16 at 21:00 Famotidine (Pepcid Iv) 20 mg Q12 IV Last administered on 12/25/16 08:57; Admin Dose 20 MG; Start 12/24/16 at 21:00 Enoxaparin Sodium (Lovenox) 40 mg DAILY SC Last administered on 12/25/16 09:15 ; Admin Dose 40 MG; Start 12/25/16 at 09:00 Alprazolam (Xanax) 1 mg TID PRN PO ANXIETY; Start 12/25/16 at 03:30 Cilostazol (Pletal) 100 mg DAILY PO Last administered on 12/25/16 08:56; Admin Dose 100 MG; Start 12/25/16 at 09:00 Escitalopram Oxalate (Lexapro) 5 mg DAILY PO Last administered on 12/25/16 08: 56; Admin Dose 5 MG; Start 12/25/16 at 09:00 Furosemide (Lasix) 20 mg DAILY@06 PO Last administered on 12/25/16 06:01; Admin Dose 20 MG; Start 12/25/16 at 06:00 Gabapentin (Neurontin) 300 mg TID PO Last administered on 12/25/16 13:15; Admin Dose 300 MG; Start 12/25/16 at 09:00 Lisinopril (Zestril) 2.5 mg DAILY PO ; Start 12/25/16 at 09:00 Metoprolol Tartrate (Lopressor) 25 mg DAILY PO ; Start 12/25/16 at 09:00 Pantoprazole (Protonix Tab) 40 mg DAILY@06 PO Last administered on 12/25/16 06 :00; Admin Dose 40 MG; Start 12/25/16 at 06:00 Terbinafine HCl (Lamisil) 250 mg DAILY PO Last administered on 12/25/16 08:55 ; Admin Dose 250 MG; Start 12/25/16 at 09:00 Tramadol HCl (Ultram) 50 mg Q6H PRN PO PAIN; Start 12/25/16 at 03:30 Aspirin (Halfprin) 81 mg DAILY PO Last administered on 12/25/16 08:55; Admin Dose 81 MG; Start 12/25/16 at 09:00 CARMEN MAC Dec 25, 2016 18:47 Tramadol HCl (Ultram) 50 mg Q6H PRN PO PAIN; Start 12/25/16 at 03:30 Aspirin (Halfprin) 81 mg DAILY PO Last administered on 12/25/16 08:55; Admin Dose 81 MG; Start 12/25/16 at 09:00 CARMEN MAC Dec 25, 2016 18:47
[2016-12-25] MEDS ORDERED: GABAPENTIN 300 MG CAP PO SCH (21:00)
[2016-12-26] VITALS (13 sets, daily range): BP systolic 104–129; BP diastolic 60–82; PULSE 54–59; RESP 15–18
[2016-12-26] MEDS: morphine 2 MG INJ IV PRN ×5 (00:27→20:46)
[2016-12-26] MEDS: LORAZEPAM 0.5 MG TAB PO PRN (01:51)
[2016-12-26] MEDS: LEVOTHYROXINE 25 MCG TAB PO SCH (05:53)
[2016-12-26] MEDS: PANTOPRAZOLE (EC) 40 MG TAB PO SCH (05:53)
[2016-12-26] MEDS: FUROSEMIDE 20 MG TAB PO SCH (05:53)
[2016-12-26] MEDS: METOPROLOL 25 MG TAB PO SCH (09:00)
[2016-12-26] MEDS: ESCITALOPRAM 10 MG TAB PO SCH (09:58)
[2016-12-26] MEDS: traMADol 50 MG TAB PO PRN (09:58)
[2016-12-26] MEDS: TERBINAFINE 250 MG TAB PO SCH (09:58)
[2016-12-26] MEDS: ATORVASTATIN 40 MG TAB PO SCH (09:58)
[2016-12-26] MEDS: CILOSTAZOL 100 MG TAB PO SCH (09:58)
[2016-12-26] MEDS: FAMOTIDINE 20 MG INJ IV SCH ×2 (09:58→20:43)
[2016-12-26] MEDS: CLOPIDOGREL 75 MG TAB PO SCH (10:01)
[2016-12-26] MEDS: ASPIRIN (EC) 81 MG TAB PO SCH (10:01)
[2016-12-26] MEDS: LISINOPRIL 5 MG TAB PO SCH (10:01)
[2016-12-26] MEDS: GABAPENTIN 400 MG CAP PO SCH ×3 (10:01→20:43)
[2016-12-26] MEDS: ENOXAPARIN 40 MG/0.4 ML SYG SC SCH (10:43)
--- NOTE | 2016-12-26 10:54 | PN ---
Date/Time of Note Date/Time of Note DATE: 12/26/16 TIME: 10:51 Assessment/Plan VTE Prophylaxis VTE Prophylaxis Intervention: LMWH Lines/Catheters IV [facility] Saline Lock Urinary Cath still in place: No Assessment/Plan Assessment/Plan 1. Chest pain: * Patient reports this being intermittent, no chest pain at this time. * Per dowel pin man patient had normal stress test at [place] recently / records still pending * consider long acting nitrates. 2. Lower extremity pain at rest with known severe peripheral vascular disease * Focal high-grade stenosis in the mid left superficial femoral artery with intact distal runoff. * Intervention per Dr Sanders scheduled for Tuesday 3. Polyneuropathy: Patient is not controlled on current dosing. we increased Neurontin to 400mg tid 4. Anxiety/adjustment disorder: Continue Lexapro and as needed benzodiazepine 5. Chronic Hep C 6. Dyslipidemia 7. Chronic Onychomycosis 8. Homeless NOTE: Patient is on a low-dose enalapril and low-dose metoprolol. I am not sure of the indication for this. He does not seem to have significantly high blood pressure. He is also quite bradycardic hence I will be stopping the metoprolol, I would leave the enalapril for now. His echo showed a good ejection fraction without significant valvular deficits, but I do not have a urinalysis. If patient does have proteinuria he might benefit from PAULIE inhibitor therapy. Otherwise if not indicated for his peripheral vascular disease, will consider discontinuing this as well. Continue supportive care. Subjective 24 Hr Interval Summary Free Text/Dictation patient has not noticed any change in his pain Exam/Review of Systems Vital Signs Vitals Vital Signs Date Time Temp Pulse Resp B/P Pulse Ox O2 Delivery O2 Flow Rate FiO2 12/26/16 08:16 54 12/26/16 07:56 98.1 17 123/74 93 Intake and Output 12/25/16 12/25/16 12/26/16 15:00 23:00 07:00 Intake Total 950 ml 750 ml Output Total 1200 ml 925 ml Balance -250 ml -175 ml Exam Constitutional: alert, oriented Head: Atraumatic normocephalic Eyes: PERRL ENMT: mucosa pink and moist Neck: supple Respiratory: clear to auscultation, diminished breath sounds Cardiovascular: regular rate and rhythm, No murmurs/extra sounds Gastrointestinal: bowel sounds, non-tender, soft 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: No focal weakness Results Result Diagram: 12/25/1655412/25/16554 Medications Medications Current Medications Atorvastatin Calcium (Lipitor) 40 mg QAM PO Last administered on 12/26/16 09: 58; Admin Dose 40 MG; Start 12/25/16 at 09:00 Clopidogrel Bisulfate (plaVIX) 75 mg DAILY PO Last administered on 12/26/16 10 :01; Admin Dose 75 MG; Start 12/25/16 at 09:00 Levothyroxine Sodium (Synthroid) 25 mcg DAILY@06 PO Last administered on 05:53; Admin Dose 25 MCG; Start 12/25/16 at 06:00 Ondansetron HCl (Zofran Inj) 4 mg Q6H PRN IV NAUSEA AND/OR VOMITING; Start at 21:00 Nitroglycerin (Nitroglycerin (Sl Tab) 0.4 Mg) 1 tab Q5M PRN SL CHEST PAIN; Start 12/24/16 at 21:00 Morphine Sulfate (morphine) 2 mg Q4H PRN IV PAIN LEVEL 7-10 Last administered on 12/26/16 10:36; Admin Dose 2 MG; Start 12/24/16 at 21:00 Famotidine (Pepcid Iv) 20 mg Q12 IV Last administered on 12/26/16 09:58; Admin Dose 20 MG; Start 12/24/16 at 21:00 Enoxaparin Sodium (Lovenox) 40 mg DAILY SC Last administered on 12/26/16 10:43 ; Admin Dose 40 MG; Start 12/25/16 at 09:00 Cilostazol (Pletal) 100 mg DAILY PO Last administered on 12/26/16 09:58; Admin Dose 100 MG; Start 12/25/16 at 09:00 Escitalopram Oxalate (Lexapro) 5 mg DAILY PO Last administered on 12/26/16 09: 58; Admin Dose 5 MG; Start 12/25/16 at 09:00 Furosemide (Lasix) 20 mg DAILY@06 PO Last administered on 12/26/16 05:53; Admin Dose 20 MG; Start 12/25/16 at 06:00 Lisinopril (Zestril) 2.5 mg DAILY PO Last administered on 12/26/16 10:01; Admin Dose 2.5 MG; Start 12/25/16 at 09:00 Metoprolol Tartrate (Lopressor) 25 mg DAILY PO ; Start 12/25/16 at 09:00 Pantoprazole (Protonix Tab) 40 mg DAILY@06 PO Last administered on 12/26/16 05 :53; Admin Dose 40 MG; Start 12/25/16 at 06:00 Terbinafine HCl (Lamisil) 250 mg DAILY PO Last administered on 12/26/16 09:58 ; Admin Dose 250 MG; Start 12/25/16 at 09:00 Tramadol HCl (Ultram) 50 mg Q6H PRN PO PAIN Last administered on 12/26/16 09: 58; Admin Dose 50 MG; Start 12/25/16 at 03:30 Aspirin (Halfprin) 81 mg DAILY PO Last administered on 12/26/16 10:01; Admin Dose 81 MG; Start 12/25/16 at 09:00 Lorazepam (Ativan) 0.5 mg TID PRN PO AGITATION/ANXIETY Last administered on 01:51; Admin Dose 0.5 MG; Start 12/25/16 at 22:30 Gabapentin (Neurontin) 400 mg TID PO Last administered on 12/26/16 10:01; Admin Dose 400 MG; Start 12/26/16 at 09:00 Procedures Procedures PROCEDURE: US Lower extremity Arteries. CLINICAL INDICATION: Resting leg pain TECHNIQUE: Multiple longitudinal and transverse images of the bilateral lower extremity arteries were obtained with mancera scale and color Doppler imaging. COMPARISON: 11/10/2016 FINDINGS: Location Right HOME STEREO EQUIPMENT INSTALLER 81 cm/sec PSFA 114 cm/sec MSFA 142 cm/sec DSFA 69 cm/sec POP 76 cm/sec FRONT LOADER RESIDENTIAL DRIVER 59 cm/sec DPA 26 cm/sec SEA DPA 1.0 Location Left HOME STEREO EQUIPMENT INSTALLER 78 cm/sec PSFA 81 cm/sec MSFA 355 cm/sec DSFA 74 cm/sec POP 38 cm/sec DPT 42 cm/sec DPA 26 cm/sec SEA DPA 1.1 Bilateral calcified arteries are present. A stent is noted in the left superficial femoral artery. Triphasic flow is present throughout the right lower extremity from the common femoral through popliteal arteries. There is mild stenosis in the mid right superficial femoral artery. There is monophasic flow in the right posterior tibial and dorsalis pedis arteries.. The left common and superficial femoral has triphasic flow. There is a focal high-grade stenosis in the mid left superficial femoral artery. There is biphasic flow in the left popliteal artery. There is monophasic flow in the left posterior tibial and dorsalis pedis arteries. IMPRESSION: 1. Mild diffuse plaque formation. Left superficial femoral artery stent. 2, Non hemodynamically stenosis in the mid right superficial femoral artery. 3. Focal high-grade stenosis in the mid left superficial femoral artery with intact distal runoff. RPTAT: HMVK .Augusto Heath MD, Date Time Electronically viewed and signed by .Augusto Heath MD, MD on 12/25/2016 17:51 .K/ CC: BELKIS SANDERS MD, BOLATITO M. Dec 26, 2016 10:54
--- NOTE | 2016-12-26 11:30 | CONS ---
Date/Time of Note Date/Time of Note DATE: 12/26/16 TIME: 11:29 Consult Date/Type/Reason Admit Date/Time Dec 24, 2016 at 19:20 Initial Consult Date 12/25/16 Type of Consultation: Endovascular cardiology Objective Vital Signs Date Time Temp Pulse Resp B/P Pulse Ox O2 Delivery O2 Flow Rate FiO2 12/26/16 08:16 54 12/26/16 07:56 98.1 17 123/74 93 Intake and Output 12/25/16 12/25/16 12/26/16 15:00 23:00 07:00 Intake Total 950 ml 750 ml Output Total 1200 ml 925 ml Balance -250 ml -175 ml Results/Medications Result Diagram: 12/25/16 0555 12/25/16 0555 Medications Current Medications Atorvastatin Calcium (Lipitor) 40 mg QAM PO Last administered on 12/26/16 09: 58; Admin Dose 40 MG; Start 12/25/16 at 09:00 Clopidogrel Bisulfate (plaVIX) 75 mg DAILY PO Last administered on 12/26/16 10 :01; Admin Dose 75 MG; Start 12/25/16 at 09:00 Levothyroxine Sodium (Synthroid) 25 mcg DAILY@06 PO Last administered on 05:53; Admin Dose 25 MCG; Start 12/25/16 at 06:00 Ondansetron HCl (Zofran Inj) 4 mg Q6H PRN IV NAUSEA AND/OR VOMITING; Start at 21:00 Nitroglycerin (Nitroglycerin (Sl Tab) 0.4 Mg) 1 tab Q5M PRN SL CHEST PAIN; Start 12/24/16 at 21:00 Morphine Sulfate (morphine) 2 mg Q4H PRN IV PAIN LEVEL 7-10 Last administered on 12/26/16 10:36; Admin Dose 2 MG; Start 12/24/16 at 21:00 Famotidine (Pepcid Iv) 20 mg Q12 IV Last administered on 12/26/16 09:58; Admin Dose 20 MG; Start 12/24/16 at 21:00 Enoxaparin Sodium (Lovenox) 40 mg DAILY SC Last administered on 12/26/16 10:43 ; Admin Dose 40 MG; Start 12/25/16 at 09:00 Cilostazol (Pletal) 100 mg DAILY PO Last administered on 12/26/16 09:58; Admin Dose 100 MG; Start 12/25/16 at 09:00 Escitalopram Oxalate (Lexapro) 5 mg DAILY PO Last administered on 12/26/16 09: 58; Admin Dose 5 MG; Start 12/25/16 at 09:00 Furosemide (Lasix) 20 mg DAILY@06 PO Last administered on 12/26/16 05:53; Admin Dose 20 MG; Start 12/25/16 at 06:00 Lisinopril (Zestril) 2.5 mg DAILY PO Last administered on 12/26/16 10:01; Admin Dose 2.5 MG; Start 12/25/16 at 09:00 Pantoprazole (Protonix Tab) 40 mg DAILY@06 PO Last administered on 12/26/16 05 :53; Admin Dose 40 MG; Start 12/25/16 at 06:00 Terbinafine HCl (Lamisil) 250 mg DAILY PO Last administered on 12/26/16 09:58 ; Admin Dose 250 MG; Start 12/25/16 at 09:00 Tramadol HCl (Ultram) 50 mg Q6H PRN PO PAIN Last administered on 12/26/16 09: 58; Admin Dose 50 MG; Start 12/25/16 at 03:30 Aspirin (Halfprin) 81 mg DAILY PO Last administered on 12/26/16 10:01; Admin Dose 81 MG; Start 12/25/16 at 09:00 Lorazepam (Ativan) 0.5 mg TID PRN PO AGITATION/ANXIETY Last administered on 01:51; Admin Dose 0.5 MG; Start 12/25/16 at 22:30 Gabapentin (Neurontin) 400 mg TID PO Last administered on 12/26/16 10:01; Admin Dose 400 MG; Start 12/26/16 at 09:00 Assessment/Plan Chief Complaint/Hosp Course Pt is 61 year old M who has severe PAD s/p Revascularization of his Left leg s/ p LABOR RELATIONS SPECIALIST and stent Zilver PTx. came in yestereseay with resting leg pain. also has atypical CP Problems: (1) Peripheral neuropathy (2) Peripheral vascular disease (3) Chest pain (4) Peripheral vascular disease with claudication (5) Tobacco abuse disorder (6) Hyperlipidemia (7) Personality disorder in adult (8) Constipation (9) Onychomycosis (10) Hepatitis C antibody positive in blood Additional Assessment/Plan Pt has focal high grade stsenosis of left leg doing fine stable also has right leg pain with non obs stenosis. NPO past midnight consent for lower ext angio with interventions. plan to have angio tomorrow BELKIS WOLFE MD Dec 26, 2016 11:30
[2016-12-27] VITALS (11 sets, daily range): BP systolic 102–134; BP diastolic 61–70; PULSE 54–66; RESP 15–19
[2016-12-27] MEDS: PANTOPRAZOLE (EC) 40 MG TAB PO SCH (05:15)
[2016-12-27] MEDS: LEVOTHYROXINE 25 MCG TAB PO SCH (05:15)
[2016-12-27] MEDS: FUROSEMIDE 20 MG TAB PO SCH (05:16)
[2016-12-27] MEDS: morphine 2 MG INJ IV PRN ×5 (05:17→22:41)
[2016-12-27 06:20] LABS: ADD SCAN DIFF NO
[2016-12-27 06:27] LABS: BASOPHIL # 0.1 10^3/ul (0.0-0.1); BASOPHILS % 0.7 % (0.0-2.0); EOSINOPHILS # 0.2 10^3/ul (0.0-0.5); EOSINOPHILS % 2.4 % (0.0-7.0); LYMPHOCYTES # 2.2 10^3/ul (0.8-2.9); MEAN CORPUSCULAR HGB CONC 33.3 g/dl (32.0-37.0); MEAN PLATELET VOLUME 9.7 fl (7.4-10.4); MONOCYTE # 0.9 10^3/ul (0.3-0.9); MONOCYTES % 10.3 % (0.0-11.0); NEUTROPHIL # 4.9 10^3/ul (1.6-7.5); NEUTROPHILS % 59.2 % (39.0-77.0); PLATELET COUNT 248 10^3/UL (140-415); RED BLOOD COUNT 5.17 10^6/ul (4.70-6.10); RED CELL DISTRIBUTION WIDTH 13.1 % (11.5-14.5); WHITE BLOOD COUNT 8.3 10^3/ul (4.8-10.8)
[2016-12-27 06:57] LABS: CALCIUM 9.7 mg/dl (8.4-10.2); CREATININE 0.88 mg/dl (0.61-1.24); MAGNESIUM 2.1 mg/dl (1.7-2.5); POTASSIUM 4.2 mmol/L (3.5-5.1)
[2016-12-27 07:14] LABS: T3 UPTAKE 30.7 % (23.5-40.5)
[2016-12-27 07:28] LABS: THYROID STIMULATING HORMONE 1.99 MIU/L (0.465-4.680)
[2016-12-27] MEDS: GABAPENTIN 400 MG CAP PO SCH ×3 (08:41→20:37)
[2016-12-27] MEDS: ASPIRIN (EC) 81 MG TAB PO SCH (08:41)
[2016-12-27] MEDS: ATORVASTATIN 40 MG TAB PO SCH (08:41)
[2016-12-27] MEDS: CLOPIDOGREL 75 MG TAB PO SCH (08:41)
[2016-12-27] MEDS: ESCITALOPRAM 10 MG TAB PO SCH (08:41)
[2016-12-27] MEDS: CILOSTAZOL 100 MG TAB PO SCH (08:41)
[2016-12-27] MEDS: TERBINAFINE 250 MG TAB PO SCH (08:41)
[2016-12-27] MEDS: FAMOTIDINE 20 MG INJ IV SCH (08:42)
[2016-12-27] MEDS: LISINOPRIL 5 MG TAB PO SCH (08:42)
[2016-12-27] MEDS: ENOXAPARIN 40 MG/0.4 ML SYG SC SCH (09:28)
--- NOTE | 2016-12-27 13:23 | PN ---
Date/Time of Note Date/Time of Note DATE: 12/27/16 TIME: 13:19 Assessment/Plan VTE Prophylaxis VTE Prophylaxis Intervention: LMWH Lines/Catheters IV Catheter Type (from Nrs): Peripheral IV Urinary Cath still in place: No Assessment/Plan Chief Complaint/Hosp Course Assessment/Plan: 61 M with: 1. Chest pain: * Patient reports this being intermittent, no chest pain at this time. * Per qa tester patient had normal stress test at [place] recently / records still pending 2. Lower extremity pain at rest with known severe peripheral vascular disease * Focal high-grade stenosis in the mid left superficial femoral artery with intact distal runoff. * Intervention per Dr Sanders scheduled for today possibly (depending on insurance issue) - f/u 3. Polyneuropathy: continue Neurontin to 400mg tid 4. Anxiety/adjustment disorder: Continue Lexapro and as needed benzodiazepine 5. Chronic Hep C - monitor 6. Dyslipidemia - monitor 7. Chronic Onychomycosis - observe 8. Homeless - CM NOTE: F/U with CM on transfer possibility to [facility]. If not, f/u vas rec's regarding procedure for later today. Continue supportive care. Problems: Subjective 24 Hr Interval Summary Free Text/Dictation Pt awaiting possible transfer to another hospital (bc of insurance) - pt denies pain, awaiting possible vascular procedure later today as well. Exam/Review of Systems Vital Signs Vitals Vital Signs Date Time Temp Pulse Resp B/P Pulse Ox O2 Delivery O2 Flow Rate FiO2 12/27/16 12:16 61 12/27/16 11:19 98.5 19 132/64 93 Intake and Output 12/26/16 12/26/16 12/27/16 15:00 23:00 07:00 Intake Total 1000 ml 800 ml Output Total 1900 ml 750 ml Balance -900 ml 50 ml Exam Constitutional: alert, oriented Head: Atraumatic normocephalic Eyes: PERRL ENMT: mucosa pink and moist Neck: supple Respiratory: clear to auscultation, diminished breath sounds Cardiovascular: regular rate and rhythm, No murmurs/extra sounds Gastrointestinal: bowel sounds, non-tender, soft 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: No focal weakness Results Result Diagram: 12/27/16 0600 12/27/16 0600 Results 24 hrs Laboratory Tests Test 12/27/16 06:00 White Blood Count 8.3 Red Blood Count 5.17 Hemoglobin 15.0 Hematocrit 45.0 Mean Corpuscular Volume 87.0 Mean Corpuscular Hemoglobin 29.0 Mean Corpuscular Hemoglobin Concent 33.3 Red Cell Distribution Width 13.1 Platelet Count 248 # Mean Platelet Volume 9.7 Neutrophils % 59.2 Lymphocytes % 27.0 Monocytes % 10.3 Eosinophils % 2.4 Basophils % 0.7 Nucleated Red Blood Cells % 0.0 Neutrophils # 4.9 Lymphocytes # 2.2 Monocytes # 0.9 Eosinophils # 0.2 Basophils # 0.1 Nucleated Red Blood Cells # 0.0 Sodium Level 140 Potassium Level 4.2 Chloride Level 102 Carbon Dioxide Level 29 Anion Gap 13 Blood Urea Nitrogen 10 Creatinine 0.88 Glucose Level 87 Calcium Level 9.7 Magnesium Level 2.1 Thyroid Stimulating Hormone (TSH) 1.990 Free Thyroxine Index 2.67 Thyroxine (T4) 8.7 Triiodothyronine (T3) Uptake 30.7 Medications Medications Current Medications Atorvastatin Calcium (Lipitor) 40 mg QAM PO Last administered on 12/27/16 08: 41; Admin Dose 40 MG; Start 12/25/16 at 09:00 Clopidogrel Bisulfate (plaVIX) 75 mg DAILY PO Last administered on 12/27/16 08 :41; Admin Dose 75 MG; Start 12/25/16 at 09:00 Levothyroxine Sodium (Synthroid) 25 mcg DAILY@06 PO Last administered on 05:15; Admin Dose 25 MCG; Start 12/25/16 at 06:00 Ondansetron HCl (Zofran Inj) 4 mg Q6H PRN IV NAUSEA AND/OR VOMITING; Start at 21:00 Nitroglycerin (Nitroglycerin (Sl Tab) 0.4 Mg) 1 tab Q5M PRN SL CHEST PAIN; Start 12/24/16 at 21:00 Morphine Sulfate (morphine) 2 mg Q4H PRN IV PAIN LEVEL 7-10 Last administered on 12/27/16 09:28; Admin Dose 2 MG; Start 12/24/16 at 21:00 Famotidine (Pepcid Iv) 20 mg Q12 IV Last administered on 12/27/16 08:42; Admin Dose 20 MG; Start 12/24/16 at 21:00 Enoxaparin Sodium (Lovenox) 40 mg DAILY SC Last administered on 12/27/16 09:28 ; Admin Dose 40 MG; Start 12/25/16 at 09:00 Cilostazol (Pletal) 100 mg DAILY PO Last administered on 12/27/16 08:41; Admin Dose 100 MG; Start 12/25/16 at 09:00 Escitalopram Oxalate (Lexapro) 5 mg DAILY PO Last administered on 12/27/16 08: 41; Admin Dose 5 MG; Start 12/25/16 at 09:00 Furosemide (Lasix) 20 mg DAILY@06 PO Last administered on 12/27/16 05:16; Admin Dose 20 MG; Start 12/25/16 at 06:00 Lisinopril (Zestril) 2.5 mg DAILY PO Last administered on 12/27/16 08:42; Admin Dose 2.5 MG; Start 12/25/16 at 09:00; Status Future Hold Pantoprazole (Protonix Tab) 40 mg DAILY@06 PO Last administered on 12/27/16 05 :15; Admin Dose 40 MG; Start 12/25/16 at 06:00 Terbinafine HCl (Lamisil) 250 mg DAILY PO Last administered on 12/27/16 08:41 ; Admin Dose 250 MG; Start 12/25/16 at 09:00 Tramadol HCl (Ultram) 50 mg Q6H PRN PO PAIN Last administered on 12/26/16 09: 58; Admin Dose 50 MG; Start 12/25/16 at 03:30 Aspirin (Halfprin) 81 mg DAILY PO Last administered on 12/27/16 08:41; Admin Dose 81 MG; Start 12/25/16 at 09:00 Lorazepam (Ativan) 0.5 mg TID PRN PO AGITATION/ANXIETY Last administered on 01:51; Admin Dose 0.5 MG; Start 12/25/16 at 22:30 Gabapentin (Neurontin) 400 mg TID PO Last administered on 12/27/16 12:27; Admin Dose 400 MG; Start 12/26/16 at 09:00 GIOVANI PLUMMER Dec 27, 2016 13:23
[2016-12-28] VITALS (13 sets, daily range): BP systolic 101–121; BP diastolic 59–76; PULSE 51–69; RESP 17–19
[2016-12-28] MEDS: morphine 2 MG INJ IV PRN ×4 (04:03→18:19)
[2016-12-28] MEDS: PANTOPRAZOLE (EC) 40 MG TAB PO SCH (06:51)
[2016-12-28] MEDS: LEVOTHYROXINE 25 MCG TAB PO SCH (06:51)
[2016-12-28] MEDS: FUROSEMIDE 20 MG TAB PO SCH (06:51)
[2016-12-28 07:36] LABS: ADD SCAN DIFF NO
[2016-12-28 07:39] LABS: BASOPHIL # 0.1 10^3/ul (0.0-0.1); BASOPHILS % 0.7 % (0.0-2.0); EOSINOPHILS # 0.2 10^3/ul (0.0-0.5); EOSINOPHILS % 2.3 % (0.0-7.0); HEMATOCRIT 44.6 % (42.0-52.0); LYMPHOCYTES # 2.3 10^3/ul (0.8-2.9); MEAN CORPUSCULAR HEMOGLOBIN 29.4 pg (29.0-33.0); MEAN CORPUSCULAR HGB CONC 33.6 g/dl (32.0-37.0); MEAN CORPUSCULAR VOLUME 87.5 fl (82.0-101.0); MEAN PLATELET VOLUME 9.9 fl (7.4-10.4); MONOCYTE # 0.8 10^3/ul (0.3-0.9); MONOCYTES % 10.6 % (0.0-11.0); NEUTROPHIL # 4.2 10^3/ul (1.6-7.5); NEUTROPHILS % 55.9 % (39.0-77.0); PLATELET COUNT 243 10^3/UL (140-415); WHITE BLOOD COUNT 7.5 10^3/ul (4.8-10.8)
[2016-12-28 08:05] LABS: CALCIUM 9.8 mg/dl (8.4-10.2); CREATININE 0.96 mg/dl (0.61-1.24); POTASSIUM 4.4 mmol/L (3.5-5.1)
[2016-12-28] MEDS: GABAPENTIN 400 MG CAP PO SCH ×3 (08:25→21:00)
[2016-12-28] MEDS: ATORVASTATIN 40 MG TAB PO SCH (08:25)
[2016-12-28] MEDS: TERBINAFINE 250 MG TAB PO SCH (08:26)
[2016-12-28] MEDS: ASPIRIN (EC) 81 MG TAB PO SCH (08:26)
[2016-12-28] MEDS: CLOPIDOGREL 75 MG TAB PO SCH (08:26)
[2016-12-28] MEDS: ESCITALOPRAM 10 MG TAB PO SCH (08:26)
[2016-12-28] MEDS: CILOSTAZOL 100 MG TAB PO SCH (08:27)
[2016-12-28] MEDS: ENOXAPARIN 40 MG/0.4 ML SYG SC SCH (08:30)
--- NOTE | 2016-12-28 11:53 | PN ---
Date/Time of Note Date/Time of Note DATE: 12/28/16 TIME: 11:51 Assessment/Plan VTE Prophylaxis VTE Prophylaxis Intervention: LMWH Lines/Catheters IV Catheter Type (from Nrs): Saline Lock Urinary Cath still in place: No Assessment/Plan Chief Complaint/Hosp Course Assessment/Plan: 61 M with: 1. Chest pain: * Patient reports this being intermittent, no chest pain at this time. * Per teaching specialists patient had normal stress test at [place] recently 2. Lower extremity pain at rest with known severe peripheral vascular disease * Focal high-grade stenosis in the mid left superficial femoral artery with intact distal runoff. * Intervention per Dr Sanders scheduled in the next 1-2 days - f/u 3. Polyneuropathy: continue Neurontin to 400mg tid 4. Anxiety/adjustment disorder: Continue Lexapro and as needed benzodiazepine 5. Chronic Hep C - monitor 6. Dyslipidemia - monitor 7. Chronic Onychomycosis - observe 8. Homeless - CM NOTE: F/U vasc rec's regarding procedure. Continue supportive care. Problems: Subjective 24 Hr Interval Summary Free Text/Dictation Pt apparently now has authorization for vascular procedure (now pending), no acute events overnight otherwise. Exam/Review of Systems Vital Signs Vitals Vital Signs Date Time Temp Pulse Resp B/P Pulse Ox O2 Delivery O2 Flow Rate FiO2 12/28/16 11:23 97.4 63 19 114/66 95 Intake and Output 12/27/16 12/27/16 12/28/16 15:00 23:00 07:00 Intake Total 700 ml Output Total 2000 ml Balance -1300 ml Exam Constitutional: alert, oriented Head: Atraumatic normocephalic Eyes: PERRL ENMT: mucosa pink and moist Neck: supple Respiratory: clear to auscultation, diminished breath sounds Cardiovascular: regular rate and rhythm, No murmurs/extra sounds Gastrointestinal: bowel sounds, non-tender, soft 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: No focal weakness Results Result Diagram: 12/28/16 0635 12/28/16 0635 Results 24 hrs Laboratory Tests Test 12/28/16 06:35 White Blood Count 7.5 Red Blood Count 5.10 Hemoglobin 15.0 Hematocrit 44.6 Mean Corpuscular Volume 87.5 Mean Corpuscular Hemoglobin 29.4 Mean Corpuscular Hemoglobin Concent 33.6 Red Cell Distribution Width 13.0 Platelet Count 243 Mean Platelet Volume 9.9 Neutrophils % 55.9 Lymphocytes % 30.0 Monocytes % 10.6 Eosinophils % 2.3 Basophils % 0.7 Nucleated Red Blood Cells % 0.0 Neutrophils # 4.2 Lymphocytes # 2.3 Monocytes # 0.8 Eosinophils # 0.2 Basophils # 0.1 Nucleated Red Blood Cells # 0.0 Sodium Level 138 Potassium Level 4.4 Chloride Level 102 Carbon Dioxide Level 30 Anion Gap 10 Blood Urea Nitrogen 13 Creatinine 0.96 Glucose Level 88 Calcium Level 9.8 Medications Medications Current Medications Atorvastatin Calcium (Lipitor) 40 mg QAM PO Last administered on 12/28/16 08: 25; Admin Dose 40 MG; Start 12/25/16 at 09:00 Clopidogrel Bisulfate (plaVIX) 75 mg DAILY PO Last administered on 12/28/16 08 :26; Admin Dose 75 MG; Start 12/25/16 at 09:00 Levothyroxine Sodium (Synthroid) 25 mcg DAILY@06 PO Last administered on 06:51; Admin Dose 25 MCG; Start 12/25/16 at 06:00 Ondansetron HCl (Zofran Inj) 4 mg Q6H PRN IV NAUSEA AND/OR VOMITING; Start at 21:00 Nitroglycerin (Nitroglycerin (Sl Tab) 0.4 Mg) 1 tab Q5M PRN SL CHEST PAIN; Start 12/24/16 at 21:00 Morphine Sulfate (morphine) 2 mg Q4H PRN IV PAIN LEVEL 7-10 Last administered on 12/28/16 08:22; Admin Dose 2 MG; Start 12/24/16 at 21:00 Enoxaparin Sodium (Lovenox) 40 mg DAILY SC Last administered on 12/28/16 08:30 ; Admin Dose 40 MG; Start 12/25/16 at 09:00 Cilostazol (Pletal) 100 mg DAILY PO Last administered on 12/28/16 08:27; Admin Dose 100 MG; Start 12/25/16 at 09:00 Escitalopram Oxalate (Lexapro) 5 mg DAILY PO Last administered on 12/28/16 08: 26; Admin Dose 5 MG; Start 12/25/16 at 09:00 Furosemide (Lasix) 20 mg DAILY@06 PO Last administered on 12/28/16 06:51; Admin Dose 20 MG; Start 12/25/16 at 06:00 Lisinopril (Zestril) 2.5 mg DAILY PO Last administered on 12/27/16 08:42; Admin Dose 2.5 MG; Start 12/25/16 at 09:00; Status Future Hold Pantoprazole (Protonix Tab) 40 mg DAILY@06 PO Last administered on 12/28/16 06 :51; Admin Dose 40 MG; Start 12/25/16 at 06:00 Terbinafine HCl (Lamisil) 250 mg DAILY PO Last administered on 12/28/16 08:26 ; Admin Dose 250 MG; Start 12/25/16 at 09:00 Tramadol HCl (Ultram) 50 mg Q6H PRN PO PAIN Last administered on 12/26/16 09: 58; Admin Dose 50 MG; Start 12/25/16 at 03:30 Aspirin (Halfprin) 81 mg DAILY PO Last administered on 12/28/16 08:26; Admin Dose 81 MG; Start 12/25/16 at 09:00 Lorazepam (Ativan) 0.5 mg TID PRN PO AGITATION/ANXIETY Last administered on 01:51; Admin Dose 0.5 MG; Start 12/25/16 at 22:30 Gabapentin (Neurontin) 400 mg TID PO Last administered on 12/28/16 08:25; Admin Dose 400 MG; Start 12/26/16 at 09:00 GIOVANI PLUMMER Dec 28, 2016 11:53
[2016-12-28 20:29] LABS: ADD UMIC NO; UR BILIRUBIN (Dip) NEGATIVE (NEGATIVE); UR BLOOD (Dip) NEGATIVE (NEGATIVE); UR CLARITY SLIGHTLY CLOUDY (CLEAR); UR COLOR LT. YELLOW (YELLOW); UR GLUCOSE (Dip) NEGATIVE (NEGATIVE); UR KETONES (Dip) NEGATIVE (NEGATIVE); UR LEUKOCYTE ESTERASE (Dip) NEGATIVE (NEGATIVE); UR NITRITE (Dip) NEGATIVE (NEGATIVE); UR TOTAL PROTEIN (Dip) NEGATIVE (NEGATIVE); UR UROBILINOGEN (Dip) 0.2 E.U./dL (0.1-1.0)
[2016-12-29] VITALS (11 sets, daily range): BP systolic 114–135; BP diastolic 16–75; PULSE 54–71; RESP 17–18
[2016-12-29] MEDS: morphine 2 MG INJ IV PRN ×5 (00:31→20:27)
[2016-12-29] MEDS: LEVOTHYROXINE 25 MCG TAB PO SCH (05:54)
[2016-12-29] MEDS: PANTOPRAZOLE (EC) 40 MG TAB PO SCH (05:54)
[2016-12-29] MEDS: FUROSEMIDE 20 MG TAB PO SCH (05:54)
[2016-12-29 07:41] LABS: ADD SCAN DIFF NO
[2016-12-29 07:53] LABS: BASOPHIL # 0.1 10^3/ul (0.0-0.1); BASOPHILS % 0.6 % (0.0-2.0); EOSINOPHILS # 0.2 10^3/ul (0.0-0.5); EOSINOPHILS % 1.8 % (0.0-7.0); HEMATOCRIT 44.5 % (42.0-52.0); HEMOGLOBIN 15.3 g/dl (14.0-18.0); LYMPHOCYTES % 22.4 % (15.0-51.0); MEAN CORPUSCULAR HEMOGLOBIN 29.9 pg (29.0-33.0); MEAN CORPUSCULAR HGB CONC 34.4 g/dl (32.0-37.0); MEAN CORPUSCULAR VOLUME 86.9 fl (82.0-101.0); MEAN PLATELET VOLUME 10.1 fl (7.4-10.4); MONOCYTE # 0.9 10^3/ul (0.3-0.9); MONOCYTES % 9.8 % (0.0-11.0); NEUTROPHIL # 5.9 10^3/ul (1.6-7.5); PLATELET COUNT 248 10^3/UL (140-415); RED BLOOD COUNT 5.12 10^6/ul (4.70-6.10); RED CELL DISTRIBUTION WIDTH 12.9 % (11.5-14.5)
[2016-12-29 08:14] LABS: CALCIUM 9.4 mg/dl (8.4-10.2); CREATININE 0.97 mg/dl (0.61-1.24); POTASSIUM 4.2 mmol/L (3.5-5.1)
[2016-12-29] MEDS: ASPIRIN (EC) 81 MG TAB PO SCH (08:47)
[2016-12-29] MEDS: TERBINAFINE 250 MG TAB PO SCH (08:47)
[2016-12-29] MEDS: ATORVASTATIN 40 MG TAB PO SCH (08:47)
[2016-12-29] MEDS: CILOSTAZOL 100 MG TAB PO SCH (08:47)
[2016-12-29] MEDS: ESCITALOPRAM 10 MG TAB PO SCH (08:47)
[2016-12-29] MEDS: CLOPIDOGREL 75 MG TAB PO SCH (08:47)
[2016-12-29] MEDS: GABAPENTIN 400 MG CAP PO SCH ×3 (08:47→20:27)
[2016-12-29] MEDS: ENOXAPARIN 40 MG/0.4 ML SYG SC SCH (08:51)
--- NOTE | 2016-12-29 09:52 | PQ ---
Date/Time of Note Date/Time of Note DATE: 12/29/16 TIME: 09:47 Physician Query Documentation Clarification Dear Dr. Cao, A review of the medical record found a need for documentation clarification. 1. Chest pain: * Patient reports this being intermittent, no chest pain at this time. * Per underwriting account representative patient had normal stress test at [place] recently 4. Anxiety/adjustment disorder: Continue Lexapro and as needed benzodiazepine Meds: Morphine SO4 2 mg IV PRN Ativan 0.5 mg p.o. Please clarify a suspected etiology of Chest pain (if known) being treated. ( ) Chest pain 2/2 anxiety disorder ( ) Chest pain 2/2 costochondritis ( ) Chest pain 2/2 unclear etiology ( ) Others ( ) unable to determine Please provide your response by clicking edit document, making your choice ( x ), click ok/save and finally click sign. You may also document your response on your progress notes. Thank you for your time. With appreciation, Noe Antonio RN, BSN, CCS, CCDS [employer] Research Scientist Health Information Management, CDI and Coding Services [phone] Room # 1525 - [address]~ [address] NOE ANTONIO Dec 29, 2016 09:52
--- NOTE | 2016-12-29 13:26 | PN ---
Date/Time of Note Date/Time of Note DATE: 12/29/16 TIME: 13:23 Assessment/Plan VTE Prophylaxis VTE Prophylaxis Intervention: LMWH Lines/Catheters IV Catheter Type (from Nrs): Saline Lock Urinary Cath still in place: No Assessment/Plan Chief Complaint/Hosp Course Assessment/Plan: 61 M with: 1. Chest pain: * no chest pain at this time - monitor * Per housekeeping supervisor patient had normal stress test at [place] recently 2. Lower extremity pain at rest with known severe peripheral vascular disease * Focal high-grade stenosis in the mid left superficial femoral artery with intact distal runoff. * Intervention per Dr Sanders will be scheduled now as an outpt (sec to no laborer driver time available in house for the next few days). 3. Polyneuropathy: continue Neurontin to 400mg tid 4. Anxiety/adjustment disorder: Continue Lexapro and as needed benzodiazepine 5. Chronic Hep C - monitor 6. Dyslipidemia - monitor 7. Chronic Onychomycosis - observe 8. Homeless - CM - looking for placement options. PT eval pending as well. Continue supportive care. Problems: Subjective 24 Hr Interval Summary Free Text/Dictation Pt complaining of some LE weakness. Not able to get vascular procedure performed by vas team (no laborer driver time available for the next few days). Exam/Review of Systems Vital Signs Vitals Vital Signs Date Time Temp Pulse Resp B/P Pulse Ox O2 Delivery O2 Flow Rate FiO2 12/29/16 12:12 56 12/29/16 11:12 98.0 18 114/72 96 Intake and Output 12/28/16 12/28/16 12/29/16 15:00 23:00 07:00 Intake Total 1200 ml 400 ml Output Total 550 ml 700 ml 1150 ml Balance -550 ml 500 ml -750 ml Exam Constitutional: alert, oriented Head: Atraumatic normocephalic Eyes: PERRL ENMT: mucosa pink and moist Neck: supple Respiratory: clear to auscultation, diminished breath sounds Cardiovascular: regular rate and rhythm, No murmurs/extra sounds Gastrointestinal: bowel sounds, non-tender, soft 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: no focal deficits Results Result Diagram: 12/29/16 0555 12/29/16 0555 Results 24 hrs Laboratory Tests Test 12/29/16 05:55 White Blood Count 9.0 Red Blood Count 5.12 Hemoglobin 15.3 Hematocrit 44.5 Mean Corpuscular Volume 86.9 Mean Corpuscular Hemoglobin 29.9 Mean Corpuscular Hemoglobin Concent 34.4 Red Cell Distribution Width 12.9 Platelet Count 248 Mean Platelet Volume 10.1 Neutrophils % 65.0 Lymphocytes % 22.4 Monocytes % 9.8 Eosinophils % 1.8 Basophils % 0.6 Nucleated Red Blood Cells % 0.0 Neutrophils # 5.9 Lymphocytes # 2.0 Monocytes # 0.9 Eosinophils # 0.2 Basophils # 0.1 Nucleated Red Blood Cells # 0.0 Sodium Level 136 Potassium Level 4.2 Chloride Level 100 Carbon Dioxide Level 30 Anion Gap 10 Blood Urea Nitrogen 19 Creatinine 0.97 Glucose Level 82 Calcium Level 9.4 Medications Medications Current Medications Atorvastatin Calcium (Lipitor) 40 mg QAM PO Last administered on 12/29/16 08: 47; Admin Dose 40 MG; Start 12/25/16 at 09:00 Clopidogrel Bisulfate (plaVIX) 75 mg DAILY PO Last administered on 12/29/16 08 :47; Admin Dose 75 MG; Start 12/25/16 at 09:00 Levothyroxine Sodium (Synthroid) 25 mcg DAILY@06 PO Last administered on 05:54; Admin Dose 25 MCG; Start 12/25/16 at 06:00 Ondansetron HCl (Zofran Inj) 4 mg Q6H PRN IV NAUSEA AND/OR VOMITING; Start at 21:00 Nitroglycerin (Nitroglycerin (Sl Tab) 0.4 Mg) 1 tab Q5M PRN SL CHEST PAIN; Start 12/24/16 at 21:00 Morphine Sulfate (morphine) 2 mg Q4H PRN IV PAIN LEVEL 7-10 Last administered on 12/29/16 10:58; Admin Dose 2 MG; Start 12/24/16 at 21:00 Enoxaparin Sodium (Lovenox) 40 mg DAILY SC Last administered on 12/29/16 08:51 ; Admin Dose 40 MG; Start 12/25/16 at 09:00 Cilostazol (Pletal) 100 mg DAILY PO Last administered on 12/29/16 08:47; Admin Dose 100 MG; Start 12/25/16 at 09:00 Escitalopram Oxalate (Lexapro) 5 mg DAILY PO Last administered on 12/29/16 08: 47; Admin Dose 5 MG; Start 12/25/16 at 09:00 Furosemide (Lasix) 20 mg DAILY@06 PO Last administered on 12/29/16 05:54; Admin Dose 20 MG; Start 12/25/16 at 06:00 Lisinopril (Zestril) 2.5 mg DAILY PO Last administered on 12/27/16 08:42; Admin Dose 2.5 MG; Start 12/25/16 at 09:00; Status Future Hold Pantoprazole (Protonix Tab) 40 mg DAILY@06 PO Last administered on 12/29/16 05 :54; Admin Dose 40 MG; Start 12/25/16 at 06:00 Terbinafine HCl (Lamisil) 250 mg DAILY PO Last administered on 12/29/16 08:47 ; Admin Dose 250 MG; Start 12/25/16 at 09:00 Tramadol HCl (Ultram) 50 mg Q6H PRN PO PAIN Last administered on 12/26/16 09: 58; Admin Dose 50 MG; Start 12/25/16 at 03:30 Aspirin (Halfprin) 81 mg DAILY PO Last administered on 12/29/16 08:47; Admin Dose 81 MG; Start 12/25/16 at 09:00 Lorazepam (Ativan) 0.5 mg TID PRN PO AGITATION/ANXIETY Last administered on 01:51; Admin Dose 0.5 MG; Start 12/25/16 at 22:30 Gabapentin (Neurontin) 400 mg TID PO Last administered on 12/29/16 08:47; Admin Dose 400 MG; Start 12/26/16 at 09:00 GIOVANI PLUMMER Dec 29, 2016 13:26
[2016-12-29] MEDS: LORAZEPAM 0.5 MG TAB PO PRN (18:57)
--- NOTE | 2016-12-29 19:36 | PSY ---
Date/Time of Note Date/Time of Note DATE: 12/29/16 TIME: 22:32 Psychiatric Subjective Eval Consent Pt consented to telemedicine: Yes Subjective Evaluation Patient location: inpatient Chief Complaint: chest pain this morning, right leg and left arm pain x 2 days History of present illness HPI: The patient is a 61 yo male admitted for chest pain workup. He has severe peripheral vascular dz which is worsening. In this context, 2 days ago he made statement to medical/nursing staff that "maybe I should just end it." Psych was consulted. Pt has no psych hx except one past visit many years ago. Took xanax prn at one time. Reports that with his substantial physical morbidity adn limitations, and that he is now homeless and sometimes cannot even find a place to shower, he is very depressed, does often think of suicide and not being alive. Denies wanting to do it now bu [place]ina thinks of having no reason to live , nto wanting to be alive, as now. Denies psychosis or drug use currently. Past Psych Hx: no admits or suicide, past extensive briana guse PMHx: SC, CVA, peripheral vasc dz Meds: see medical chart [facility]eless [facility] MSE: substantial PMR, slow speech, monotone, cooperative, depressed, blunted affect, organized, no delusions no avh + passive SI ImP 61 yo male with MDD, passive si -pt requests voluntary psych admit, which is reasonable given his substantial depression, psychosocial circumstances, medical condition isolation, and passive SI, which place him at higher risk for active si -will defer treatmetn rec to inpatient team Medical history Problems Medical Problems: (1) Chest pain Status: Acute (2) Chest pain Status: Resolved (3) Chest pain Status: Acute (4) Constipation Status: Chronic (5) Hepatitis C antibody positive in blood Status: Acute (6) Hyperlipidemia Status: Chronic (7) Onychomycosis Status: Chronic (8) Peripheral vascular disease Status: Acute (9) Peripheral vascular disease with claudication Status: Chronic (10) Personality disorder in adult Status: Chronic (11) Tobacco abuse disorder Status: Chronic Allergies: Coded Allergies: No Known Drug Allergies (Verified Allergy, Unknown, 12/25/16) Psychiatric Objective Eval Mental Status Examination: Laboratory Results Laboratory Tests Test 12/28/16 04:20 12/28/16 06:35 12/29/16 05:55 Urine Color LT. YELLOW Urine Clarity SLIGHTLY CLOUDY Urine pH Urine Specific [place] Urine Ketones NEGATIVE Urine Nitrite NEGATIVE Urine Bilirubin NEGATIVE Urine Urobilinogen 0.2 E.U./dL Urine Leukocyte Esterase NEGATIVE Urine Hemoglobin NEGATIVE Urine Glucose NEGATIVE% Urine Total Protein NEGATIVE White Blood Count 7.510^3/ul 9.010^3/ul Red Blood Count 5.1010^6/ul 5.1210^6/ul Hemoglobin 15.0g/dl 15.3g/dl Hematocrit 44.6% 44.5% Mean Corpuscular Volume 87.5fl 86.9fl Mean Corpuscular Hemoglobin 29.4pg 29.9pg Mean Corpuscular Hemoglobin Concent 33.6g/dl 34.4g/dl Red Cell Distribution Width 13.0% 12.9% Platelet Count 94663^3/UL 86329^3/UL Mean Platelet Volume 9.9fl 10.1fl Neutrophils % 55.9% 65.0% Lymphocytes % 30.0% 22.4% Monocytes % 10.6% 9.8% Eosinophils % 2.3% 1.8% Basophils % 0.7% 0.6% Nucleated Red Blood Cells % 0.0/100WBC 0.0/100WBC Neutrophils # 4.210^3/ul 5.910^3/ul Lymphocytes # 2.310^3/ul 2.010^3/ul Monocytes # 0.810^3/ul 0.910^3/ul Eosinophils # 0.210^3/ul 0.210^3/ul Basophils # 0.110^3/ul 0.110^3/ul Nucleated Red Blood Cells # 0.010^3/ul 0.010^3/ul Sodium Level 138mmol/L 136mmol/L Potassium Level 4.4mmol/L 4.2mmol/L Chloride Level 102mmol/L 100mmol/L Carbon Dioxide Level 30mmol/L 30mmol/L Anion Gap 10 10 Blood Urea Nitrogen 13mg/dl 19mg/dl Creatinine 0.96mg/dl 0.97mg/dl Glucose Level 88mg/dl 82mg/dl Calcium Level 9.8mg/dl 9.4mg/dl OSMAN COONEY Dec 29, 2016 19:36
[2016-12-30] VITALS (12 sets, daily range): BP systolic 100–127; BP diastolic 64–76; PULSE 56–69; RESP 18–20
[2016-12-30] MEDS: morphine 2 MG INJ IV PRN ×3 (01:09→13:05)
[2016-12-30] MEDS: traMADol 50 MG TAB PO PRN (04:16)
[2016-12-30] MEDS: LEVOTHYROXINE 25 MCG TAB PO SCH (05:00)
[2016-12-30] MEDS: FUROSEMIDE 20 MG TAB PO SCH (05:00)
[2016-12-30] MEDS: PANTOPRAZOLE (EC) 40 MG TAB PO SCH (05:00)
--- NOTE | 2016-12-30 06:52 | PQ ---
Date/Time of Note Date/Time of Note DATE: 12/30/16 TIME: 06:[address] Cao, A review of the medical record found a need for documentation clarification. progress note--- 1. Chest pain: * Patient reports this being intermittent, no chest pain at this time. * Per sales representative raw fibers patient had normal stress test at [place] recently 4. Anxiety/adjustment disorder: Continue Lexapro and as needed benzodiazepine Meds: Morphine SO4 2 mg IV PRN Ativan 0.5 mg p.o. Please clarify a suspected etiology of Chest pain (if known) being treated. ( ) Chest pain 2/2 anxiety disorder ( ) Chest pain 2/2 costochondritis ( ) Chest pain 2/2 unclear etiology ( ) Others ( ) unable to determine Please provide your response by clicking edit document, making your choice ( x ), click ok/save and finally click sign. You may also document your response on your progress notes. Thank you for your time. With appreciation, Noe Antonio RN, BSN, CCS, CCDS Clinical Sound Controller Health Information Management, CDI and Coding Services [phone] Room # 1525 - [address]~ [address] NOE ANTONIO Dec 30, 2016 06:52
[2016-12-30] MEDS: ASPIRIN (EC) 81 MG TAB PO SCH (09:26)
[2016-12-30] MEDS: ESCITALOPRAM 10 MG TAB PO SCH (09:26)
[2016-12-30] MEDS: ATORVASTATIN 40 MG TAB PO SCH (09:26)
[2016-12-30] MEDS: TERBINAFINE 250 MG TAB PO SCH (09:26)
[2016-12-30] MEDS: GABAPENTIN 400 MG CAP PO SCH ×3 (09:26→21:15)
[2016-12-30] MEDS: CILOSTAZOL 100 MG TAB PO SCH (09:26)
[2016-12-30] MEDS: CLOPIDOGREL 75 MG TAB PO SCH (09:26)
[2016-12-30] MEDS: ENOXAPARIN 40 MG/0.4 ML SYG SC SCH (09:37)
--- NOTE | 2016-12-30 10:59 | PDOCDIS ---
Discharge Instructions CONDITION Patient Condition: Stable HOME CARE INSTRUCTIONS: Special Diet: Cardiac GIOVANI PLUMMER Dec 30, 2016 10:59
--- NOTE | 2016-12-30 12:46 | DS ---
DATE OF ADMISSION: 12/26/2016 DATE OF DISCHARGE: 12/30/2016 This is a 61-year-old male originally admitted on 12/24/2014, being discharged to [facility] on 12/30/2016. HOSPITAL COURSE: The patient came in with chest pain and some ____ of slurred speech. He was admit negin to telemetry floor. He ruled out for acute coronary syndrome as his troponins were negative x3. He is also found with peripheral vascular disease and continued on statin, Plavix and cilostazol. Over the course of his hospital stay, the patient was seen by the vascular surgery team. He underw ent an ultrasound of the lower extremities, arterial ultrasound that showed mild diffuse plaque form ation, left superficial femoral artery stent in place, non-hemodynamically significant stenosis in t he mid right superficial femoral artery, but there was focal high-grade stenosis in the mid left sup erficial femoral artery with intact distal runoff. The vascular surgeon was initially going to perf orm a vascular procedure for this left-sided blockage; however, there was difficulty in getting the time available in the pathology laboratory aide to do the procedure. In the meantime, the vascular surgeon stated t hat this could be done as an outpatient, as the patient was clinically improved. He was also, [facility]. evaluated by tele psychiatry team because of a prior history of anxiety and depression and he wa s recommended to go to a psych care facility because of his substantial depression and psychosocial circumstances, including being homeless, and that will need to be followed as an outpatient as well at some point. The patient is medically stable to be transferred and discharged today. MEDICATIONS: He will be sent to [facility] with the following medications: 1. Aspirin 81 mg daily. 2. Lipitor 40 mg daily. 3. Pletal 100 mg daily. 4. Plavix 75 mg daily. 5. Lovenox 40 mg subcu daily. 6. Lexapro 5 mg daily. 7. Lasix 20 mg p.o. daily. 8. Neurontin 400 mg t.i.d. 9. Synthroid 25 mcg daily. 10. Lisinopril 2.5 mg daily. 11. Ativan 0.5 mg p.o. q. 8h. p.r.n. 12. Morphine 2 mg IV q. 6 hours p.r.n. 13. Nitroglycerin 1 tablet sublingual every 5 minutes p.r.n. 14. Zofran 4 mg IV q. 6h. p.r.n. 15. Protonix 40 mg daily. 16. Lamisil 250 mg daily. 17. Tramadol 50 mg q. 6 p.r.n. He will follow with primary care doctor in the clinic in the next 1 to 2 weeks. FINAL DIAGNOSES: 1. Chest pain, ruled out for acute coronary syndrome, possibly musculoskeletal in origin. 2. Focal high grade stenosis in the mid left superficial femoral artery with intact distal runoff _ ___ signs of peripheral vascular disease. Awaiting outpatient vascular procedure. 3. Polyneuropathy on Neurontin. 4. Anxiety adjustment disorder. Recommend to continue on antidepressant and possible treatment at an outside psychiatric facility. 5. Chronic hepatitis C. 6. High cholesterol. 7. Chronic onychomycosis. 8. 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 Time spent with patient 45 minutes. Dictated By: GIOVANI GARCIA Conf#: [id number] DID#: [id number]
[2016-12-30] MEDS: HYDROCODONE/APAP (5/325) TAB PO PRN (17:15)
[2016-12-30] MEDS: LORAZEPAM 0.5 MG TAB PO PRN (21:22)
[2016-12-31] VITALS (10 sets, daily range): BP systolic 113–129; BP diastolic 59–76; PULSE 56–70; RESP 18–20
[2016-12-31] MEDS: HYDROCODONE/APAP (5/325) TAB PO PRN ×2 (03:55→09:09)
[2016-12-31] MEDS: LORAZEPAM 0.5 MG TAB PO PRN (04:06)
[2016-12-31] MEDS: PANTOPRAZOLE (EC) 40 MG TAB PO SCH (05:54)
[2016-12-31] MEDS: LEVOTHYROXINE 25 MCG TAB PO SCH (05:54)
[2016-12-31] MEDS: FUROSEMIDE 20 MG TAB PO SCH (05:54)
[2016-12-31] MEDS: GABAPENTIN 400 MG CAP PO SCH ×2 (09:09→12:54)
[2016-12-31] MEDS: ESCITALOPRAM 10 MG TAB PO SCH (09:09)
[2016-12-31] MEDS: CLOPIDOGREL 75 MG TAB PO SCH (09:09)
[2016-12-31] MEDS: TERBINAFINE 250 MG TAB PO SCH (09:09)
[2016-12-31] MEDS: ASPIRIN (EC) 81 MG TAB PO SCH (09:09)
[2016-12-31] MEDS: ATORVASTATIN 40 MG TAB PO SCH (09:09)
[2016-12-31] MEDS: CILOSTAZOL 100 MG TAB PO SCH (09:09)
[2016-12-31] MEDS: ENOXAPARIN 40 MG/0.4 ML SYG SC SCH (09:13)
--- NOTE | 2016-12-31 14:07 | DS ---
Date/Time of Note Date/Time of Note DATE: 12/31/16 TIME: 14:05 Discharge Summary Admission/Discharge Info Admit Date/Time Dec 26, 2016 at 14:21 Discharge Date/Time Discharge Diagnosis 1. Chest pain, ruled out for acute coronary syndrome, possibly musculoskeletal in origin. 2. Focal high grade stenosis in the mid left superficial femoral artery with intact distal runoff ____ signs of peripheral vascular disease. Awaiting outpatient vascular procedure. 3. Polyneuropathy on Neurontin. 4. Anxiety adjustment disorder. Recommend to continue on antidepressant and possible treatment at an outside psychiatric facility. 5. Chronic hepatitis C. 6. High cholesterol. 7. Chronic onychomycosis. 8. 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 Time spent with patient 45 minutes. Hx of Present Illness Chief complaint: chest pain and leg pain. Patient is a 60-year-old male with coronary disease who presents with chest pain and leg pain. He said that yesterday he saw Dr. Sanders from cardiology who wants to place stents in his right leg. The patient had 3 stents placed in his left leg already. He has chest pain and left arm pain that radiates down his left arm. The chest pain comes and goes but has become more frequent. Upon review of old medical records this is the patient's fourth visit since 2007. Review of the emergency department information exchange system shows visits to 2 separate emergency departments. allergy: nkda meds: see mar Hospital Course HOSPITAL COURSE: The patient came in with chest pain and some slurred speech. He was admitted to telemetry floor. He ruled out for acute coronary syndrome as his troponins were negative x3. He is also found with peripheral vascular disease and continued on statin, Plavix and cilostazol. Over the course of his hospital stay, the patient was seen by the vascular surgery team. He underwent an ultrasound of the lower extremities, arterial ultrasound that showed mild diffuse plaque formation, left superficial femoral artery stent in place, non- hemodynamically significant stenosis in the mid right superficial femoral artery , but there was focal high-grade stenosis in the mid left superficial femoral artery with intact distal runoff. The vascular surgeon was initially going to perform a vascular procedure for this left-sided blockage; however, there was difficulty in getting the time available in the director of cardiac cath lab to do the procedure. In the meantime, the vascular surgeon stated that this could be done as an outpatient, as the patient was clinically improved. He was also, however. evaluated by tele psychiatry team because of a prior history of anxiety and depression and he was recommended to go to a psych care facility because of his substantial depression and psychosocial circumstances, including being homeless , and that will need to be followed as an outpatient as well at some point. The patient is medically stable to be transferred and discharged today. MEDICATIONS: [facility] with the following medications: 1. Aspirin 81 mg daily. 2. Lipitor 40 mg daily. 3. Pletal 100 mg daily. 4. Plavix 75 mg daily. 5. Lovenox 40 mg subcu daily. 6. Lexapro 5 mg daily. 7. Lasix 20 mg p.o. daily. 8. Neurontin 400 mg t.i.d. 9. Synthroid 25 mcg daily. 10. Lisinopril 2.5 mg daily. 11. Ativan 0.5 mg p.o. q. 8h. p.r.n. 12. Morphine 2 mg IV q. 6 hours p.r.n. 13. Nitroglycerin 1 tablet sublingual every 5 minutes p.r.n. 14. Zofran 4 mg IV q. 6h. p.r.n. 15. Protonix 40 mg daily. 16. Lamisil 250 mg daily. 17. Tramadol 50 mg q. 6 p.r.n. He will follow with primary care doctor in the clinic in the next 1 to 2 weeks. Home Meds Active Scripts Levothyroxine Sodium* (Levothyroxine Sodium*) 25 Mcg Tablet, 25 MCG PO DAILY@06 for 30 Days, #30 TAB 1 Refill Prov:ALEX MORATAYA MD 11/16/16 Aspirin* (Aspirin* EC) 81 Mg Tablet.dr, 81 MG PO DAILY for 30 Days, #30 Prov:ALEX MORATAYA MD 11/16/16 Reported Medications Pantoprazole (Protonix) 40 Mg Tabec, 40 MG PO DAILY, TAB 12/25/16 Cilostazol* (Cilostazol*) 100 Mg Tablet, 100 MG PO DAILY, TAB 12/25/16 Tramadol HCl (Tramadol HCl) 50 Mg Tablet, 50 MG PO Q6H Y for PAIN, #120 TAB 12/25/16 Furosemide (Lasix) 20 Mg Tab, 20 MG PO DAILY, TAB 12/25/16 Nicotine* (Nicotine* Patch) 21 mg/day Patch, 1 EACH TD DAILY, PATCH 12/25/16 Naproxen* (Naproxen*) 550 Mg Tablet, 550 MG PO DAILY, TAB 12/25/16 Alprazolam* (Alprazolam*) 1 Mg Tablet, 1 MG PO TID Y for ANXIETY, TAB 12/25/16 Hydrocodone/Acetaminophen ([place] 5-325 Tablet) 1 Each Tablet, 1 EACH PO Q6 Y for PAIN, TAB 12/25/16 Lisinopril* (Lisinopril*) 2.5 Mg Tablet, 2.5 MG PO DAILY, #30 TAB 12/25/16 Metoprolol Tartrate* (Lopressor*) 25 Mg Tab, 25 MG PO DAILY, #60 TAB 12/25/16 Terbinafine* (Lamisil*) 250 Mg Tablet, 250 MG PO DAILY, TAB 12/25/16 Escitalopram Oxalate* (Lexapro*) 5 Mg Tablet, 5 MG PO DAILY, #30 TAB 12/25/16 Gabapentin* (Gabapentin*) 300 Mg Capsule, 300 MG PO TID, #90 CAP 12/25/16 Atorvastatin* (Atorvastatin*) 40 Mg Tablet, 40 MG PO QAM, #30 TAB 12/24/16 Atorvastatin Calcium (Atorvastatin Calcium) 10 Mg Tablet, 10 MG PO QAM, #30 TAB 12/24/16 Clopidogrel Bisulfate* (Clopidogrel Bisulfate*) 75 Mg Tablet, 75 MG PO DAILY, # 30 TAB 11/08/16 Discontinued Reported Medications Metoprolol Tartrate* (Lopressor*) 25 Mg Tab, 25 MG PO DAILY, #30 TAB 11/08/16 Atorvastatin* (Atorvastatin*) 40 Mg Tablet, 40 MG PO QHS, #30 TAB 11/08/16 Gabapentin* (Gabapentin*) 300 Mg Capsule, 300 MG PO TID, #90 CAP 11/08/16 Lisinopril* (Lisinopril*) 2.5 Mg Tablet, 2.5 MG PO DAILY, #30 TAB 11/08/16 Discontinued Scripts Polyethylene Glycol* (Miralax*) 17 Gm Powd.pack, 17 GM PO BID for 14 Days, #14 2 Refills Prov:ALEX MORATAYA MD 11/16/16 Famotidine* (Famotidine*) 20 Mg Tablet, 20 MG PO HS for 14 Days, #14 TAB Prov:ALEX MORATAYA MD 11/16/16 Escitalopram Oxalate* (Escitalopram Oxalate*) 10 Mg Tablet, 5 MG PO DAILY for 30 Days, #30 TAB Prov:ALEX MORATAYA MD 11/16/16 Acetaminophen (MAPAP) 325 Mg Tablet, 650 MG PO Q6H Y for PAIN LEVEL 1-3 OR FEVER for 1 Day, #1 TAB Prov:ALEX MORATAYA MD 11/16/16 Cilostazol* (Cilostazol*) 100 Mg Tablet, 100 MG PO BID for 30 Days, #60 TAB Prov:ALEX MORATAYA MD 11/16/16 Terbinafine Hcl* (Terbinafine Hcl*) 250 Mg Tablet, 250 MG PO BID for 10 Days, # 20 TAB 1 Refill Prov:ALEX MORATAYA MD 11/16/16 [Nicotine (14 Mg/24 Hr)] 1 PATCH PATCH No Conflict Check, 1 PATCH TRANSDERM DAILY for 1 Day, #1 2 Refills Prov:ALEX MORATAYA MD 11/16/16 Naproxen* (Naproxen*) 500 Mg Tablet, 500 MG PO BID Y for PAIN, #30 TAB Prov:AURORA MIKE MD 10/31/16 Primary Care Provider GIOVANI Yarbrough Dec 31, 2016 14:06
== END 2016-12-31 18:55 | disposition home or self-care (01) | DRG 301 ==
LOC: E/R 14:32 → TEL 19:20 → INTOOBSV 19:20 → OBSVTOIN 19:20
PROVIDERS: ADMIT Family Medicine; ATTEND Family Medicine
DX: I70.222 Atherosclerosis of native arteries of extremities with rest pain, left leg (principal); G62.9 Polyneuropathy, unspecified; F17.200 Nicotine dependence, unspecified, uncomplicated; B35.1 Tinea unguium; B18.2 Chronic viral hepatitis C; E78.5 Hyperlipidemia, unspecified; R07.9 Chest pain, unspecified; F69 Unspecified disorder of adult personality and behavior; K59.00 Constipation, unspecified; F43.22 Adjustment disorder with anxiety; Z59.0 Homelessness; Z95.828 Presence of other vascular implants and grafts
CPT/HCPCS: 36415; 71010; 80048; 80053; 81003; 82550; 82553; 83735; 84436; 84443; 84479; 84484; 85025; 85610; 85730; 93005; 93922; 96374; 96375; 97116; 97162; 97530; 99217; G0378; J1170; J1650; J2270; J2405

== ENCOUNTER 2017-02-08 14:13 | Emergency (ER) | payer OTHER ==
[~2017-02-08] VITALS: Ht 175.3 cm; Wt 90.5 kg
[~2017-02-08 14:13] MED LIST changes: -ACET325T40 PO; +ALPR1TAB7 PO; +ATOR10TA65 PO; -ESCI10TA48 PO; +ESCI5TAB PO; -FAMO20TA18 PO; +HYDR-906 PO; +LAS20 PO; -NAPR-688 PO; +NAPR550T48 PO; +NICO1PAT6 TD; -Nicotine (14 Mg/24 Hr) TRANSDERM; +PANT40TA4 PO; -POLY17PO6 PO; +TERB250T46 PO; -TERB250T9 PO; +TRAM50TA2 PO
[2017-02-08 14:16] VITALS: Ht 175.3 cm; Wt 90.5 kg
[2017-02-08] MEDS ORDERED: AZITHROMYCIN 250 MG TAB PO ONE (18:30)
[2017-02-08] MEDS ORDERED: IBUPROFEN 800 MG TAB PO ONE (18:30)
[2017-02-08] MEDS ORDERED: IBUP-1542 PO (18:45)
--- NOTE | 2017-02-08 18:47 | ERD ---
ER Documentation Chief Complaint Date/Time DATE: 02/08/17 TIME: 18:46 Chief Complaint sob x 1 day with bilat LE pain HPI Patient is a 61-year-old male with hepatitis C who presents with bilateral feet pain and chest pain. He said that he has congestion and cough. He also has chest pain. He said he has quit smoking a few weeks ago. Upon review of old medical records the patient was recently admitted on December 24 for chest pain. Upon review of old medical records this is the patient's fifth visit to the ER since 2007. His primary doctor is Dr. Sams. ROS All systems reviewed and are negative except as per history of present illness. Medications Home Meds Active Scripts Ibuprofen* (Motrin*) 600 Mg Tab, 600 MG PO Q8, #30 TAB Prov:BRITTANY TATE MD 02/08/17 Levothyroxine Sodium* (Levothyroxine Sodium*) 25 Mcg Tablet, 25 MCG PO DAILY@06 for 30 Days, #30 TAB 1 Refill Prov:ALEX MORATAYA MD 11/16/16 Aspirin* (Aspirin* EC) 81 Mg Tablet., 81 MG PO DAILY for 30 Days, #30 Prov:ALEX MORATAYA MD 11/16/16 Reported Medications Buspirone Hcl* (Buspirone Hcl*) 10 Mg Tab, 10 MG PO BID, TAB 02/08/17 Gabapentin* (Gabapentin*) 800 Mg Tablet, 800 MG PO TID, #90 TAB 02/08/17 Escitalopram Oxalate* (Escitalopram Oxalate*) 20 Mg Tablet, 20 MG PO DAILY, #30 TAB 02/08/17 Carvedilol* (Carvedilol*) 6.25 Mg Tablet, 6.25 MG PO BID, #60 TAB 02/08/17 Pantoprazole (Protonix) 40 Mg Tabec, 40 MG PO DAILY, TAB 12/25/16 Cilostazol* (Cilostazol*) 100 Mg Tablet, 100 MG PO DAILY, TAB 12/25/16 Furosemide (Lasix) 20 Mg Tab, 20 MG PO DAILY, TAB 12/25/16 Lisinopril* (Lisinopril*) 2.5 Mg Tablet, 2.5 MG PO DAILY, #30 TAB 12/25/16 Metoprolol Tartrate* (Lopressor*) 25 Mg Tab, 25 MG PO DAILY, #60 TAB 12/25/16 Terbinafine* (Lamisil*) 250 Mg Tablet, 250 MG PO DAILY, TAB 12/25/16 Atorvastatin* (Atorvastatin*) 40 Mg Tablet, 40 MG PO QAM, #30 TAB 12/24/16 Atorvastatin Calcium (Atorvastatin Calcium) 10 Mg Tablet, 10 MG PO QAM, #30 TAB 12/24/16 Clopidogrel Bisulfate* (Clopidogrel Bisulfate*) 75 Mg Tablet, 75 MG PO DAILY, # 30 TAB 11/08/16 Discontinued Reported Medications Tramadol HCl (Tramadol HCl) 50 Mg Tablet, 50 MG PO Q6H Y for PAIN, #120 TAB 12/25/16 Nicotine* (Nicotine* Patch) 21 mg/day Patch, 1 EACH TD DAILY, PATCH 12/25/16 Naproxen* (Naproxen*) 550 Mg Tablet, 550 MG PO DAILY, TAB 12/25/16 Alprazolam* (Alprazolam*) 1 Mg Tablet, 1 MG PO TID Y for ANXIETY, TAB 12/25/16 Hydrocodone/Acetaminophen ([place] 5-325 Tablet) 1 Each Tablet, 1 EACH PO Q6 Y for PAIN, TAB 12/25/16 Escitalopram Oxalate* (Lexapro*) 5 Mg Tablet, 5 MG PO DAILY, #30 TAB 12/25/16 Gabapentin* (Gabapentin*) 300 Mg Capsule, 300 MG PO TID, #90 CAP 12/25/16 Allergies Allergies: Coded Allergies: No Known Drug Allergies (Verified Allergy, Unknown, 02/08/17) PMhx/Soc History of Surgery: Yes (s/p 3 stents on left leg) Anesthesia Reaction: No Hx 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 Disorder: Yes (CVA, polyneuropathy) Hx Respiratory Disorders: Yes (COPD) Hx Cardiac Disorders: Yes (RI, HTN) Hx Psychiatric Problems: Yes (Depression, anxiety, PTSD) Hx Miscellaneous Medical Probl: Yes (OBESITY, L LE STENTS,POLY NEUROPATHY, RI, PVD, COPD) Hx Alcohol Use: No Hx Substance Use: No Hx Tobacco Use: No Smoking Status: Former smoker FmHx Family History: coronary disease Physical Exam Vitals Vital Signs Date Time Temp Pulse Resp B/P Pulse Ox O2 Delivery O2 Flow Rate FiO2 02/08/17 19:34 98.1 77 20 118/76 99 Room Air 8/1/17 14:16 98.1 66 24 127/95 99 Physical Exam Const: No acute distress Head: Atraumatic Eyes: Normal Conjunctiva ENT: Normal External Ears, Nose and Mouth. Neck: Full range of motion..~ No meningismus. Resp: Clear to auscultation bilaterally Cardio: Regular rate and rhythm, no murmurs Abd: Soft, non tender, non distended. Normal bowel sounds Skin: No petechiae or rashes Back: No midline or flank tenderness Ext: No cyanosis, or edema Neur: Awake and alert Psych: Normal Mood and Affect Results 24 hrs Current Medications Medications (Trade) Dose Ordered Sig/Briseida Route PRN Reason Start Time Stop Time Status Last Admin Dose Admin Azithromycin (Zithromax) 500 mg ONCE ONCE PO 02/08/17 18:30 02/08/17 18:31 DC 02/08/17 18:18 Ibuprofen (Motrin) 800 mg ONCE ONCE PO 02/08/17 18:30 02/08/17 18:31 DC 02/08/17 18:18 Acetaminophen/ Hydrocodone Bitart ([place] (10/325)) 1 tab ONCE ONCE PO 02/08/17 19:00 02/08/17 19:01 DC 02/08/17 18:40 Procedures/MDM EKG #1 read by me: Rate/Rhythm: Regular rate and rhythm at a rate of 63 Intervals: Normal Impression: No evidence of ischemia or arrhythmia EKG #2 read by me: Rate/Rhythm: Sinus bradycardia at a rate of 49 Intervals: Normal Impression: Sinus bradycardia without ischemia Chest X-ray 1V Interpreted by me: Soft Tissue: No acute abnormalities Bones: No acute abnormalities Mediastinum/Cardiac Silhouette/Lungs: No acute abnormalities Smoking Cessation Therapy: Pt. was lectured for greater than 3 minutes on the health risks of continued smoking and the benefits of cessation. Patient is a 61-year-old male with hepatitis C who presents with chest pain and congestion. He also has bilateral feet pain. His 2 EKGs do not show any signs of ischemia. Chest x-ray shows no pneumonia or pneumothorax. At this point I doubt acute coronary syndrome, pneumonia, pneumothorax, pulmonary embolism, or aortic dissection. I believe outpatient management is appropriate but the patient will need to follow-up with his primary doctor within 24-48 hours for reevaluation. He can return sooner for any worsening symptoms. Departure Diagnosis: Primary Impression: Chest pain Chest pain type: unspecified Qualified Code: R07.9 - Chest pain, unspecified type Condition: Fair Patient Instructions: Chest Pain, Uncertain Cause Additional Instructions: Call your primary care doctor TOMORROW for an appointment during the next 1-2 days.See the doctor sooner or return here if your condition worsens before your appointment time. BRITTANY TATE MD Feb 08, 2017 18:46
[2017-02-08] MEDS ORDERED: CARV6.2579 PO (18:54)
[2017-02-08] MEDS ORDERED: GABA-528 PO (18:55)
[2017-02-08] MEDS ORDERED: BUSP10TA2 PO (18:55)
[2017-02-08] MEDS ORDERED: ESCI20TA38 PO (18:55)
[2017-02-08] MEDS ORDERED: HYDROCODONE/APAP (10/325) TAB PO ONE (19:00)
--- NOTE | 2017-02-08 19:16 | RADRPT ---
PROCEDURE: XR Chest. CLINICAL INDICATION: Chest pain TECHNIQUE: Single AP portable chest. COMPARISON: 11/23/2016 Chest x-ray FINDINGS: The cardiomediastinal silhouette is within normal limits of size. The lungs are clear without pleur al effusion or focal consolidation. No pneumothorax. The osseous structures and soft tissues are unr emarkable. IMPRESSION: 1. No evidence for active cardiopulmonary disease. RPTAT:AAJJ Roland Abad Physician Date Time Electronically viewed and signed by Roland Abad Physician on 02/08/2017 19:16 JODY/
[2017-02-08 19:34] VITALS: BP 118/76; PULSE 77; RESP 20; TEMP 98.1
== END 2017-02-08 19:37 | disposition home or self-care (01) ==
LOC: E/R 14:13
DX: R07.9 Chest pain, unspecified (principal); I10 Essential (primary) hypertension; J44.9 Chronic obstructive pulmonary disease, unspecified; E66.9 Obesity, unspecified; Z68.29 Body mass index [BMI] 29.0-29.9, adult; Z79.82 Long term (current) use of aspirin; Z87.891 Personal history of nicotine dependence
CPT/HCPCS: 71010; 93005; Z7502; Z7610